=== PATIENT | male | born 1950 | race Caucasian/White ===

== ENCOUNTER → 2018-03-23 10:58 | Outpatient (CLI) | payer MEDICARE, OTHER, SELFPAY ==
[2018-03-23 11:21] LABS: Add Manual Diff / Slide Review NO; Basophils Percent Auto 0.9 % (0-2); Hematocrit 54.2 % (41-53); Hemoglobin 17.9 g/dL (13.5-17.5); Lymphocytes Percent Auto 19.5 % (25-40); Mean Corpuscular HGB Conc 32.9 % (30-36); Mean Corpuscular Hemoglobin 28.4 PG (26-34); Mean Corpuscular Volume 86.2 fL (80-100); Monocytes Percent Auto 8.7 % (3-14); Neutrophils Absolute Auto 4300 /uL (3000-5900); Neutrophils Percent Auto 67.9 % (50-75); Platelet Count 323 X10^3/uL (150-400); Red Blood Cell Count 6.29 X10^6/uL (4.5-5.9); Red Cell Distribution Width 17.4 % (11.6-14.8); White Blood Cell Count 6.3 X10^3/uL (4.5-11.0)
[2018-03-23 11:36] LABS: Alanine Aminotransferase 30 IU/L (21-72); Albumin 4.2 g/dL (3.5-5.0); Albumin Globulin Ratio 1.6 (1.0-2.8); Alkaline Phosphatase 67 U/L (38-126); Aspartate Aminotransferase 31 IU/L (17-59); BUN Creatinine Ratio 17.7 (6-22); Blood Urea Nitrogen 23 mg/dL (9-20); Calcium 9.3 mg/dL (8.4-10.2); Carbon Dioxide 33 mmol/L (22-32); Chloride 104 mmol/L (98-107); Estimated Glomerular Filt Rate 55.2 mL/min (>60); Globulin 2.7 g/dL (1.7-4.1); Glucose 85 mg/dL (80-110); HEMOLYSIS < 15 (0-50); Lactate Dehydrogenase 426 U/L (313-618); Potassium 4.4 mmol/L (3.4-5.1); Sodium 143 mmol/L (137-145); Total Protein 6.9 g/dL (6.3-8.2)
== END ==
PROVIDERS: Family Provider Family Medicine; PCP Family Medicine; Visit Provider Nurse Practitioner Gerontology
DX: C67.9 Malignant neoplasm of bladder, unspecified (principal)
CPT/HCPCS: 36415; 80053; 83615; 85025

== ENCOUNTER → 2018-03-30 07:56 | Outpatient (CLI) | payer MEDICARE, OTHER, SELFPAY ==
--- NOTE | 2018-03-30 07:59 | DI.US.S_ITS ---
PROCEDURE: US ABDOMEN COMPLETE INDICATIONS: HIGH BILIRUBIN TECHNIQUE: Real-time scanning was performed of the abdominal and retroperitoneal organs, with image documentation. COMPARISON: Outside Facility, RG, CT CHEST/ABD/PEL W/CONTRAST, 12/26/2015, 13:05. FINDINGS: Liver: Liver is normal in size and homogeneous in echotexture. Gallbladder: Multiple gallstones present. No gallbladder wall thickening or pericholecystic fluid. Negative sonographic Holder sign. Biliary ducts: Intrahepatic bile ducts are non-dilated. Extrahepatic bile duct caliber measures 5.0 mm. Normal is 6-7 mm or less in diameter, or 10 mm or less post-cholecystectomy. Pancreas: Visualized portions of the pancreas are sonographically normal. Spleen: Spleen is normal in size and homogeneous in echotexture. Kidneys: Kidneys are normal in size and echotexture. Right kidney measures 9.8 cm long; left kidney measures 9.1 cm long. No hydronephrosis or nephrolithiasis. No solid masses. Aorta: Visualized aorta is normal in caliber at less than 3 cm. Iliacs: Not well-seen. IVC: Intrahepatic inferior vena cava is patent. Miscellaneous: No free abdominal fluid. . IMPRESSION: Cholelithiasis without acute cholecystitis. Dictated by: Addy HAJI Interpreted: Annita Ron MD on 03/30/2018 at 9:13 Approved by: Annita Ron MD, PhD on 03/30/2018 at 9:52
== END ==
PROVIDERS: Family Provider Family Medicine; PCP Family Medicine; Visit Provider Internal Medicine Hematology & Oncology
DX: K80.20 Calculus of gallbladder without cholecystitis without obstruction (principal); R17 Unspecified jaundice; D75.1 Secondary polycythemia
CPT/HCPCS: 76700

== ENCOUNTER → 2018-06-03 11:29 | Outpatient (CLI) | payer MEDICARE, OTHER, SELFPAY ==
[2018-06-03 12:18] LABS: Add Manual Diff / Slide Review NO; Basophils Percent Auto 0.8 % (0-2); Eosinophils Percent Auto 1.3 % (2-4); Hematocrit 42.1 % (41-53); Hemoglobin 13.8 g/dL (13.5-17.5); Lymphocytes Percent Auto 26.8 % (25-40); Mean Corpuscular HGB Conc 32.8 % (30-36); Mean Corpuscular Hemoglobin 28.9 PG (26-34); Neutrophils Absolute Auto 2400 /uL (3000-5900); Neutrophils Percent Auto 60.1 % (50-75); Platelet Count 299 X10^3/uL (150-400); Red Blood Cell Count 4.78 X10^6/uL (4.5-5.9); Red Cell Distribution Width 18.6 % (11.6-14.8); White Blood Cell Count 3.9 X10^3/uL (4.5-11.0)
[2018-06-03 12:32] LABS: Alanine Aminotransferase 42 IU/L (21-72); Albumin 4.2 g/dL (3.5-5.0); Albumin Globulin Ratio 1.6 (1.0-2.8); Alkaline Phosphatase 69 U/L (38-126); Aspartate Aminotransferase 40 IU/L (17-59); BUN Creatinine Ratio 15.8 (6-22); Bilirubin Total 0.9 mg/dL (0.2-1.3); Blood Urea Nitrogen 19 mg/dL (9-20); Calcium 9.2 mg/dL (8.4-10.2); Carbon Dioxide 31 mmol/L (22-32); Chloride 104 mmol/L (98-107); Estimated Glomerular Filt Rate > 60.0 mL/min (>60); Globulin 2.7 g/dL (1.7-4.1); Glucose 92 mg/dL (80-110); HEMOLYSIS < 15 (0-50); Potassium 4.5 mmol/L (3.4-5.1); Sodium 145 mmol/L (137-145); Total Protein 6.9 g/dL (6.3-8.2)
== END ==
PROVIDERS: PCP Family Medicine; Visit Provider Internal Medicine
DX: D45 Polycythemia vera (principal)
CPT/HCPCS: 36415; 80053; 85025

== ENCOUNTER → 2018-06-17 12:20 | Outpatient (CLI) | payer MEDICARE, OTHER, SELFPAY ==
[2018-06-17 12:42] LABS: Add Manual Diff / Slide Review NO; Basophils Percent Auto 1.6 % (0-2); Eosinophils Percent Auto 2.4 % (2-4); Hematocrit 43.5 % (41-53); Hemoglobin 14.3 g/dL (13.5-17.5); Lymphocytes Percent Auto 30.5 % (25-40); Mean Corpuscular HGB Conc 32.9 % (30-36); Mean Corpuscular Hemoglobin 29.9 PG (26-34); Mean Corpuscular Volume 90.8 fL (80-100); Monocytes Percent Auto 9.4 % (3-14); Neutrophils Absolute Auto 2100 /uL (3000-5900); Neutrophils Percent Auto 56.1 % (50-75); Platelet Count 175 X10^3/uL (150-400); Red Blood Cell Count 4.79 X10^6/uL (4.5-5.9); Red Cell Distribution Width 27.4 % (11.6-14.8); White Blood Cell Count 3.8 X10^3/uL (4.5-11.0)
[2018-06-17 12:52] LABS: Alanine Aminotransferase 37 IU/L (21-72); Albumin 4.4 g/dL (3.5-5.0); Albumin Globulin Ratio 1.6 (1.0-2.8); Alkaline Phosphatase 68 U/L (38-126); Aspartate Aminotransferase 34 IU/L (17-59); BUN Creatinine Ratio 17.7 (6-22); Bilirubin Total 1.7 mg/dL (0.2-1.3); Blood Urea Nitrogen 23 mg/dL (9-20); Calcium 9.3 mg/dL (8.4-10.2); Carbon Dioxide 30 mmol/L (22-32); Chloride 102 mmol/L (98-107); Estimated Glomerular Filt Rate 55.2 mL/min (>60); Globulin 2.7 g/dL (1.7-4.1); Glucose 75 mg/dL (80-110); HEMOLYSIS < 15 (0-50); Potassium 4.5 mmol/L (3.4-5.1); Sodium 143 mmol/L (137-145); Total Protein 7.1 g/dL (6.3-8.2)
[2018-06-17 13:05] LABS: Macrocytosis 2+
== END ==
PROVIDERS: Family Provider Family Medicine; PCP Family Medicine; Visit Provider Internal Medicine
DX: D45 Polycythemia vera (principal)
CPT/HCPCS: 36415; 80053; 85025

== ENCOUNTER → 2018-08-03 12:02 | Outpatient (CLI) | payer MEDICARE, OTHER, SELFPAY ==
[2018-08-03 12:33] LABS: Add Manual Diff / Slide Review NO; Basophils Percent Auto 1.4 % (0-2); Eosinophils Percent Auto 1.3 % (2-4); Hemoglobin 14.5 g/dL (13.5-17.5); Lymphocytes Percent Auto 25.7 % (25-40); Mean Corpuscular HGB Conc 33.6 % (30-36); Mean Corpuscular Hemoglobin 34.5 PG (26-34); Mean Corpuscular Volume 102.7 fL (80-100); Monocytes Percent Auto 10.7 % (3-14); Neutrophils Absolute Auto 2600 /uL (3000-5900); Neutrophils Percent Auto 60.9 % (50-75); Platelet Count 309 X10^3/uL (150-400); Red Blood Cell Count 4.19 X10^6/uL (4.5-5.9); Red Cell Distribution Width 31.3 % (11.6-14.8); White Blood Cell Count 4.3 X10^3/uL (4.5-11.0)
[2018-08-03 13:01] LABS: Anisocytosis 2+; Macrocytosis 2+; RBC Morphology S
[2018-08-03 13:28] LABS: Alanine Aminotransferase 37 IU/L (21-72); Albumin 4.5 g/dL (3.5-5.0); Albumin Globulin Ratio 1.8 (1.0-2.8); Alkaline Phosphatase 66 U/L (38-126); Aspartate Aminotransferase 35 IU/L (17-59); BUN Creatinine Ratio 19.2 (6-22); Bilirubin Total 1.2 mg/dL (0.2-1.3); Blood Urea Nitrogen 25 mg/dL (9-20); Calcium 9.3 mg/dL (8.4-10.2); Carbon Dioxide 28 mmol/L (22-32); Chloride 103 mmol/L (98-107); Estimated Glomerular Filt Rate 55.2 mL/min (>60); Globulin 2.5 g/dL (1.7-4.1); Glucose 90 mg/dL (80-110); HEMOLYSIS < 15 (0-50); Potassium 4.6 mmol/L (3.4-5.1); Sodium 144 mmol/L (137-145)
== END ==
PROVIDERS: Family Provider Family Medicine; PCP Family Medicine; Visit Provider Internal Medicine
DX: D45 Polycythemia vera (principal)
CPT/HCPCS: 36415; 80053; 85025

== ENCOUNTER → 2018-09-02 10:10 | Outpatient (CLI) | payer MEDICARE, OTHER, SELFPAY ==
[2018-09-02 11:30] LABS: Add Manual Diff / Slide Review NO; Basophils Percent Auto 1.9 % (0-2); Eosinophils Percent Auto 1.4 % (2-4); Hematocrit 43.3 % (41-53); Hemoglobin 14.5 g/dL (13.5-17.5); Lymphocytes Percent Auto 28.2 % (25-40); Mean Corpuscular HGB Conc 33.5 % (30-36); Mean Corpuscular Hemoglobin 37.7 PG (26-34); Mean Corpuscular Volume 112.6 fL (80-100); Neutrophils Absolute Auto 2300 /uL (1500-7000); Neutrophils Percent Auto 57.5 % (50-75); Platelet Count 234 X10^3/uL (150-400); Red Blood Cell Count 3.85 X10^6/uL (4.5-5.9); Red Cell Distribution Width 23.7 % (11.6-14.8)
[2018-09-02 11:40] LABS: Anisocytosis 2+; Macrocytosis 2+
[2018-09-02 12:14] LABS: Alanine Aminotransferase 46 IU/L (21-72); Albumin 4.2 g/dL (3.5-5.0); Albumin Globulin Ratio 1.6 (1.0-2.8); Alkaline Phosphatase 61 U/L (38-126); Aspartate Aminotransferase 42 IU/L (17-59); BUN Creatinine Ratio 13.1 (6-22); Bilirubin Total 2.7 mg/dL (0.2-1.3); Blood Urea Nitrogen 17 mg/dL (9-20); Calcium 9.3 mg/dL (8.4-10.2); Carbon Dioxide 28 mmol/L (22-32); Chloride 100 mmol/L (98-107); Estimated Glomerular Filt Rate 55.1 mL/min (>60); Globulin 2.6 g/dL (1.7-4.1); Glucose 112 mg/dL (80-110); HEMOLYSIS < 15 (0-50); Potassium 4.4 mmol/L (3.4-5.1); Sodium 138 mmol/L (137-145); Total Protein 6.8 g/dL (6.3-8.2)
== END ==
PROVIDERS: Family Provider Family Medicine; PCP Family Medicine; Visit Provider Internal Medicine
DX: D45 Polycythemia vera (principal)
CPT/HCPCS: 36415; 80053; 85025

== ENCOUNTER → 2018-09-09 11:30 | Oncology outpatient (ONC) | payer MEDICARE, OTHER, SELFPAY ==
[2018-03-25 09:58] VITALS: BP 135/81; PULSE 65; RESP 18; TEMP 36.7; O2SAT 99
--- NOTE | 2018-03-25 10:18 | ONC.PN ---
Assessment and Plan (1) History of malignant neoplasm of bladder Onset Date: 08/06/17 Current visit: No Status: None History of T2 N0 muscle invasive bladder cancer, status post neoadjuvant chemotherapy followed by radical cystectomy, remains recurrence free. He has a follow-up yearly appointment with his urologist, Dr. Srinivas Barros in July, and will have a CT IVP then. (2) Malignant melanoma of left ear Onset Date: 08/06/17 Current visit: No Status: None History of multiple early stage melanomas, including melanoma in right ear lisset. No evidence of recurrence on clinical exam and no palpable lymphadenopathy. He sees his training engineer every 6-12 months. 03/25/18 10:34 03/25/18 10:38 (3) Acquired polycythemia Current visit: Yes Status: Acute Polycythemia appears to be a new problem. This is nonsmoker individual. No related symptoms. Spleen is not palpable by clinical exam. We will repeat CBC today and obtain laboratory workup including serum erythropoietin, LDH, and JAK2 mutation analysis. Abdominal ultrasound for assessment of spleen size. Follow-up in 2 weeks. 03/25/18 10:34 03/25/18 10:38 (4) Hyperbilirubinemia Current visit: Yes Status: Acute Serum bilirubin was previously normal in 2015. Since then it has increased to 2.0. No palpable hepatomegaly. Bilirubin panel is obtained today. Abdominal ultrasound for assessment of gallstones, liver size, lesions and echogenicity. Follow-up in 2 weeks. 03/25/18 10:36 PN -Subjective Interval history: Demetrio Donovan is a 67-year-old gentleman, presenting today for oncology follow-up of resected stage II bladder cancer and history of early stage melanoma. In 2014, he was diagnosed with muscle invasive, T2 N0 bladder cancer. He was treated with neoadjuvant GC chemotherapy x4 cycles, to which he had a complete pathological response. He underwent radical cystoprostatectomy with pelvic lymphadenectomy and ileal loop diversion, on 09/13/2015 at [facility] by Dr. Srinivas Barros. As mentioned, he had a complete pathological response, and remains recurrence free. Last surveillance CT scan was reportedly in 07/2017 at [facility], and that was negative. I will request and reviewe that. Of note, staging bone scan in 03/2015 had showed abnormal uptake in left 9th rib and left iliac crest, but these were present on a previous CT scan in 07/2009, therefore benign. The patient has no neurological complaints. He operates his urostomy well and has no issues with it. Daphnie sim also has history of multiple basal cell carcinomas of the skin. He has had 3 melanomas as well. Two melanoma were detected in 2015, 1 in left upper back and the other inside right ear lisset. He underwent wide local excision of left back melanoma, resection of right conchal scar, and right level 2 sentinel lymph node dissection in 01/2016 at [facility] by Dr Munir Andersen, but there was no residual melanoma, and 2 sentinel lymph nodes were negative. He did not require any further therapy. He sees his training engineer a never it every 6-12 months for complete skin survey. He comes today for a routine follow-up. He feels very well and has no complaints. CBC and CMP were done today. He has some polycythemia with hemoglobin 17.9 and hematocrit 54.2%. The rest of CBC is normal. Bilirubin is 2.0, with otherwise normal CMP. Bilirubin was 1.7 in 12/2016. Results - Imaging Additional studies: Procedures Injection or infusion of cancer chemotherapeutic substance (03/16/15) Insertion of totally implantable vascular access device [VAD] (05/02/15) Other cystoscopy (03/16/15) Other genitourinary instillation (03/16/15) Other soft tissue x-ray of chest wall (05/02/15) Other transurethral excision or destruction of lesion or tissue of bladder (03/16/15) Home Medications and Allergies Home Medications Medication Instructions Recorded Confirmed Type duloxetine [Cymbalta] 30 mg PO QDAY #90 cap 08/06/17 Rx omeprazole magnesium [Prilosec OTC] 20 mg PO PRN #0 08/06/17 History [D-MANNOSE] 500 mg PO Q DAY #30 mg 09/02/17 History multivitamin [Multiple Vitamins] 1 tab PO QDAY #0 09/02/17 History Allergies Allergy/AdvReac Type Severity Reaction Status Date / Time Sulfa (Sulfonamide Allergy Intermediate RASH Unverified 12/09/17 12:26 Antibiotics) (DON'T [SULFA (SULFONAMIDE KNOW IF IT ANTIBIOTICS)] WAS THIS OR THE PYRIDIUM) phenazopyridine AdvReac Intermediate RASH Unverified 04/11/18 12:26 [From PYRIDIUM] (UNSURE IF IT WAS THIS OR THE SULFA) Exam Vital signs: Last Vital Signs Temp 98.1 F 03/25/18 09:58 Pulse 65 03/25/18 09:58 Resp 18 03/25/18 09:58 BP 135/81 H 03/25/18 09:58 Pulse Ox 99 03/25/18 09:58 - Constitutional positive no acute distress - Routine HEENT Exam Head: Present: normocephalic, atraumatic ENT: Present: mucous membranes moist, external ear normal - Routine Neck Exam Present: supple. Absent: lymphadenopathy - Routine Respiratory Exam Present: Clear to auscultation bilaterally - Routine Cardiovascular Exam Present: RRR - Routine Abdominal Exam Present: soft. Absent: organomegaly, mass - Routine Extremities Exam Absent: edema
--- NOTE | 2018-03-25 10:30 | P.PNONC_ITS ---
Assessment and Plan (1) History of malignant neoplasm of bladder Onset Date: 08/06/17 Current visit: No Status: None History of T2 N0 muscle invasive bladder cancer, status post neoadjuvant chemotherapy followed by radical cystectomy, remains recurrence free. He has a follow-up yearly appointment with his urologist, Dr. Srinivas Barros in July , and will have a CT IVP then. (2) Malignant melanoma of left ear Onset Date: 08/06/17 Current visit: No Status: None History of multiple early stage melanomas, including melanoma in right ear lisset. No evidence of recurrence on clinical exam and no palpable lymphadenopathy. He sees his clean up worker every 6-12 months. 03/25/18 10:34 03/25/18 10:38 (3) Acquired polycythemia Current visit: Yes Status: Acute Polycythemia appears to be a new problem. This is nonsmoker individual. No related symptoms. Spleen is not palpable by clinical exam. We will repeat CBC today and obtain laboratory workup including serum erythropoietin, LDH, and JAK2 mutation analysis. Abdominal ultrasound for assessment of spleen size. Follow-up in 2 weeks. 03/25/18 10:34 03/25/18 10:38 (4) Hyperbilirubinemia Current visit: Yes Status: Acute Serum bilirubin was previously normal in 2015. Since then it has increased to 2.0. No palpable hepatomegaly. Bilirubin panel is obtained today. Abdominal ultrasound for assessment of gallstones, liver size, lesions and echogenicity. Follow-up in 2 weeks. 03/25/18 10:36 PN -Subjective Interval history: Demetrio Donovan is a 67-year-old gentleman, presenting today for oncology follow- up of resected stage II bladder cancer and history of early stage melanoma. In 2014, he was diagnosed with muscle invasive, T2 N0 bladder cancer. He was treated with neoadjuvant GC chemotherapy x4 cycles, to which he had a complete pathological response. He underwent radical cystoprostatectomy with pelvic lymphadenectomy and ileal loop diversion, on 09/13/2015 at [facility] by Dr. Srinivas Barros. As mentioned, he had a complete pathological response, and remains recurrence free. Last surveillance CT scan was reportedly in 07/2017 at [facility], and that was negative. I will request and reviewe that. Of note, staging bone scan in 03/2015 had showed abnormal uptake in left 9th rib and left iliac crest , but these were present on a previous CT scan in 07/2009, therefore benign. The patient has no neurological complaints. He operates his urostomy well and has no issues with it. Daphnie sim also has history of multiple basal cell carcinomas of the skin. He has had 3 melanomas as well. Two melanoma were detected in 2015, 1 in left upper back and the other inside right ear lisset. He underwent wide local excision of left back melanoma, resection of right conchal scar, and right level 2 sentinel lymph node dissection in 01/2016 at [facility] by Dr Munir Andersen, but there was no residual melanoma, and 2 sentinel lymph nodes were negative. He did not require any further therapy. He sees his clean up worker a never it every 6-12 months for complete skin survey. He comes today for a routine follow-up. He feels very well and has no complaints. CBC and CMP were done today. He has some polycythemia with hemoglobin 17.9 and hematocrit 54.2%. The rest of CBC is normal. Bilirubin is 2.0, with otherwise normal CMP. Bilirubin was 1.7 in 12/2016. Results - Imaging Additional studies: Procedures Injection or infusion of cancer chemotherapeutic substance (03/16/15) Insertion of totally implantable vascular access device [VAD] (05/02/15) Other cystoscopy (03/16/15) Other genitourinary instillation (03/16/15) Other soft tissue x-ray of chest wall (05/02/15) Other transurethral excision or destruction of lesion or tissue of bladder () Home Medications and Allergies Home Medications Medication Instructions Recorded Confirmed Type duloxetine [Cymbalta] 30 mg PO QDAY #90 cap 08/06/17 Rx omeprazole magnesium [Prilosec OTC] 20 mg PO PRN #0 08/06/17 History [D-MANNOSE] 500 mg PO Q DAY #30 mg 09/02/17 History multivitamin [Multiple Vitamins] 1 tab PO QDAY #0 09/02/17 History Allergies Allergy/AdvReac Type Severity Reaction Status Date / Time Sulfa (Sulfonamide Allergy Intermediate RASH Unverified 12/09/17 12:26 Antibiotics) (DON'T [SULFA (SULFONAMIDE KNOW IF IT ANTIBIOTICS)] WAS THIS OR THE PYRIDIUM) phenazopyridine AdvReac Intermediate RASH Unverified 04/11/18 12:26 [From PYRIDIUM] (UNSURE IF IT WAS THIS OR THE SULFA) Exam Vital signs: Last Vital Signs Temp 98.1 F 03/25/18 09:58 Pulse 65 03/25/18 09:58 Resp 18 03/25/18 09:58 BP 135/81 H 03/25/18 09:58 Pulse Ox 99 03/25/18 09:58 - Constitutional positive no acute distress - Routine HEENT Exam Head: Present: normocephalic, atraumatic ENT: Present: mucous membranes moist, external ear normal - Routine Neck Exam Present: supple. Absent: lymphadenopathy - Routine Respiratory Exam Present: Clear to auscultation bilaterally - Routine Cardiovascular Exam Present: RRR - Routine Abdominal Exam Present: soft. Absent: organomegaly, mass - Routine Extremities Exam Absent: edema
[2018-03-25 12:18] LABS: Add Manual Diff / Slide Review NO; Basophils Percent Auto 1.2 % (0-2); Eosinophils Percent Auto 3.3 % (2-4); Hematocrit 54.6 % (41-53); Hemoglobin 18.1 g/dL (13.5-17.5); Lymphocytes Percent Auto 21.3 % (25-40); Mean Corpuscular HGB Conc 33.1 % (30-36); Mean Corpuscular Hemoglobin 28.4 PG (26-34); Mean Corpuscular Volume 85.9 fL (80-100); Monocytes Percent Auto 9.7 % (3-14); Neutrophils Absolute Auto 3600 /uL (3000-5900); Neutrophils Percent Auto 64.5 % (50-75); Platelet Count 317 X10^3/uL (150-400); Red Blood Cell Count 6.35 X10^6/uL (4.5-5.9); Red Cell Distribution Width 16.8 % (11.6-14.8); White Blood Cell Count 5.6 X10^3/uL (4.5-11.0)
[2018-03-25 12:35] LABS: Bilirubin Direct 0.3 mg/dL (0.0-0.4); Bilirubin Total 1.7 mg/dL (0.2-1.3)
[2018-03-25 12:37] LABS: Alanine Aminotransferase 34 IU/L (21-72); Albumin 4.3 g/dL (3.5-5.0); Albumin Globulin Ratio 1.4 (1.0-2.8); Alkaline Phosphatase 75 U/L (38-126); Aspartate Aminotransferase 40 IU/L (17-59); BUN Creatinine Ratio 18.5 (6-22); Bilirubin Total 1.6 mg/dL (0.2-1.3); Blood Urea Nitrogen 24 mg/dL (9-20); Calcium 9.3 mg/dL (8.4-10.2); Carbon Dioxide 32 mmol/L (22-32); Chloride 100 mmol/L (98-107); Estimated Glomerular Filt Rate 55.2 mL/min (>60); Glucose 79 mg/dL (80-110); HEMOLYSIS < 15 (0-50); Lactate Dehydrogenase 452 U/L (313-618); Sodium 140 mmol/L (137-145); Total Protein 7.3 g/dL (6.3-8.2)
[2018-03-26 13:40] LABS: Erythropoietin < 1.0 mIU/mL (2.6-18.5)
[2018-04-15 14:42] VITALS: BP 137/89; PULSE 65; RESP 16; TEMP 36.7; O2SAT 98
--- NOTE | 2018-04-15 15:09 | ONC.PN ---
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 Patient is now recurrence free. [facility] by Dr. Srinivas martinez. Current visit: No Status: None (2) Malignant melanoma of left ear Onset Date: 08/06/17 Problem details: No evidence of recurrence on [place] examination and no palpable lymphadenopathy. Patient is being followed at [facility] business solution analyst every 6-12 months. 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 He is not being followed at [facility]. Phlebotomy has been initiated since March at [facility] The next phlebotomy has been scheduled for April 22 at [facility]. Patient and patient's before continue follow-up at [facility] for multiple medical problems including polycythemia vera, urothelial carcinoma of the bladder and melanoma of the skin. Current visit: Yes Status: Acute (4) Hyperbilirubinemia Current visit: Yes Status: Acute - Time Spent with Patient I talked with the patient and patient's that I would tentatively scheduled the patient to come back to see us in about 2-3 months. Meanwhile if there is any new events or if the patient wishes to come to locally to continue phlebotomy, I encouraged the patient to call us. PN -Subjective Interval history: Demetrio Donovan is a 67-year-old gentleman with history of bladder cancer and early stage melanoma. In 2014, he was diagnosed with muscle invasive, T2 N0 bladder cancer. He was treated with neoadjuvant GC chemotherapy x4 cycles, to which he had a complete pathological response. He underwent radical cystoprostatectomy with pelvic lymphadenectomy and ileal loop diversion, on 09/13/2015 at [facility] by Dr. Srinivas Barros. As mentioned, he had a complete pathological response, and remains recurrence free. 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 He has had 3 melanomas as well. Two melanoma were detected in 2015, 1 in left upper back and the other inside right ear lisset. He underwent wide local excision of left back melanoma, resection of right conchal scar, and right level 2 sentinel lymph node dissection in 01/2016 at [facility] by Dr Munir Anderesn, but there was no residual melanoma, and 2 sentinel lymph nodes were negative. He did not require any further therapy. He sees his business solution analyst every 6-12 months for complete skin survey. The patient presents here today for scheduled follow-up visit. The test for AYAH 2 mutation showed that patient actually is JAK2 Exon 12 mutation positive. Patient over the weekend was evaluated at the [facility] and underwent a phlebotomy. The next phlebotomy has already been scheduled for next . Clinically patient has been doing well. Patient said that the headache seems to be getting better. No aqua sensitivity. No shortness of breath, no chest pain. Patient is also taking aspirin after he receives the diagnosis of the polycythemia vera. Patient currently is being followed at [facility] by Dr. Asha Reed. No bone marrow aspiration biopsy was recommended at this moment. Results - Labs Laboratory Last Values WBC 5.6 X10^3/uL (4.5-11.0) 03/25/18 11:38 RBC 6.35 X10^6/uL (4.5-5.9) H 03/25/18 11:38 Hgb 18.1 g/dL (13.5-17.5) H 03/25/18 11:38 Hct 54.6 % (41-53) H 03/25/18 11:38 MCV 85.9 fL (80-100) 03/25/18 11:38 MCH 28.4 PG (26-34) 03/25/18 11:38 MCHC 33.1 % (30-36) 03/25/18 11:38 RDW 16.8 % (11.6-14.8) H 03/25/18 11:38 Plt Count 317 X10^3/uL (150-400) 03/25/18 11:38 Neut % (Auto) 64.5 % (50-75) 03/25/18 11:38 Lymph % (Auto) 21.3 % (25-40) L 03/25/18 11:38 [place] % (Auto) 9.7 % (3-14) 03/25/18 11:38 Eos % (Auto) 3.3 % (2-4) 03/25/18 11:38 Baso % (Auto) 1.2 % (0-2) 03/25/18 11:38 Neut # (Auto) 3600 /uL (4791-2893) 03/25/18 11:38 Sodium 140 mmol/L (137-145) 03/25/18 11:38 Potassium 4.0 mmol/L (3.4-5.1) 03/25/18 11:38 Chloride 100 mmol/L (98-107) 03/25/18 11:38 Carbon Dioxide 32 mmol/L (22-32) 03/25/18 11:38 BUN 24 mg/dL (9-20) H 03/25/18 11:38 Creatinine 1.30 mg/dL (0.66-1.25) H 03/25/18 11:38 Estimated GFR 55.2 mL/min (>60) L 03/25/18 11:38 BUN/Creatinine Ratio 18.5 (6-22) 03/25/18 11:38 Glucose 79 mg/dL (80-110) L 03/25/18 11:38 Calcium 9.3 mg/dL (8.4-10.2) 03/25/18 11:38 Erythropoietin < 1.0 mIU/mL (2.6-18.5) L 03/25/18 11:38 Total Bilirubin 1.6 mg/dL (0.2-1.3) H 03/25/18 11:38 Direct Bilirubin 0.3 mg/dL (0.0-0.4) 03/25/18 11:38 AST 40 IU/L (17-59) 03/25/18 11:38 ALT 34 IU/L (21-72) 03/25/18 11:38 Alkaline Phosphatase 75 U/L (38-126) 03/25/18 11:38 Lactate Dehydrogenase 452 U/L (313-618) 03/25/18 11:38 Total Protein 7.3 g/dL (6.3-8.2) 03/25/18 11:38 Albumin 4.3 g/dL (3.5-5.0) 03/25/18 11:38 Globulin 3.0 g/dL (1.7-4.1) 03/25/18 11:38 Albumin/Globulin Ratio 1.4 (1.0-2.8) 03/25/18 11:38 Ref Test (Refrig) 03/25/18 11:38 - Imaging Additional studies: Procedures Injection or infusion of cancer chemotherapeutic substance (03/16/15) Insertion of totally implantable vascular access device [VAD] (05/02/15) Other cystoscopy (03/16/15) Other genitourinary instillation (03/16/15) Other soft tissue x-ray of chest wall (05/02/15) Other transurethral excision or destruction of lesion or tissue of bladder (03/16/15) Home Medications and Allergies Home Medications Medication Instructions Recorded Confirmed Type [D-MANNOSE] 500 mg PO Q DAY #30 mg 09/02/17 04/15/18 History aspirin 81 mg PO DAILY 04/15/18 04/15/18 History duloxetine [Cymbalta] 300 mg PO QDAY 04/15/18 History hydroxyurea 500 mg PO DAILY 04/15/18 04/15/18 History Allergies Allergy/AdvReac Type Severity Reaction Status Date / Time Sulfa (Sulfonamide Allergy Intermediate RASH Verified 04/15/18 14:45 Antibiotics) (DON'T [SULFA (SULFONAMIDE KNOW IF IT ANTIBIOTICS)] WAS THIS OR THE PYRIDIUM) phenazopyridine AdvReac Intermediate RASH Verified 04/15/18 14:45 [From PYRIDIUM] (UNSURE IF IT WAS THIS OR THE SULFA) Exam Vital signs: Last Vital Signs Temp 98.1 F 04/15/18 14:42 Pulse 65 04/15/18 14:42 Resp 16 04/15/18 14:42 BP 137/89 H 04/15/18 14:42 Pulse Ox 98 04/15/18 14:42 - Constitutional positive no acute distress Comments: He is a very well developed and nourished. - Routine HEENT Exam Head: Present: normocephalic, atraumatic Eye: Present: EOMI, PERRL, normal accommodation. Absent: conjunctival icterus ENT: Present: mucous membranes moist - Routine Neck Exam Present: supple, full ROM, JVD. Absent: carotid bruit - Routine Respiratory Exam Present: Clear to auscultation bilaterally. Absent: wheezes - Routine Cardiovascular Exam Present: RRR, S1, S2. Absent: murmur, gallop, rubs - Routine Abdominal Exam Present: soft, normoactive bowel sounds. Absent: tenderness Palpation/Percussion: Absent: hepatomegaly, splenomegaly - Routine Extremities Exam Present: full ROM. Absent: cyanosis, clubbing, edema - Routine Back/Spine Exam Back/Spine: Present: full ROM. Absent: vertebral tenderness - Routine Neurological Exam Present: alert, oriented X3, CN II-XII intact. Absent: sensory deficit, motor deficit - Routine Psychiatric Exam Present: normal affect, normal thought process, cooperative (Your is), good insight, good judgment. Absent: depressed (It)
--- NOTE | 2018-04-15 15:14 | P.PNONC_ITS ---
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 Patient is now recurrence free. Patient is being followed at [facility] by Dr. Srinivas martinez. Current visit: No Status: None (2) Malignant melanoma of left ear Onset Date: 08/06/17 Problem details: No evidence of recurrence on [place] examination and no palpable lymphadenopathy. Patient is being followed at [facility] lithographic photographer apprentice every 6-12 months. 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 He is not being followed at [facility]. Phlebotomy has been initiated since March at [facility]. The next phlebotomy has been scheduled for April 22 at [facility]. Patient and patient's before continue follow-up at [facility] for multiple medical problems including polycythemia vera, urothelial carcinoma of the bladder and melanoma of the skin. Current visit: Yes Status : Acute (4) Hyperbilirubinemia Current visit: Yes Status: Acute - Time Spent with Patient I talked with the patient and patient's that I would tentatively scheduled the patient to come back to see us in about 2-3 months. Meanwhile if there is any new events or if the patient wishes to come to locally to continue phlebotomy, I encouraged the patient to call us. PN -Subjective Interval history: Demetrio Donovan is a 67-year-old gentleman with history of bladder cancer and early stage melanoma. In 2014, he was diagnosed with muscle invasive, T2 N0 bladder cancer. He was treated with neoadjuvant GC chemotherapy x4 cycles, to which he had a complete pathological response. He underwent radical cystoprostatectomy with pelvic lymphadenectomy and ileal loop diversion, on at [facility] by Dr. Srinivas Barros. As mentioned, he had a complete pathological response, and remains recurrence free. 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 He has had 3 melanomas as well. Two melanoma were detected in 2015, 1 in left upper back and the other inside right ear lisset. He underwent wide local excision of left back melanoma, resection of right conchal scar, and right level 2 sentinel lymph node dissection in 2015 at [facility] by Dr Munir Andersen, but there was no residual melanoma, and 2 sentinel lymph nodes were negative. He did not require any further therapy. He sees his lithographic photographer apprentice every 6-12 months for complete skin survey. The patient presents here today for scheduled follow-up visit. The test for AYAH 2 mutation showed that patient actually is JAK2 Exon 12 mutation positive. Patient over the weekend was evaluated at the [facility] and underwent a phlebotomy. The next phlebotomy has already been scheduled for next . Clinically patient has been doing well. Patient said that the headache seems to be getting better. No aqua sensitivity. No shortness of breath, no chest pain. Patient is also taking aspirin after he receives the diagnosis of the polycythemia vera. Patient currently is being followed at [facility] by Dr. Asha Reed. No bone marrow aspiration biopsy was recommended at this moment. Results - Labs Laboratory Last Values WBC 5.6 X10^3/uL (4.5-11.0) 03/25/18 11:38 RBC 6.35 X10^6/uL (4.5-5.9) H 03/25/18 11:38 Hgb 18.1 g/dL (13.5-17.5) H 03/25/18 11:38 Hct 54.6 % (41-53) H 03/25/18 11:38 MCV 85.9 fL (80-100) 03/25/18 11:38 MCH 28.4 PG (26-34) 03/25/18 11:38 MCHC 33.1 % (30-36) 03/25/18 11:38 RDW 16.8 % (11.6-14.8) H 03/25/18 11:38 Plt Count 317 X10^3/uL (150-400) 03/25/18 11:38 Neut % (Auto) 64.5 % (50-75) 03/25/18 11:38 Lymph % (Auto) 21.3 % (25-40) L 03/25/18 11:38 Ceiba % (Auto) 9.7 % (3-14) 03/25/18 11:38 Eos % (Auto) 3.3 % (2-4) 03/25/18 11:38 Baso % (Auto) 1.2 % (0-2) 03/25/18 11:38 Neut # (Auto) 3600 /uL (6731-3678) 03/25/18 11:38 Sodium 140 mmol/L (137-145) 03/25/18 11:38 Potassium 4.0 mmol/L (3.4-5.1) 03/25/18 11:38 Chloride 100 mmol/L (98-107) 03/25/18 11:38 Carbon Dioxide 32 mmol/L (22-32) 03/25/18 11:38 BUN 24 mg/dL (9-20) H 03/25/18 11:38 Creatinine 1.30 mg/dL (0.66-1.25) H 03/25/18 11:38 Estimated GFR 55.2 mL/min (>60) L 03/25/18 11:38 BUN/Creatinine Ratio 18.5 (6-22) 03/25/18 11:38 Glucose 79 mg/dL (80-110) L 03/25/18 11:38 Calcium 9.3 mg/dL (8.4-10.2) 03/25/18 11:38 Erythropoietin < 1.0 mIU/mL (2.6-18.5) L 03/25/18 11:38 Total Bilirubin 1.6 mg/dL (0.2-1.3) H 03/25/18 11:38 Direct Bilirubin 0.3 mg/dL (0.0-0.4) 03/25/18 11:38 AST 40 IU/L (17-59) 03/25/18 11:38 ALT 34 IU/L (21-72) 03/25/18 11:38 Alkaline Phosphatase 75 U/L (38-126) 03/25/18 11:38 Lactate Dehydrogenase 452 U/L (313-618) 03/25/18 11:38 Total Protein 7.3 g/dL (6.3-8.2) 03/25/18 11:38 Albumin 4.3 g/dL (3.5-5.0) 03/25/18 11:38 Globulin 3.0 g/dL (1.7-4.1) 03/25/18 11:38 Albumin/Globulin Ratio 1.4 (1.0-2.8) 03/25/18 11:38 Ref Test (Refrig) 03/25/18 11:38 - Imaging Additional studies: Procedures Injection or infusion of cancer chemotherapeutic substance (03/16/15) Insertion of totally implantable vascular access device [VAD] (05/02/15) Other cystoscopy (03/16/15) Other genitourinary instillation (03/16/15) Other soft tissue x-ray of chest wall (05/02/15) Other transurethral excision or destruction of lesion or tissue of bladder () Home Medications and Allergies Home Medications Medication Instructions Recorded Confirmed Type [D-MANNOSE] 500 mg PO Q DAY #30 mg 09/02/17 04/15/18 History aspirin 81 mg PO DAILY 04/15/18 04/15/18 History duloxetine [Cymbalta] 300 mg PO QDAY 04/15/18 History hydroxyurea 500 mg PO DAILY 04/15/18 04/15/18 History Allergies Allergy/AdvReac Type Severity Reaction Status Date / Time Sulfa (Sulfonamide Allergy Intermediate RASH Verified 04/15/18 14:45 Antibiotics) (DON'T [SULFA (SULFONAMIDE KNOW IF IT ANTIBIOTICS)] WAS THIS OR THE PYRIDIUM) phenazopyridine AdvReac Intermediate RASH Verified 04/15/18 14:45 [From PYRIDIUM] (UNSURE IF IT WAS THIS OR THE SULFA) Exam Vital signs: Last Vital Signs Temp 98.1 F 04/15/18 14:42 Pulse 65 04/15/18 14:42 Resp 16 04/15/18 14:42 BP 137/89 H 04/15/18 14:42 Pulse Ox 98 04/15/18 14:42 - Constitutional positive no acute distress Comments: He is a very well developed and nourished. - Routine HEENT Exam Head: Present: normocephalic, atraumatic Eye: Present: EOMI, PERRL, normal accommodation. Absent: conjunctival icterus ENT: Present: mucous membranes moist - Routine Neck Exam Present: supple, full ROM, JVD. Absent: carotid bruit - Routine Respiratory Exam Present: Clear to auscultation bilaterally. Absent: wheezes - Routine Cardiovascular Exam Present: RRR, S1, S2. Absent: murmur, gallop, rubs - Routine Abdominal Exam Present: soft, normoactive bowel sounds. Absent: tenderness Palpation/Percussion: Absent: hepatomegaly, splenomegaly - Routine Extremities Exam Present: full ROM. Absent: cyanosis, clubbing, edema - Routine Back/Spine Exam Back/Spine: Present: full ROM. Absent: vertebral tenderness - Routine Neurological Exam Present: alert, oriented X3, CN II-XII intact. Absent: sensory deficit, motor deficit - Routine Psychiatric Exam Present: normal affect, normal thought process, cooperative (Your is), good insight, good judgment. Absent: depressed (It)
[2018-06-17 13:35] VITALS: BP 130/78; PULSE 60; RESP 18; TEMP 37; O2SAT 98
--- NOTE | 2018-06-17 14:38 | ONC.APRN.PN ---
PN -Subjective Interval history: Demetrio Donovan is a 67-year-old gentleman with history of bladder cancer and early stage melanoma. In 2014, he was diagnosed with muscle invasive, T2 N0 bladder cancer. He was treated with neoadjuvant GC chemotherapy x4 cycles, to which he had a complete pathological response. He underwent radical cystoprostatectomy with pelvic lymphadenectomy and ileal loop diversion, on 09/13/2015 at [facility] by Dr. Srinivas Barros. As mentioned, he had a complete pathological response, and remains recurrence free. 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 He has had 3 melanomas as well. Two melanoma were detected in 2016, 1 in left upper back and the other inside right ear lisset. He underwent wide local excision of left back melanoma, resection of right conchal scar, and right level 2 sentinel lymph node dissection in 01/2016 at [facility] by Dr Munir Andersen, but there was no residual melanoma, and 2 sentinel lymph nodes were negative. He did not require any further therapy. 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 The patient presents here today for scheduled follow-up visit. The test for AYAH 2 mutation showed that patient actually is JAK2 mutation positive. Patient is also followed at [facility] . He underwent phlebotomy approx 3 months ago. Clinically patient has been doing well. Patient said that the headache seems to be getting better. No shortness of breath, no chest pain. Patient is also taking aspirin since receiving the diagnosis of the polycythemia vera. Patient currently is being followed at [facility] by Dr. Asha Reed. No bone marrow aspiration biopsy indicated per [facility]. Current dose of hydroxy urea is 500 mg once daily. Pt is alaso under the care of dermatology Dr Tracy in [place] and Dr Barros urology who manages his bladder ca with imaging, cystoscopys. Home Medications and Allergies Home Medications Medication Instructions Recorded Confirmed Type [D-MANNOSE] 500 mg PO Q DAY #30 mg 09/02/17 04/15/18 History aspirin 81 mg PO DAILY 04/15/18 04/15/18 History duloxetine [Cymbalta] 300 mg PO QDAY 04/15/18 History hydroxyurea 500 mg PO BID 04/15/18 06/17/18 History Allergies Allergy/AdvReac Type Severity Reaction Status Date / Time Sulfa (Sulfonamide Allergy Intermediate RASH Verified 04/15/18 14:45 Antibiotics) (DON'T [SULFA (SULFONAMIDE KNOW IF IT ANTIBIOTICS)] WAS THIS OR THE PYRIDIUM) phenazopyridine AdvReac Intermediate RASH Verified 04/15/18 14:45 [From PYRIDIUM] (UNSURE IF IT WAS THIS OR THE SULFA) Exam - Constitutional positive no acute distress, positive average body habitus - Routine HEENT Exam ENT: Present: mucous membranes moist, oropharynx clear - Routine Neck Exam Absent: supple, lymphadenopathy - Routine Chest/Breast/Axilla Exam Axillae: Absent: lymphadenopathy, mass, tenderness - Routine Respiratory Exam Present: Clear to auscultation bilaterally. Absent: rales, rhonchi, wheezes - Routine Cardiovascular Exam Present: RRR, S1, S2. Absent: murmur, gallop, rubs, JVD - Routine Abdominal Exam Present: soft, normoactive bowel sounds, ostomy. Absent: tenderness, distended, organomegaly, mass - Routine Extremities Exam Absent: edema, calf tenderness - Routine Skin Exam Present: intact, normal turgor. Absent: petechiae, rash - Routine Neurological Exam Present: alert, oriented X3 - Routine Psychiatric Exam Present: normal affect Results - Labs Laboratory Last Values WBC 5.6 X10^3/uL (4.5-11.0) 03/25/18 11:38 RBC 6.35 X10^6/uL (4.5-5.9) H 03/25/18 11:38 Hgb 18.1 g/dL (13.5-17.5) H 03/25/18 11:38 Hct 54.6 % (41-53) H 03/25/18 11:38 MCV 85.9 fL (80-100) 03/25/18 11:38 MCH 28.4 PG (26-34) 03/25/18 11:38 MCHC 33.1 % (30-36) 03/25/18 11:38 RDW 16.8 % (11.6-14.8) H 03/25/18 11:38 Plt Count 317 X10^3/uL (150-400) 03/25/18 11:38 Neut % (Auto) 64.5 % (50-75) 03/25/18 11:38 Lymph % (Auto) 21.3 % (25-40) L 03/25/18 11:38 Gilmer % (Auto) 9.7 % (3-14) 03/25/18 11:38 Eos % (Auto) 3.3 % (2-4) 03/25/18 11:38 Baso % (Auto) 1.2 % (0-2) 03/25/18 11:38 Neut # (Auto) 3600 /uL (2755-8261) 03/25/18 11:38 Sodium 140 mmol/L (137-145) 03/25/18 11:38 Potassium 4.0 mmol/L (3.4-5.1) 03/25/18 11:38 Chloride 100 mmol/L (98-107) 03/25/18 11:38 Carbon Dioxide 32 mmol/L (22-32) 03/25/18 11:38 BUN 24 mg/dL (9-20) H 03/25/18 11:38 Creatinine 1.30 mg/dL (0.66-1.25) H 03/25/18 11:38 Estimated GFR 55.2 mL/min (>60) L 03/25/18 11:38 BUN/Creatinine Ratio 18.5 (6-22) 03/25/18 11:38 Glucose 79 mg/dL (80-110) L 03/25/18 11:38 Calcium 9.3 mg/dL (8.4-10.2) 03/25/18 11:38 Erythropoietin < 1.0 mIU/mL (2.6-18.5) L 03/25/18 11:38 Total Bilirubin 1.6 mg/dL (0.2-1.3) H 03/25/18 11:38 Direct Bilirubin 0.3 mg/dL (0.0-0.4) 03/25/18 11:38 AST 40 IU/L (17-59) 03/25/18 11:38 ALT 34 IU/L (21-72) 03/25/18 11:38 Alkaline Phosphatase 75 U/L (38-126) 03/25/18 11:38 Lactate Dehydrogenase 452 U/L (313-618) 03/25/18 11:38 Total Protein 7.3 g/dL (6.3-8.2) 03/25/18 11:38 Albumin 4.3 g/dL (3.5-5.0) 03/25/18 11:38 Globulin 3.0 g/dL (1.7-4.1) 03/25/18 11:38 Albumin/Globulin Ratio 1.4 (1.0-2.8) 03/25/18 11:38 Ref Test (Refrig) 03/25/18 11:38 - Imaging Additional studies: Procedures Injection or infusion of cancer chemotherapeutic substance (03/16/15) Insertion of totally implantable vascular access device [VAD] (05/02/15) Other cystoscopy (03/16/15) Other genitourinary instillation (03/16/15) Other soft tissue x-ray of chest wall (05/02/15) Other transurethral excision or destruction of lesion or tissue of bladder (03/16/15) Assessment and Plan (1) History of malignant neoplasm of bladder Onset Date: 08/06/17 Problem details: 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 Patient is now recurrence free. Patient is being followed at [facility] by Dr. Srinivas martinez. Current visit: No Status: None No new complaints today. No dysuria, hematuria. No flank pain. He is followed by urology Dr. Barros who manages with imaging, cystoscopys. Pt has an appoint in 2-3 weeks. (2) Malignant melanoma of left ear Onset Date: 08/06/17 Problem details: No evidence of recurrence on [place] examination and no palpable lymphadenopathy. Patient is being followed at [facility] professor of business every 6-12 months. Current visit: No Status: None Patient reports no skin changes today. No red flags on exam. Patient is followed by Dermatology Dr. Tracy whom he sees every 3 months. 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 He is not being followed at [facility]. Phlebotomy has been initiated since March at [facility]. The next phlebotomy has been scheduled for April 22 at [facility]. Patient and patient's before continue follow-up at [facility] for multiple medical problems including polycythemia vera, urothelial carcinoma of the bladder and melanoma of the skin. Current visit: Yes Status: Acute Managed primarily at [facility] with therapeutic phlebotomy. Blood work today is quite stable with a CBC demonstrating hemoglobin of 14.0 hematocrit 45.0. Platelets 993030. White count 3.2. Patient overall reports he is feeling quite well. No change in appetite. No early satiety. He has an appointment July 01 at [facility]. (4) Hyperbilirubinemia Current visit: Yes Status: Acute Bili Trejo total 1.1 today. Direct bilirubin 0.2. CMP unremarkable. - Time Spent with Patient 30 mins face to face 5 mins records review from [facility], Dr Burns 10 mins dictation
--- NOTE | 2018-09-09 11:46 | ONC.PN ---
PN -Subjective Interval history: Demetrio Donovan is a 68-year-old gentleman with history of bladder cancer and early stage melanoma. In 2014, he was diagnosed with muscle invasive, T2 N0 bladder cancer. He was treated with neoadjuvant GC x4 cycles, to which he had a complete pathological response. He underwent radical cystoprostatectomy with pelvic lymphadenectomy and ileal loop diversion on 09/13/2015 at [facility] by Dr. Srinivas Barros. Path showed complete pathological response. 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 He has had 3 melanomas as well. Two melanoma were detected in 2016, 1 in left upper back and the other inside right ear lisset. He underwent wide local excision of left back melanoma, resection of right conchal scar, and right level 2 sentinel lymph node dissection in 01/2016 at [facility] by Dr Munir Andersen, but there was no residual melanoma, and 2 sentinel lymph nodes were negative. He did not require any further therapy. He sees his analytic programmer every 6-12 months for complete skin survey. The patient presents here today for scheduled follow-up visit. The test for AYAH 2 mutation showed that patient actually is JAK2 mutation positive. Patient is also followed at [facility] . He underwent phlebotomy approx 3 months ago. Clinically patient has been doing well. Patient said that the headache seems to be getting better. No shortness of breath, no chest pain. Patient is also taking aspirin since receiving the diagnosis of the polycythemia vera. Patient currently is being followed at [facility] by Dr. Asha Reed. No bone marrow aspiration biopsy indicated per [facility]. Current dose of hydroxy urea is 500 mg once daily. Pt is also under the care of dermatology Dr Tracy in [place] and Dr Barros urology who manages his bladder ca with imaging, cystoscopys. Today: Now hydrea 500 mg bid. at least 2 months most recent phlebotomy 05/20/2018 once a year follow ujp with Dr. Barros now. derm every 6 months. ear surgeion 05/17/2018. cut him loose. as long as being followed by analytic programmer. Home Medications and Allergies Home Medications Medication Instructions Recorded Confirmed Type [D-MANNOSE] 500 mg PO Q DAY #30 mg 09/02/17 04/15/18 History aspirin 81 mg PO DAILY 04/15/18 04/15/18 History duloxetine [Cymbalta] 300 mg PO QDAY 04/15/18 History hydroxyurea 500 mg PO BID 04/15/18 06/17/18 History Allergies Allergy/AdvReac Type Severity Reaction Status Date / Time Sulfa (Sulfonamide Allergy Intermediate RASH Verified 04/15/18 14:45 Antibiotics) (DON'T [SULFA (SULFONAMIDE KNOW IF IT ANTIBIOTICS)] WAS THIS OR THE PYRIDIUM) phenazopyridine AdvReac Intermediate RASH Verified 04/15/18 14:45 [From PYRIDIUM] (UNSURE IF IT WAS THIS OR THE SULFA) Results - Labs Laboratory Last Values WBC 5.6 X10^3/uL (4.5-11.0) 03/25/18 11:38 RBC 6.35 X10^6/uL (4.5-5.9) H 03/25/18 11:38 Hgb 18.1 g/dL (13.5-17.5) H 03/25/18 11:38 Hct 54.6 % (41-53) H 03/25/18 11:38 MCV 85.9 fL (80-100) 03/25/18 11:38 MCH 28.4 PG (26-34) 03/25/18 11:38 MCHC 33.1 % (30-36) 03/25/18 11:38 RDW 16.8 % (11.6-14.8) H 03/25/18 11:38 Plt Count 317 X10^3/uL (150-400) 03/25/18 11:38 Neut % (Auto) 64.5 % (50-75) 03/25/18 11:38 Lymph % (Auto) 21.3 % (25-40) L 03/25/18 11:38 [place] % (Auto) 9.7 % (3-14) 03/25/18 11:38 Eos % (Auto) 3.3 % (2-4) 03/25/18 11:38 Baso % (Auto) 1.2 % (0-2) 03/25/18 11:38 Neut # (Auto) 3600 /uL (3618-7499) 03/25/18 11:38 Sodium 140 mmol/L (137-145) 03/25/18 11:38 Potassium 4.0 mmol/L (3.4-5.1) 03/25/18 11:38 Chloride 100 mmol/L (98-107) 03/25/18 11:38 Carbon Dioxide 32 mmol/L (22-32) 03/25/18 11:38 BUN 24 mg/dL (9-20) H 03/25/18 11:38 Creatinine 1.30 mg/dL (0.66-1.25) H 03/25/18 11:38 Estimated GFR 55.2 mL/min (>60) L 03/25/18 11:38 BUN/Creatinine Ratio 18.5 (6-22) 03/25/18 11:38 Glucose 79 mg/dL (80-110) L 03/25/18 11:38 Calcium 9.3 mg/dL (8.4-10.2) 03/25/18 11:38 Erythropoietin < 1.0 mIU/mL (2.6-18.5) L 03/25/18 11:38 Total Bilirubin 1.6 mg/dL (0.2-1.3) H 03/25/18 11:38 Direct Bilirubin 0.3 mg/dL (0.0-0.4) 03/25/18 11:38 AST 40 IU/L (17-59) 03/25/18 11:38 ALT 34 IU/L (21-72) 03/25/18 11:38 Alkaline Phosphatase 75 U/L (38-126) 03/25/18 11:38 Lactate Dehydrogenase 452 U/L (313-618) 03/25/18 11:38 Total Protein 7.3 g/dL (6.3-8.2) 03/25/18 11:38 Albumin 4.3 g/dL (3.5-5.0) 03/25/18 11:38 Globulin 3.0 g/dL (1.7-4.1) 03/25/18 11:38 Albumin/Globulin Ratio 1.4 (1.0-2.8) 03/25/18 11:38 Ref Test (Refrig) 03/25/18 11:38 - Imaging Additional studies: Procedures Injection or infusion of cancer chemotherapeutic substance (03/16/15) Insertion of totally implantable vascular access device [VAD] (05/02/15) Other cystoscopy (03/16/15) Other genitourinary instillation (03/16/15) Other soft tissue x-ray of chest wall (05/02/15) Other transurethral excision or destruction of lesion or tissue of bladder (03/16/15) Assessment and Plan (1) History of malignant neoplasm of bladder Onset Date: 08/06/17 Problem details: 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 Patient is now recurrence free. Patient is being followed at [facility] by Dr. Srinivas martinez. Current visit: No Status: None No new complaints today. No dysuria, hematuria. No flank pain. He is followed by urology Dr. Barros who manages with imaging, cystoscopys. Pt has an appoint in 2-3 weeks. (2) Malignant melanoma of left ear Onset Date: 08/06/17 Problem details: No evidence of recurrence on [place] examination and no palpable lymphadenopathy. Patient is being followed at [facility] analytic programmer every 6-12 months. Current visit: No Status: None Patient reports no skin changes today. No red flags on exam. Patient is followed by Dermatology Dr. Tracy whom he sees every 3 months. 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 He is not being followed at [facility]. Phlebotomy has been initiated since March at [facility]. The next phlebotomy has been scheduled for April 22 at [facility]. Patient and patient's before continue follow-up at [facility] for multiple medical problems including polycythemia vera, urothelial carcinoma of the bladder and melanoma of the skin. Managed primarily at [facility] with therapeutic phlebotomy. Blood work today is quite stable with a CBC demonstrating hemoglobin of 14.0 hematocrit 45.0. Platelets [id number]. White count 3.2. Patient overall reports he is feeling quite well. No change in appetite. No early satiety. He has an appointment July 01 at [facility]. RTC in 6 months. (4) Hyperbilirubinemia Current visit: Yes Status: Acute Bili Trejo total 1.1 today. Direct bilirubin 0.2. CMP unremarkable.
[2018-09-09 11:50] VITALS: BP 130/88; PULSE 66; RESP 18; TEMP 36.8; O2SAT 99
--- NOTE | 2018-09-09 11:53 | P.PNONC_ITS ---
PN -Subjective Interval history: Demetrio Donovan is a 68-year-old gentleman with history of bladder cancer and early stage melanoma. In 2014, he was diagnosed with muscle invasive, T2 N0 bladder cancer. He was treated with neoadjuvant GC x4 cycles, to which he had a complete pathological response. He underwent radical cystoprostatectomy with pelvic lymphadenectomy and ileal loop diversion on 09/13/2015 at [facility] by Dr. Srinivas Barros. Path showed complete pathological response. 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 He has had 3 melanomas as well. Two melanoma were detected in 2016, 1 in left upper back and the other inside right ear lisset. He underwent wide local excision of left back melanoma, resection of right conchal scar, and right level 2 sentinel lymph node dissection in 01/2016 at [facility] by Dr Munir Andersen, but there was no residual melanoma, and 2 sentinel lymph nodes were negative. He did not require any further therapy. He sees his frame bander every 6-12 months for complete skin survey. The patient presents here today for scheduled follow-up visit. The test for AYAH 2 mutation showed that patient actually is JAK2 mutation positive. Patient is also followed at [facility] . He underwent phlebotomy approx 3 months ago. Clinically patient has been doing well. Patient said that the headache seems to be getting better. No shortness of breath, no chest pain. Patient is also taking aspirin since receiving the diagnosis of the polycythemia vera. Patient currently is being followed at [facility] by Dr. Asha Reed. No bone marrow aspiration biopsy indicated per [facility]. Current dose of hydroxy urea is 500 mg once daily. Pt is also under the care of dermatology Dr Tracy in [place] and Dr Barros urology who manages his bladder ca with imaging, cystoscopys. Today: Now hydrea 500 mg bid. at least 2 months most recent phlebotomy 05/20/2018 once a year follow ujp with Dr. Barros now. derm every 6 months. ear surgeion 05/17/2018. cut him loose. as long as being followed by frame bander. Home Medications and Allergies Home Medications Medication Instructions Recorded Confirmed Type [D-MANNOSE] 500 mg PO Q DAY #30 mg 09/02/17 04/15/18 History aspirin 81 mg PO DAILY 04/15/18 04/15/18 History duloxetine [Cymbalta] 300 mg PO QDAY 04/15/18 History hydroxyurea 500 mg PO BID 04/15/18 06/17/18 History Allergies Allergy/AdvReac Type Severity Reaction Status Date / Time Sulfa (Sulfonamide Allergy Intermediate RASH Verified 04/15/18 14:45 Antibiotics) (DON'T [SULFA (SULFONAMIDE KNOW IF IT ANTIBIOTICS)] WAS THIS OR THE PYRIDIUM) phenazopyridine AdvReac Intermediate RASH Verified 04/15/18 14:45 [From PYRIDIUM] (UNSURE IF IT WAS THIS OR THE SULFA) Results - Labs Laboratory Last Values WBC 5.6 X10^3/uL (4.5-11.0) 03/25/18 11:38 RBC 6.35 X10^6/uL (4.5-5.9) H 03/25/18 11:38 Hgb 18.1 g/dL (13.5-17.5) H 03/25/18 11:38 Hct 54.6 % (41-53) H 03/25/18 11:38 MCV 85.9 fL (80-100) 03/25/18 11:38 MCH 28.4 PG (26-34) 03/25/18 11:38 MCHC 33.1 % (30-36) 03/25/18 11:38 RDW 16.8 % (11.6-14.8) H 03/25/18 11:38 Plt Count 317 X10^3/uL (150-400) 03/25/18 11:38 Neut % (Auto) 64.5 % (50-75) 03/25/18 11:38 Lymph % (Auto) 21.3 % (25-40) L 03/25/18 11:38 [place] % (Auto) 9.7 % (3-14) 03/25/18 11:38 Eos % (Auto) 3.3 % (2-4) 03/25/18 11:38 Baso % (Auto) 1.2 % (0-2) 03/25/18 11:38 Neut # (Auto) 3600 /uL (7465-1686) 03/25/18 11:38 Sodium 140 mmol/L (137-145) 03/25/18 11:38 Potassium 4.0 mmol/L (3.4-5.1) 03/25/18 11:38 Chloride 100 mmol/L (98-107) 03/25/18 11:38 Carbon Dioxide 32 mmol/L (22-32) 03/25/18 11:38 BUN 24 mg/dL (9-20) H 03/25/18 11:38 Creatinine 1.30 mg/dL (0.66-1.25) H 03/25/18 11:38 Estimated GFR 55.2 mL/min (>60) L 03/25/18 11:38 BUN/Creatinine Ratio 18.5 (6-22) 03/25/18 11:38 Glucose 79 mg/dL (80-110) L 03/25/18 11:38 Calcium 9.3 mg/dL (8.4-10.2) 03/25/18 11:38 Erythropoietin < 1.0 mIU/mL (2.6-18.5) L 03/25/18 11:38 Total Bilirubin 1.6 mg/dL (0.2-1.3) H 03/25/18 11:38 Direct Bilirubin 0.3 mg/dL (0.0-0.4) 03/25/18 11:38 AST 40 IU/L (17-59) 03/25/18 11:38 ALT 34 IU/L (21-72) 03/25/18 11:38 Alkaline Phosphatase 75 U/L (38-126) 03/25/18 11:38 Lactate Dehydrogenase 452 U/L (313-618) 03/25/18 11:38 Total Protein 7.3 g/dL (6.3-8.2) 03/25/18 11:38 Albumin 4.3 g/dL (3.5-5.0) 03/25/18 11:38 Globulin 3.0 g/dL (1.7-4.1) 03/25/18 11:38 Albumin/Globulin Ratio 1.4 (1.0-2.8) 03/25/18 11:38 Ref Test (Refrig) 03/25/18 11:38 - Imaging Additional studies: Procedures Injection or infusion of cancer chemotherapeutic substance (03/16/15) Insertion of totally implantable vascular access device [VAD] (05/02/15) Other cystoscopy (03/16/15) Other genitourinary instillation (03/16/15) Other soft tissue x-ray of chest wall (05/02/15) Other transurethral excision or destruction of lesion or tissue of bladder () Assessment and Plan (1) History of malignant neoplasm of bladder Onset Date: 08/06/17 Problem details: 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 Patient is now recurrence free. Patient is being followed at [facility] by Dr. Srinivas martinez. Current visit: No Status: None No new complaints today. No dysuria, hematuria. No flank pain. He is followed by urology Dr. Barros who manages with imaging, cystoscopys. Pt has an appoint in 2-3 weeks. (2) Malignant melanoma of left ear Onset Date: 08/06/17 Problem details: No evidence of recurrence on [place] examination and no palpable lymphadenopathy. Patient is being followed at [facility] frame bander every 6-12 months. Current visit: No Status: None Patient reports no skin changes today. No red flags on exam. Patient is followed by Dermatology Dr. Tracy whom he sees every 3 months. 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 He is not being followed at [facility]. Phlebotomy has been initiated since March at [facility]. The next phlebotomy has been scheduled for April 22 at [facility]. Patient and patient's before continue follow-up at [facility] for multiple medical problems including polycythemia vera, urothelial carcinoma of the bladder and melanoma of the skin. Managed primarily at [facility] with therapeutic phlebotomy. Blood work today is quite stable with a CBC demonstrating hemoglobin of 14.0 hematocrit 45.0. Platelets [id number]. White count 3.2. Patient overall reports he is feeling quite well. No change in appetite. No early satiety. He has an appointment July 01 at [facility]. RTC in 6 months. (4) Hyperbilirubinemia Current visit: Yes Status: Acute Bili Trejo total 1.1 today. Direct bilirubin 0.2. CMP unremarkable.
== END ==
PROVIDERS: Internal Medicine Hematology & Oncology; Family Provider Family Medicine; PCP Family Medicine; Visit Provider Internal Medicine Hematology & Oncology
DX: Z08 Encounter for follow-up examination after completed treatment for malignant neoplasm (principal); D45 Polycythemia vera; E80.6 Other disorders of bilirubin metabolism; Z85.51 Personal history of malignant neoplasm of bladder; Z85.820 Personal history of malignant melanoma of skin
CPT/HCPCS: 36415; 80053; 81270; 82247; 82248; 82668; 83615; 85025; 99215

== ENCOUNTER → 2018-09-13 14:36 | Outpatient (CLI) | payer MEDICARE, OTHER, SELFPAY ==
[2018-09-13 15:04] LABS: Add Manual Diff / Slide Review NO; Basophils Absolute Auto 100 /uL (0-100); Basophils Percent Auto 1.3 % (0-2); Eosinophils Absolute Auto 0 /uL (0-450); Eosinophils Percent Auto 0.7 % (2-4); Hematocrit 40.6 % (41-53); Hemoglobin 13.7 g/dL (13.5-17.5); Lymphocytes Absolute Auto 1500 /uL (1100-4500); Lymphocytes Percent Auto 32.1 % (25-40); Mean Corpuscular HGB Conc 33.9 % (30-36); Mean Corpuscular Hemoglobin 39.4 PG (26-34); Mean Corpuscular Volume 116.3 fL (80-100); Monocytes Absolute Auto 400 /uL (0-900); Monocytes Percent Auto 8.6 % (3-14); Neutrophils Absolute Auto 2700 /uL (1500-7000); Neutrophils Percent Auto 57.3 % (50-75); Platelet Count 132 X10^3/uL (150-400); Red Blood Cell Count 3.49 X10^6/uL (4.5-5.9); Red Cell Distribution Width 17.7 % (11.6-14.8); White Blood Cell Count 4.7 X10^3/uL (4.5-11.0)
[2018-09-13 15:50] LABS: Alanine Aminotransferase 31 IU/L (21-72); Albumin 4.2 g/dL (3.5-5.0); Albumin Globulin Ratio 1.7 (1.0-2.8); Alkaline Phosphatase 54 U/L (38-126); Amylase 72 U/L (30-110); Aspartate Aminotransferase 27 IU/L (17-59); Bilirubin Total 1.6 mg/dL (0.2-1.3); Blood Urea Nitrogen 21 mg/dL (9-20); Calcium 9.2 mg/dL (8.4-10.2); Carbon Dioxide 29 mmol/L (22-32); Chloride 103 mmol/L (98-107); Estimated Glomerular Filt Rate 50.5 mL/min (>60); Globulin 2.5 g/dL (1.7-4.1); Glucose 87 mg/dL (80-110); HEMOLYSIS < 15 (0-50); Lipase 104 U/L (23-300); Potassium 4.2 mmol/L (3.4-5.1); Sodium 141 mmol/L (137-145); Total Protein 6.7 g/dL (6.3-8.2)
[2018-09-13 16:37] LABS: Anisocytosis 1+; Macrocytosis 3+
== END ==
PROVIDERS: PCP Family Medicine; Visit Provider Family Medicine
DX: R10.32 Left lower quadrant pain (principal)
CPT/HCPCS: 36415; 80053; 82150; 83690; 85025

== ENCOUNTER → 2018-10-06 10:49 | Outpatient (CLI) | payer MEDICARE, OTHER, SELFPAY ==
[2018-10-06 11:26] LABS: Add Manual Diff / Slide Review NO; Basophils Absolute Auto 100 /uL (0-100); Basophils Percent Auto 1.8 % (0-2); Eosinophils Absolute Auto 0 /uL (0-450); Hematocrit 43.1 % (41-53); Hemoglobin 14.6 g/dL (13.5-17.5); Lymphocytes Absolute Auto 1000 /uL (1100-4500); Lymphocytes Percent Auto 28.4 % (25-40); Mean Corpuscular HGB Conc 33.9 % (30-36); Mean Corpuscular Hemoglobin 40.2 PG (26-34); Mean Corpuscular Volume 118.7 fL (80-100); Monocytes Absolute Auto 400 /uL (0-900); Monocytes Percent Auto 9.8 % (3-14); Neutrophils Absolute Auto 2200 /uL (1500-7000); Platelet Count 148 X10^3/uL (150-400); Red Blood Cell Count 3.63 X10^6/uL (4.5-5.9); Red Cell Distribution Width 15.5 % (11.6-14.8); White Blood Cell Count 3.7 X10^3/uL (4.5-11.0)
[2018-10-06 11:58] LABS: Microcytosis 2+
[2018-10-06 11:59] LABS: Alanine Aminotransferase 32 IU/L (21-72); Albumin 4.4 g/dL (3.5-5.0); Albumin Globulin Ratio 1.7 (1.0-2.8); Alkaline Phosphatase 59 U/L (38-126); Aspartate Aminotransferase 32 IU/L (17-59); BUN Creatinine Ratio 15.4 (6-22); Bilirubin Total 1.8 mg/dL (0.2-1.3); Blood Urea Nitrogen 20 mg/dL (9-20); Calcium 9.3 mg/dL (8.4-10.2); Carbon Dioxide 30 mmol/L (22-32); Chloride 101 mmol/L (98-107); Estimated Glomerular Filt Rate 55.1 mL/min (>60); Globulin 2.6 g/dL (1.7-4.1); Glucose 76 mg/dL (80-110); HEMOLYSIS < 15 (0-50); Platelet Estimate Decreased on smear; Poikilocytosis 1+; Potassium 4.5 mmol/L (3.4-5.1); Sodium 139 mmol/L (137-145)
== END ==
PROVIDERS: Family Provider Family Medicine; PCP Family Medicine; Visit Provider Internal Medicine
DX: D45 Polycythemia vera (principal)
CPT/HCPCS: 36415; 80053; 85025

== ENCOUNTER → 2019-05-31 14:48 | Outpatient (CLI) | payer MEDICARE, OTHER, SELFPAY ==
[2019-05-31 15:04] LABS: Add Manual Diff / Slide Review NO; Basophils Absolute Auto 100 /uL (0-100); Basophils Percent Auto 1.3 % (0-2); Eosinophils Absolute Auto 100 /uL (0-450); Eosinophils Percent Auto 1.1 % (2-4); Hematocrit 43.5 % (41-53); Hemoglobin 15.1 g/dL (13.5-17.5); Lymphocytes Absolute Auto 1400 /uL (1100-4500); Lymphocytes Percent Auto 26.4 % (25-40); Mean Corpuscular HGB Conc 34.7 % (30-36); Mean Corpuscular Hemoglobin 41.9 PG (26-34); Mean Corpuscular Volume 120.5 fL (80-100); Monocytes Absolute Auto 400 /uL (0-900); Monocytes Percent Auto 7.1 % (3-14); Neutrophils Absolute Auto 3300 /uL (1500-7000); Neutrophils Percent Auto 64.1 % (50-75); Platelet Count 239 X10^3/uL (150-400); Red Blood Cell Count 3.61 X10^6/uL (4.5-5.9); Red Cell Distribution Width 13.6 % (11.6-14.8); White Blood Cell Count 5.1 X10^3/uL (4.5-11.0)
[2019-05-31 15:24] LABS: Erythrocyte Sedimentation Rate 4 MM/HR (0-15)
[2019-05-31 15:26] LABS: Alanine Aminotransferase 30 IU/L (21-72); Albumin 4.2 g/dL (3.5-5.0); Albumin Globulin Ratio 1.6 (1.0-2.8); Alkaline Phosphatase 71 U/L (38-126); Aspartate Aminotransferase 34 IU/L (17-59); BUN Creatinine Ratio 16.9 (6-22); Bilirubin Total 1.3 mg/dL (0.2-1.3); Blood Urea Nitrogen 22 mg/dL (9-20); Calcium 9.3 mg/dL (8.4-10.2); Carbon Dioxide 30 mmol/L (22-32); Chloride 103 mmol/L (98-107); Estimated Glomerular Filt Rate 55.1 mL/min (>60); Globulin 2.6 g/dL (1.7-4.1); Glucose 111 mg/dL (80-110); HEMOLYSIS 20 (0-50); Potassium 4.6 mmol/L (3.4-5.1); Sodium 139 mmol/L (137-145); Total Protein 6.8 g/dL (6.3-8.2)
[2019-05-31 15:27] LABS: C-Reactive Protein Quant < 0.5 mg/dL (<1.0); Macrocytosis 3+
== END ==
PROVIDERS: PCP Family Medicine; Visit Provider Family Medicine
DX: D45 Polycythemia vera (principal); E80.6 Other disorders of bilirubin metabolism; R51 Headache; Z86.718 Personal history of other venous thrombosis and embolism
CPT/HCPCS: 36415; 80053; 85025; 85651; 86140

== ENCOUNTER → 2019-09-30 11:40 | Outpatient (CLI) | payer MEDICARE, OTHER, SELFPAY ==
[2019-09-30 13:38] LABS: Cholesterol 157 mg/dL (140-199); HDL Cholesterol 50 mg/dL (40-60); LDL Cholesterol Calculated 94 mg/dL (<100); Triglycerides 65 mg/dL (35-150)
== END ==
PROVIDERS: PCP Family Medicine; Visit Provider Family Medicine
DX: F32.9 Major depressive disorder, single episode, unspecified (principal)
CPT/HCPCS: 36415; 80061

== ENCOUNTER → 2020-02-11 11:36 | Outpatient (CLI) | payer MEDICARE, OTHER, SELFPAY ==
[2020-02-11 13:07] LABS: Add Manual Diff / Slide Review NO; Basophils Absolute Auto 100 /uL (0-100); Basophils Percent Auto 1.5 % (0-2); Eosinophils Absolute Auto 0 /uL (0-450); Eosinophils Percent Auto 1.1 % (2-4); Hematocrit 42.9 % (41-53); Lymphocytes Absolute Auto 1000 /uL (1100-4500); Mean Corpuscular Hemoglobin 43.4 PG (26-34); Monocytes Absolute Auto 500 /uL (0-900); Monocytes Percent Auto 11.3 % (3-14); Neutrophils Absolute Auto 2500 /uL (1500-7000); Neutrophils Percent Auto 62.1 % (50-75); Platelet Count 240 X10^3/uL (150-400); Red Blood Cell Count 3.45 X10^6/uL (4.5-5.9); Red Cell Distribution Width 13.4 % (11.6-14.8)
[2020-02-11 13:09] LABS: Mean Corpuscular Volume 124.3 fL (80-100)
[2020-02-11 13:32] LABS: Alanine Aminotransferase 31 IU/L (<50); Albumin 4.4 g/dL (3.5-5.0); Albumin Globulin Ratio 1.5 (1.0-2.8); Alkaline Phosphatase 63 U/L (38-126); Aspartate Aminotransferase 42 IU/L (17-59); BUN Creatinine Ratio 15.6 (6-22); Bilirubin Total 1.5 mg/dL (0.2-1.3); Blood Urea Nitrogen 20 mg/dL (9-20); Calcium 9.4 mg/dL (8.4-10.2); Carbon Dioxide 30 mmol/L (22-32); Chloride 104 mmol/L (98-107); Estimated Glomerular Filt Rate 55.9 mL/min (>60); Glucose 83 mg/dL (80-110); HEMOLYSIS < 15 (0-50); Lactate Dehydrogenase 461 U/L (313-618); Magnesium 2.3 mg/dL (1.6-2.3); Potassium 4.3 mmol/L (3.4-5.1); Sodium 139 mmol/L (137-145); Total Protein 7.4 g/dL (6.3-8.2)
[2020-02-11 13:33] LABS: Anisocytosis 1+; Macrocytosis 3+; Poikilocytosis 1+
== END ==
PROVIDERS: PCP Family Medicine; Referring Provider Internal Medicine Hematology & Oncology; Visit Provider Internal Medicine Hematology & Oncology
DX: D45 Polycythemia vera (principal); Z92.21 Personal history of antineoplastic chemotherapy; Z95.3 Presence of xenogenic heart valve; Z90.6 Acquired absence of other parts of urinary tract; Z85.51 Personal history of malignant neoplasm of bladder
CPT/HCPCS: 36415; 80053; 82248; 83615; 83735; 85025

== ENCOUNTER 2020-07-27 15:39 | Inpatient (IN) | payer MEDICARE, OTHER, SELFPAY ==
[2020-07-27] VITALS (17 sets, daily range): BP systolic 151–216; BP diastolic 84–120; PULSE 65–110; RESP 18–50; TEMP 36.1–38.4; O2SAT 88–100; BMI 25.1; BMI 25.3
--- NOTE | 2020-07-27 | DI.RAD.S_ITS ---
PROCEDURE: XR CHEST 1V INDICATIONS: NG TUBE PLACEMENT TECHNIQUE: One view of the chest was acquired. COMPARISON: [facility], CHEST 1 VIEW, 05/02/2015, 6:23. [facility], CHEST 2 VIEW, 03/15/2015, 10:44. FINDINGS: Surgical changes and devices: Enteric tube coursing into the stomach. Tip terminates in the proximal stomach. Lungs and pleura: Lungs appear clear. Left costophrenic angle is not included in the field of view. No pleural effusions or pneumothorax. Mediastinum: Mediastinal contours appear normal. Heart size is normal. Bones and chest wall: No suspicious bony lesions. Overlying soft tissues appear unremarkable. IMPRESSION: Enteric tube tip terminates in the proximal stomach. Dictated by: Rush Talamantes M.D. on 07/27/2020 at 21:32 Approved by: Rush Talamantes M.D. on 07/27/2020 at 21:34
[2020-07-27 16:21] LABS: Add Manual Diff / Slide Review NO; Basophils Absolute Auto 0 /uL (0-100); Basophils Percent Auto 0.1 % (0-2); Eosinophils Absolute Auto 0 /uL (0-450); Hematocrit 48.3 % (41-53); Hemoglobin 16.7 g/dL (13.5-17.5); Lymphocytes Absolute Auto 600 /uL (1100-4500); Lymphocytes Percent Auto 6.3 % (25-40); Mean Corpuscular HGB Conc 34.7 % (30-36); Mean Corpuscular Hemoglobin 42.5 PG (26-34); Mean Corpuscular Volume 122.5 fL (80-100); Monocytes Absolute Auto 400 /uL (0-900); Monocytes Percent Auto 4.7 % (3-14); Neutrophils Absolute Auto 8400 /uL (1500-7000); Neutrophils Percent Auto 88.9 % (50-75); Platelet Count 250 X10^3/uL (150-400); Red Blood Cell Count 3.94 X10^6/uL (4.5-5.9); Red Cell Distribution Width 14.4 % (11.6-14.8); White Blood Cell Count 9.4 X10^3/uL (4.5-11.0)
[2020-07-27 16:30] LABS: Prothrombin Time 11.9 SECONDS (10.1-12.7)
[2020-07-27 16:33] LABS: PTT Partial Thromboplastin Tim 31 SECONDS (26.4-36.2)
[2020-07-27 16:35] LABS: Alanine Aminotransferase 25 IU/L (<50); Albumin 4.8 g/dL (3.5-5.0); Albumin Globulin Ratio 1.3 (1.0-2.8); Alkaline Phosphatase 76 U/L (38-126); Aspartate Aminotransferase 40 IU/L (17-59); BUN Creatinine Ratio 16.1 (6-22); Bilirubin Total 2.6 mg/dL (0.2-1.3); Blood Urea Nitrogen 23 mg/dL (9-20); Calcium 9.8 mg/dL (8.4-10.2); Carbon Dioxide 33 mmol/L (22-32); Chloride 101 mmol/L (98-107); Estimated Glomerular Filt Rate 49.2 mL/min (>60); Globulin 3.7 g/dL (1.7-4.1); Glucose 166 mg/dL (80-110); HEMOLYSIS < 15 (0-50); Lipase 48 U/L (23-300); Potassium 3.9 mmol/L (3.4-5.1); Sodium 139 mmol/L (137-145); Total Protein 8.5 g/dL (6.3-8.2)
[2020-07-27 16:36] LABS: Macrocytosis 3+
--- NOTE | 2020-07-27 17:52 | DI.CT.S_ITS ---
PROCEDURE: CT ABDOMEN PELVIS W CON INDICATIONS: vomiting, no BM x 2 days, no flatus, hx urostomy TECHNIQUE: After the administration of intravenous contrast, 5 mm thick sections acquired from the diaphragm to the symphysis. 5 mm coronal and sagittal reformats were acquired. For radiation dose reduction, the following was used: automated exposure control, adjustment of mA and/or kV according to patient size. COMPARISON: CT abdomen pelvis 07/08/2017. FINDINGS: Image quality: Excellent. ABDOMEN: Lung bases: Mild patchy opacity in the right middle lobe. No pleural effusion. Heart size is normal. Solid organs: Liver is normal in size and enhancement. Gallbladder is not distended. Small gallstone. Biliary system is non dilated. Pancreas enhances normally. Spleen is normal in size and enhancement. No adrenal nodules. Kidneys demonstrate normal size and enhancement, without hydronephrosis. A few small cortical hypodensities which are too small to further characterize. Peritoneum and bowel: Stomach is mildly distended. Small bowel obstruction. Concern for closed loop obstruction in the midline pelvis, (2/58). The mesentery is swirled at this site which is new compared to 2017. Suture material at the terminal ileum. Mild stool in the right colon. Right ureterostomy. Nodes and vessels: No retroperitoneal or mesenteric adenopathy by size criteria. Aorta and inferior vena cava are normal in size. Miscellaneous: No ventral hernias. PELVIS: Genitourinary: Bladder is absent. Hydrocele partially visualized. Miscellaneous: Question of fat containing right inguinal hernia. No adenopathy. Bones: No suspicious bony lesions. No vertebral body compression fractures. IMPRESSION: 1. High-grade small bowel obstruction. New swirling in the mesentery in the pelvis suspicious for closed loop obstruction. 2. Right lower quadrant ureterostomy. No hydronephrosis. 3. Mild patchy ground-glass opacity in the right middle lobe. This could be due to early pneumonia or aspiration. No effusion. Additional findings: Gallstone Hydrocele Dictated by: Rush Talamantes M.D. on 07/27/2020 at 19:13 Approved by: Rush Talamantes M.D. on 07/27/2020 at 19:29
[2020-07-27 17:55] LABS: Amorphous Sediment Urine 1+; RBC Urine 5-10/HPF (0-5/HPF); Squamous Epithelial Cell Urine 1-5 /HPF (0-5/HPF); Triple Phosphate Crystal Urine Moderate; WBC Urine 5-10/HPF (0-5/HPF)
[2020-07-27 17:56] LABS: Bacteria Urine Moderate (10-30); Culture Indicated Urine Specimen Cultured; Mucus Urine 1+ (Negative)
--- NOTE | 2020-07-27 18:09 | ED.ABDPAIN ---
HPI - Abdominal Pain General Chief Complaint: Abdominal Pain Stated Complaint: NON STOP VOMITING ABD PAIN SWEATING Time Seen by Provider: 07/27/20 17:03 Source: patient Mode of arrival: Family Vehicle Limitations: no limitations History of Present Illness HPI narrative: 69-year-old male comes to the emergency department with complaint of abdominal pain left lower quadrant. Patient states had intermittently over the last couple weeks to months but starting yesterday started having vomiting and has not been able to keep down any fluids. He has not had fevers that he is aware of but has felt chilled and has had sweating intermittently. He has not had a bowel movement at least 24-48 and has not been cathing gas or flatus regularly. He does get chills and sweats when he vomits. He denies any chest, no shortness of breath no cough cold or congestion. He does have a urostomy he has had urine output but in decreased recently. his urostomy is on the right side. Patient takes duloxetine for mood and hydroxyurea for polycythemia vera. He denies any prior surgeries besides bladder surgery and urostomy for bladder cancer. Related Data Home Medications Medication Instructions Recorded Confirmed [D-MANNOSE] 500 mg PO Q DAY #30 mg 09/02/17 07/27/20 hydroxyurea 500 mg PO BID 04/15/18 07/27/20 duloxetine 30 mg PO DAILY 07/27/20 07/27/20 Allergies Allergy/AdvReac Type Severity Reaction Status Date / Time Sulfa (Sulfonamide Allergy Intermediate RASH Verified 07/27/20 15:58 Antibiotics) (DON'T [SULFA (SULFONAMIDE KNOW IF IT ANTIBIOTICS)] WAS THIS OR THE PYRIDIUM) phenazopyridine AdvReac Intermediate RASH Verified 07/27/20 15:58 [From PYRIDIUM] (UNSURE IF IT WAS THIS OR THE SULFA) Review of Systems Review of Systems ROS Unobtainable: All systems reviewed & are unremarkable except as noted in HPI and below Patient History Medical History (Updated 07/29/20 @ 09:54 by Juan Silva MD) Chronic renal failure, stage 2 (mild) Depression (09/02/17) Erectile dysfunction after radical cystectomy (08/06/17) H/O prostate cancer History of malignant neoplasm of bladder (08/06/17) 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 Polycythemia vera Surgical History (Updated 07/29/20 @ 09:54 by Juan Silva MD) History of urostomy History of vasectomy S/P ileal conduit (~08/2015) Family History Brother Age: 71 Diabetes mellitus Hypertension PTSD (post-traumatic stress disorder) Father Age: 89 Obese Vertigo Prostate cancer Hypertension History of radical prostatectomy Mother Age: 88 Breast cancer Hypertension Mental health problem S/P breast lumpectomy Grandmother Heart disease Hypertension Sister Age: 65 Pulmonary hypertension Social History household members: spouse Smoking Status: Never smoker Smoking Status: Never smoker alcohol intake frequency: holidays/special occasions only Alcohol type: beer Substance Use Type: does not use Exam Narrative Exam Narrative: GENERAL: Alert and oriented x three, well-nourished, well-appearing male in mild distress. HEENT: Head normocephalic, atraumatic, EOMI, pupils reactive, face symmetric, moist mucous membranes NECK: Supple, full range of motion CARDIOVASCULAR: Regular rate and rhythm without murmurs, rubs or gallops. RESPIRATORY: Breath sounds equal bilaterally, no wheezes rales or rhonchi. ABDOMEN: Soft, nontender to palpation. Normoactive bowel sounds all 4 quadrants. No guarding or rebound, rigidity, no mass. Urostomy is present on the right. : No CVA tenderness EXTREMITIES: Normal range of motion, no clubbing or edema. Neurovascularly intact NEUROLOGICAL: Cranial nerves II through XII grossly intact. Moving all extremities SKIN: Warm, dry, no petechiae, no rashes or lesions. Initial Vital Signs Initial Vital Signs: Vital Signs Temperature 96.9 F L 07/27/20 15:48 Pulse Rate 94 H 07/27/20 15:48 Respiratory Rate 18 07/27/20 15:48 Blood Pressure 151/87 H 07/27/20 15:48 Pulse Oximetry 99 07/27/20 15:48 Course Orders Ordered: Discontinued Medications Acetaminophen (Acetaminophen 325 Mg Tablet) 650 mg PO Q6HR PRN PRN Reason: Fever/Mild Pain (1-3) Last Admin: 07/28/20 00:42 Dose: 650 mg Documented by: JENNYFER Acetaminophen (Acetaminophen Susp 650 Mg/20.3 Ml Udc) 650 mg PO Q6HR PRN PRN Reason: Fever/Mild Pain (1-3) Last Admin: 07/29/20 07:26 Dose: 650 mg Documented by: Admin: 07/28/20 17:43 Dose: 650 mg Documented by: JUDI Benzocaine (Dermoplast [place] 20% 60 Ml) 1 spray TOP Q1HR PRN PRN Reason: Pain, Moderate (4-6) Benzocaine/Butamben/Tetracaine HCl (Tetracaine/Benzocaine/Butamben (Cetacaine) Bottle) 1 spray TOP PRN PRN PRN Reason: Sore Throat Last Admin: 07/28/20 09:29 Dose: 1 spray Documented by: JAMARI Enoxaparin Sodium (Enoxaparin 40 Mg/0.4 Ml Syringe) 40 mg SUBCUT DAILY [facility] Last Admin: 07/29/20 09:14 Dose: 40 mg Documented by: Admin: 07/28/20 10:21 Dose: 40 mg Documented by: JAMARI Sodium Chloride (Normal Saline 0.9%) 1,000 mls @ 1,000 mls/hr IV BOLUS ONE Stop: 07/27/20 18:51 Last Infusion: 07/27/20 19:57 Dose: 0 mls/hr Documented by: Admin: 07/27/20 18:31 Dose: 1,000 mls/hr Documented by: WAGNER Ceftriaxone Sodium/Dextrose (Rocephin) 1 gm in 50 mls @ 100 mls/hr IV NOW ONE Stop: 07/27/20 18:45 Last Infusion: 07/27/20 19:39 Dose: 0 mls/hr Documented by: Admin: 07/27/20 18:45 Dose: 100 mls/hr Documented by: WAGNER Sodium Chloride (Normal Saline 0.9%) 1,000 mls @ 125 mls/hr IV CONT SAMMY Last Admin: 07/29/20 11:10 Dose: 125 mls/hr Documented by: Infusion: 07/29/20 10:24 Dose: 125 mls/hr Documented by: Admin: 07/29/20 02:24 Dose: 125 mls/hr Documented by: Infusion: 07/29/20 01:43 Dose: 125 mls/hr Documented by: Admin: 07/28/20 17:43 Dose: 125 mls/hr Documented by: Infusion: 07/28/20 17:34 Dose: 125 mls/hr Documented by: Admin: 07/28/20 09:34 Dose: 125 mls/hr Documented by: Infusion: 07/28/20 08:06 Dose: 125 mls/hr Documented by: Admin: 07/28/20 00:06 Dose: 125 mls/hr Documented by: JENNYFER Ceftriaxone Sodium/Dextrose (Rocephin) 2 gm in 50 mls @ 100 mls/hr IV Q12H [facility] Stop: 08/04/20 05:00 Last Infusion: 07/29/20 13:54 Dose: 0 mls/hr Documented by: Admin: 07/29/20 09:14 Dose: 100 mls/hr Documented by: Infusion: 07/28/20 21:57 Dose: 100 mls/hr Documented by: Admin: 07/28/20 20:48 Dose: 100 mls/hr Documented by: Infusion: 07/28/20 11:55 Dose: 0 mls/hr Documented by: Admin: 07/28/20 10:21 Dose: 100 mls/hr Documented by: JAMARI Levofloxacin (Levaquin) 500 mg in 100 mls @ 100 mls/hr IV Q24H [facility] Last Infusion: 07/29/20 13:54 Dose: 0 mls/hr Documented by: Admin: 07/29/20 11:10 Dose: 100 mls/hr Documented by: IRENE Morphine Sulfate (Morphine 2 Mg/Ml Inj) 2 mg IV Q4HR PRN PRN Reason: Pain, Moderate (4-6) Last Admin: 07/28/20 09:30 Dose: 2 mg Documented by: Admin: 07/28/20 05:44 Dose: 2 mg Documented by: JENNYFER Morphine Sulfate (Morphine 2 Mg/Ml Inj) 2 mg IV Q4HR PRN PRN Reason: Pain, Moderate (4-6) Naloxone HCl (Naloxone 0.4 Mg/Ml Vial) 0.2 mg IV Q2MIN PRN PRN Reason: Opiate Reversal Naloxone HCl (Naloxone 0.4 Mg/Ml Vial) 0.2 mg IV Q2MIN PRN PRN Reason: Opiate Reversal Stored In Pharmacy 1 each PO PRN PRN PRN Reason: PER PROTOCOL Ondansetron HCl (Ondansetron 4 Mg/2 Ml Inj) 4 mg IV NOW ONE Stop: 07/27/20 17:53 Last Admin: 07/27/20 18:33 Dose: 4 mg Documented by: WAGNER Ondansetron HCl (Ondansetron 4 Mg/2 Ml Inj) 4 mg IV Q8HR PRN PRN Reason: Nausea And Vomiting Last Admin: 07/28/20 09:12 Dose: 4 mg Documented by: JAMARI Ondansetron HCl (Ondansetron 4 Mg/2 Ml Inj) 4 mg IV Q4HR PRN PRN Reason: Nausea And Vomiting Last Admin: 07/29/20 07:36 Dose: 4 mg Documented by: Admin: 07/28/20 21:57 Dose: 4 mg Documented by: Admin: 07/28/20 14:24 Dose: 4 mg Documented by: JAMARI Sodium Chloride (Sodium Chloride 0.9% Flush) 10 ml IV PRN PRN PRN Reason: Flush Consultations Consultation #1: Dr. Faulkner, evaluated patient in department and feels appropriate to keep for SBO with bowel rest, NGT, fluids and pain control. Asks that we admit to hospital team and monitor mag, phos and k. Time: 19:31 Consultation #2: John Paul accepts Time: 20:20 Vital Signs Vital signs: Vital Signs - 8 hr 07/27/20 15:48 07/27/20 16:35 07/27/20 16:36 Temperature 96.9 F L Pulse Rate 94 H 79 78 Respiratory Rate 18 Blood Pressure 151/87 H 158/84 H Pulse Oximetry 99 93 98 07/27/20 17:00 07/27/20 17:30 07/27/20 18:13 Temperature Pulse Rate 65 81 75 Respiratory Rate 46 H 50 H Blood Pressure 174/94 H 164/97 H Pulse Oximetry 98 98 88 L 07/27/20 18:14 07/27/20 18:30 07/27/20 18:36 Temperature Pulse Rate 77 77 75 Respiratory Rate Blood Pressure 160/86 H 162/89 H Pulse Oximetry 96 96 98 07/27/20 19:00 Temperature Pulse Rate 73 Respiratory Rate Blood Pressure 163/87 H Pulse Oximetry 99 MDM - Abdominal Pain Lab Data Attestation: I reviewed the patient's lab results. Lab results narrative: CBC is normal, the BMP shows elevation of creatinine from the normal baseline. Total bilirubin is elevated at 2.6, with otherwise normal LFTs. Urine shows nitrates and leukocyte esterase. Result diagrams: 07/29/20 04:59 07/29/20 04:59 Labs: Lab Results 07/27/20 07/27/20 07/27/20 Range/Units 16:10 16:10 16:10 WBC 9.4 (4.5-11.0) X10^3/uL RBC 3.94 L (4.5-5.9) X10^6/uL Hgb 16.7 (13.5-17.5) g/dL Hct 48.3 (41-53) % MCV 122.5 H (80-100) fL MCH 42.5 H (26-34) PG MCHC 34.7 (30-36) % RDW 14.4 (11.6-14.8) % Plt Count 250 (150-400) X10^3/uL Neut % (Auto) 88.9 H (50-75) % Lymph % (Auto) 6.3 L (25-40) % [place] % (Auto) 4.7 (3-14) % Eos % (Auto) 0.0 L (2-4) % Baso % (Auto) 0.1 (0-2) % Neut # (Auto) 8400 H (0621-4096) /uL Lymph # (Auto) 600 L (6131-0382) /uL [place] # (Auto) 400 (0-900) /uL Eos # (Auto) 0 (0-450) /uL Baso # (Auto) 0 (0-100) /uL RBC Morphology Not Reportable Macrocytosis 3+ H PT 11.9 (10.1-12.7) SECONDS INR 1.0 (0.9-1.3) APTT 31 (26.4-36.2) SECONDS Sodium 139 (137-145) mmol/L Potassium 3.9 (3.4-5.1) mmol/L Chloride 101 (98-107) mmol/L Carbon Dioxide 33 H (22-32) mmol/L BUN 23 H (9-20) mg/dL Creatinine 1.43 H (0.66-1.25) mg/dL Estimated GFR 49.2 L (>60) mL/min BUN/Creatinine Ratio 16.1 (6-22) Glucose 166 H (80-110) mg/dL Calcium 9.8 (8.4-10.2) mg/dL Phosphorus (2.3-3.7) mg/dL Magnesium (1.6-2.3) mg/dL Total Bilirubin 2.6 H (0.2-1.3) mg/dL AST 40 (17-59) IU/L ALT 25 (<50) IU/L Alkaline Phosphatase 76 (38-126) U/L Total Protein 8.5 H (6.3-8.2) g/dL Albumin 4.8 (3.5-5.0) g/dL Globulin 3.7 (1.7-4.1) g/dL Albumin/Globulin Ratio 1.3 (1.0-2.8) Lipase 48 (23-300) U/L Urine RBC (0-5/HPF) Urine WBC (0-5/HPF) Ur Squamous Epith Cells (0-5/HPF) Triple Phos Crystals Amorphous Sediment Urine Bacteria (None) Urine Mucus (Negative) Ur Culture Indicated? COVID-19 PCR (Negative) 07/27/20 07/27/20 07/27/20 Range/Units 16:10 17:41 20:24 WBC (4.5-11.0) X10^3/uL RBC (4.5-5.9) X10^6/uL Hgb (13.5-17.5) g/dL Hct (41-53) % MCV (80-100) fL MCH (26-34) PG MCHC (30-36) % RDW (11.6-14.8) % Plt Count (150-400) X10^3/uL Neut % (Auto) (50-75) % Lymph % (Auto) (25-40) % [place] % (Auto) (3-14) % Eos % (Auto) (2-4) % Baso % (Auto) (0-2) % Neut # (Auto) (1792-6475) /uL Lymph # (Auto) (3315-8155) /uL [place] # (Auto) (0-900) /uL Eos # (Auto) (0-450) /uL Baso # (Auto) (0-100) /uL RBC Morphology Macrocytosis PT (10.1-12.7) SECONDS INR (0.9-1.3) APTT (26.4-36.2) SECONDS Sodium (137-145) mmol/L Potassium (3.4-5.1) mmol/L Chloride (98-107) mmol/L Carbon Dioxide (22-32) mmol/L BUN (9-20) mg/dL Creatinine (0.66-1.25) mg/dL Estimated GFR (>60) mL/min BUN/Creatinine Ratio (6-22) Glucose (80-110) mg/dL Calcium (8.4-10.2) mg/dL Phosphorus 4.3 H (2.3-3.7) mg/dL Magnesium 2.2 (1.6-2.3) mg/dL Total Bilirubin (0.2-1.3) mg/dL AST (17-59) IU/L ALT (<50) IU/L Alkaline Phosphatase (38-126) U/L Total Protein (6.3-8.2) g/dL Albumin (3.5-5.0) g/dL Globulin (1.7-4.1) g/dL Albumin/Globulin Ratio (1.0-2.8) Lipase (23-300) U/L Urine RBC 5-10/hpf H (0-5/HPF) Urine WBC 5-10/hpf H (0-5/HPF) Ur Squamous Epith Cells 1-5 /hpf (0-5/HPF) Triple Phos Crystals Moderate Amorphous Sediment 1+ Urine Bacteria Moderate (10-30) H (None) Urine Mucus 1+ H (Negative) Ur Culture Indicated? Specimen cultured COVID-19 PCR Negative (Negative) Point of care testing: Urine Dip Bedside Urine Glucose Negative Bedside Urine Bilirubin - Negative Bedside Urine Ketone + 15 Urine Specific [place] 1.005 Bedside Urine Occult Blood +++ Bedside Urine pH 8.5 Bedside Urine Protein +++ 300 Bedside Urine Urobilinogen - Negative Bedside Urine Nitrite + Positive Bedside Urine Leukocytes + [address] scan - abdomen/pelvis: Radiologist's Impression: Demetrio Donovan 69 M [address] [id number] Scan ReportSigned Patient: Demetrio Donovan LMR#: [id number]: 1950cct:[id number]/Sex: 69 / MDate of Service: 07/27/20Loc: EDAccession Number: [id number] Procedure: CT abdomen pelvis w con Ordering Provider: Anna El D.O. PROCEDURE: CT ABDOMEN PELVIS W CON INDICATIONS: vomiting, no BM x 2 days, no flatus, hx urostomy TECHNIQUE: After the administration of intravenous contrast, 5 mm thick sections acquired from the diaphragm to the symphysis. 5 mm coronal and sagittal reformats were acquired. For radiation dose reduction, the following was used: automated exposure control, adjustment of mA and/or kV according to patient size. COMPARISON: CT abdomen pelvis 07/08/2017. FINDINGS: Image quality: Excellent. ABDOMEN: Lung bases: Mild patchy opacity in the right middle lobe. No pleural effusion. Heart size is normal. Solid organs: Liver is normal in size and enhancement. Gallbladder is not distended. Small gallstone. Biliary system is non dilated. Pancreas enhances normally. Spleen is normal in size and enhancement. No adrenal nodules. Kidneys demonstrate normal size and enhancement, without hydronephrosis. A few small cortical hypodensities which are too small to further characterize. Peritoneum and bowel: Stomach is mildly distended. Small bowel obstruction. Concern for closed loop obstruction in the midline pelvis, (2). The mesentery is swirled at this site which is new compared to 2017. Suture material at the terminal ileum. Mild stool in the right colon. Right ureterostomy. Nodes and vessels: No retroperitoneal or mesenteric adenopathy by size criteria. Aorta and inferior vena cava are normal in size. Miscellaneous: No ventral hernias. PELVIS: Genitourinary: Bladder is absent. Hydrocele partially visualized. Miscellaneous: Question of fat containing right inguinal hernia. No adenopathy. Bones: No suspicious bony lesions. No vertebral body compression fractures. IMPRESSION: 1. High-grade small bowel obstruction. New swirling in the mesentery in the pelvis suspicious for closed loop obstruction. 2. Right lower quadrant ureterostomy. No hydronephrosis. 3. Mild patchy ground-glass opacity in the right middle lobe. This could be due to early pneumonia or aspiration. No effusion. Additional findings: Gallstone Hydrocele Dictated by: Rush Talamantes M.D. on 07/27/2020 at 19:13 Approved by: Rush Talamantes M.D. on 07/27/2020 at 19:29 ECG Data Attestation: I personally reviewed and interpreted this ECG as follows: Interpretation: NSR, rate 85, pr 152, qrs 96, qtc 419. No ST changes appreciated. MDM Narrative Medical decision making narrative: 69 year old male with signs and symptoms of small-bowel obstruction. Patient has a prior urostomy secondary to bladder cancer. Patient's urinalysis does show nitrates, with his urostomy this may be colonization but will start initial treatment at this time Patient's imaging does show small bowel obstruction. This was discussed with General surgery as patient does have a urostomy and if required surgery might need transfer. Dr. Faulkner evaluated patient and feels comfortable having the patient admitted here at this time to the medicine service for conservative management, NG tube, fluids and pain control and will continue to follow the patient. Spoke with who accepts for admission. Discharge Plan Departure Patient Disposition: Admitted As Inpatient Clinical Impression: UTI (urinary tract infection), Small bowel obstruction, History of urostomy Admit Date/Time: 07/27/20 20:26 Admit Provider: Aura Coker
[2020-07-27] MEDS: SODIUM CHLORIDE 0.9% 1,000 ML 1000 ML IV (18:31)
[2020-07-27] MEDS: ONDANSETRON 4 MG/2 ML INJ IV (18:33)
[2020-07-27] MEDS: CEFTRIAXONE 1 GM/50 ML FROZ.PIGGY IV (18:45)
[2020-07-27 20:26] LABS: Magnesium 2.2 mg/dL (1.6-2.3); Phosphorous 4.3 mg/dL (2.3-3.7)
--- NOTE | 2020-07-27 20:46 | PM.CN ---
History of Present Illness Consult details Date Patient Seen: 07/27/20 Chief complaint: NON STOP VOMITING ABD PAIN SWEATING LT KENNEDY Burgess Reason for consult: Small-bowel obstruction Narrative: Patient is a 69 year old male with history of bladder cancer status post cystectomy, with urostomy, with history of chemotherapy. He presented with 24 hours history of left lower quadrant and lower abdominal pain followed by multiple vomiting and not being able to keep liquids down. This never happened before. No previous history of recurring partial small bowel obstruction, even though he has been having intermittent left lower quadrant abdominal pain for the past several months, which he addressed with his surgeon on his follow-up visit 2 weeks ago. He was just seen by his primary surgeon [address] weeks [address] with surveillance CT of the abdomen and pelvis which was normal, with no sign of tumor recurrence. He thought that he was probably eating too much food during gi. Currently his lower abdominal pain has improved some compared to yesterday because he had vomited since. No sign of metabolic acidosis. No leukocytosis. Not toxic in appearance. Not tachycardic. CT of the abdomen and pelvis only with IV contrast showed a dilated stomach with a very dilated small bowel proximally with normal caliber or collapsed distal small bowel. No wall thickening of the bowel. No free fluid. No free air. No pneumatosis. Imaging appears to be small-bowel obstruction. Meds Home Medications and Allergies Home Medications Medication Instructions Recorded Confirmed Type [D-MANNOSE] 500 mg PO Q DAY #30 mg 09/02/17 07/27/20 History hydroxyurea 500 mg PO BID 04/15/18 07/27/20 History duloxetine 30 mg PO DAILY 07/27/20 07/27/20 History Allergies Allergy/AdvReac Type Severity Reaction Status Date / Time Sulfa (Sulfonamide Allergy Intermediate RASH Verified 07/27/20 15:58 Antibiotics) (DON'T [SULFA (SULFONAMIDE KNOW IF IT ANTIBIOTICS)] WAS THIS OR THE PYRIDIUM) phenazopyridine AdvReac Intermediate RASH Verified 07/27/20 15:58 [From PYRIDIUM] (UNSURE IF IT WAS THIS OR THE SULFA) Review of Systems Review of Systems Narrative: Patient was having multiple vomiting started approximately 24 hours ago last evening, no bowel movement for past 2-3 days, but denies baseline history of constipation, no diarrhea, no blood per rectum, he was also having lower abdominal pain, reported having slight decrease in urine output per urostomy, but denies back pain, fever, chills, chest pain, shortness of breath. ROS: Yes All systems reviewed with the patient and are negative except as otherwise documented Exam Vital Signs (past 8 hours): - 07/27/20 15:48 07/27/20 16:35 07/27/20 16:36 Temperature 96.9 F L Pulse Rate 94 H 79 78 Respiratory Rate 18 Blood Pressure 151/87 H 158/84 H Pulse Oximetry 99 93 98 07/27/20 17:00 07/27/20 17:30 07/27/20 18:13 Temperature Pulse Rate 65 81 75 Respiratory Rate 46 H 50 H Blood Pressure 174/94 H 164/97 H Pulse Oximetry 98 98 88 L 07/27/20 18:14 07/27/20 18:30 07/27/20 18:36 Temperature Pulse Rate 77 77 75 Respiratory Rate Blood Pressure 160/86 H 162/89 H Pulse Oximetry 96 96 98 07/27/20 19:00 Temperature Pulse Rate 73 Respiratory Rate Blood Pressure 163/87 H Pulse Oximetry 99 Oxygen Delivery Method Room Air Narrative Exam Narrative: Not in ditress, comfortable appearing, his at bedside, not toxic appearing Abdomen without guarding, not distended, soft, mildly tender in LLQ abd, nontender overall, no rebound tenderness, no appreciable masses or hernia, RLQ urostomy stoma noted, soft CTAB no increased work of breathing, not tachypneic, no wheezing RRR no murmur Intact motor and sensory strength, range of motion, no focal neurological deficit No jaundice, erythema, purpura, no rash No lower extremity edema Palpable peripheral pulses Objective Labs Result Diagrams: 07/28/20 05:25 07/28/20 05:25 Labs: Laboratory Results - last 24 hr 07/27/20 07/27/20 07/27/20 16:10 16:10 16:10 WBC 9.4 RBC 3.94 L Hgb 16.7 Hct 48.3 MCV 122.5 H MCH 42.5 H MCHC 34.7 RDW 14.4 Plt Count 250 Neut % (Auto) 88.9 H Lymph % (Auto) 6.3 L [place] % (Auto) 4.7 Eos % (Auto) 0.0 L Baso % (Auto) 0.1 Neut # (Auto) 8400 H Lymph # (Auto) 600 L [place] # (Auto) 400 Eos # (Auto) 0 Baso # (Auto) 0 RBC Morphology Not Reportable Macrocytosis 3+ H PT 11.9 INR 1.0 APTT 31 Sodium 139 Potassium 3.9 Chloride 101 Carbon Dioxide 33 H BUN 23 H Creatinine 1.43 H Estimated GFR 49.2 L BUN/Creatinine Ratio 16.1 Glucose 166 H Calcium 9.8 Phosphorus Magnesium Total Bilirubin 2.6 H AST 40 ALT 25 Alkaline Phosphatase 76 Total Protein 8.5 H Albumin 4.8 Globulin 3.7 Albumin/Globulin Ratio 1.3 Lipase 48 Urine RBC Urine WBC Ur Squamous Epith Cells Triple Phos Crystals Amorphous Sediment Urine Bacteria Urine Mucus Ur Culture Indicated? 07/27/20 07/27/20 16:10 17:41 WBC RBC Hgb Hct MCV MCH MCHC RDW Plt Count Neut % (Auto) Lymph % (Auto) [place] % (Auto) Eos % (Auto) Baso % (Auto) Neut # (Auto) Lymph # (Auto) [place] # (Auto) Eos # (Auto) Baso # (Auto) RBC Morphology Macrocytosis PT INR APTT Sodium Potassium Chloride Carbon Dioxide BUN Creatinine Estimated GFR BUN/Creatinine Ratio Glucose Calcium Phosphorus 4.3 H Magnesium 2.2 Total Bilirubin AST ALT Alkaline Phosphatase Total Protein Albumin Globulin Albumin/Globulin Ratio Lipase Urine RBC 5-10/hpf H Urine WBC 5-10/hpf H Ur Squamous Epith Cells 1-5 /hpf Triple Phos Crystals Moderate Amorphous Sediment 1+ Urine Bacteria Moderate (10-30) H Urine Mucus 1+ H Ur Culture Indicated? Specimen cultured Assessment & Plan Assessment & Plan narrative: Adhesive small bowel obstruction, no sign of strangulation or ischemia or intra abdominal sepsis clinically Conservative tx of NGT decompression, NPO, IVF, replete K, Mg, Pi Certainly if refractory, he may need surgical intervention, at which point they communicated with me that they would like to be taken care of by his primary surgeon
[2020-07-27 20:59] LABS: COVID19 -Nasal RAPID Negative (Negative)
--- NOTE | 2020-07-27 22:03 | PC.NURSE ---
Pt to room 224 from E.R. awake, alert, minimally conversant d/t stated discomfort in left nare r/t NG tube. NG tube to low intermittent suction with return of steady flow jaimes colored liquid. Pt states desires big drainage bag for urostomy overnight and this was accomplished using extension tubing from leg bag to connect to castañeda bag. Spouse present, attentive, and involved in pt's care. Awaiting orders from admitting MD.
[2020-07-28] VITALS (10 sets, daily range): BP systolic 157–167; BP diastolic 92–106; PULSE 74–78; RESP 16–18; TEMP 37.2–37.7; O2SAT 96–98
[2020-07-28] MEDS: SODIUM CHLORIDE 0.9% 1,000 ML 125 ML IV ×3 (00:06→17:43)
[2020-07-28] MEDS: ACETAMINOPHEN 325 MG TABLET 650 MG PO (00:42)
--- NOTE | 2020-07-28 03:02 | DI.RAD.S_ITS ---
PROCEDURE: XR CHEST 1V INDICATIONS: NG placement TECHNIQUE: One view of the chest was acquired. Additional view of the lower chest/upper abdomen was performed COMPARISON: Outside Facility, RG, CT ABDOMEN/PELVIS WITH CONTRAST, 07/08/2017, 13:28. [facility], CT, CT ABDOMEN PELVIS W CON, 07/27/2020, 17:56. [facility], CR, XR CHEST 1V, 07/27/2020, 20:45. FINDINGS: Surgical changes and devices: Enteric tube. Is noted with the tip overlying the left upper quadrant over the expected location of the stomach. The side port is just distal to the expected location of the gastroesophageal junction. Lungs and pleura: Lungs are clear. No pleural effusions or pneumothorax. Mediastinum: Mediastinal contours appear normal. Heart size is normal. Bones and chest wall: No suspicious bony lesions or acute osseous abnormality. Overlying soft tissues appear unremarkable. IMPRESSION: Enteric tube with the side port just distal to the expected location of the gastroesophageal junction. Consider advancement. Agree with preliminary report. Dictated by: Carlos Campbell D.O. on 07/28/2020 at 7:29 Approved by: Carlos Campbell D.O. on 07/28/2020 at 7:35
--- NOTE | 2020-07-28 03:28 | PC.NURSE ---
Addendum entered by Reese Sigala R.N. 07/28/20 04:34: Per radiology report, NG needed to be advanced 8cm. NG advanced, stomach contents began to flow through tube immediately after advancement. Consulted didi/Mateo (automation control technician) who noted that LIS could be restarted at this time and a repeat xray was unnecessary. LIS restarted at 0430. Original Note: Pt woke from sleep and pulled his NG out approximately 3 inches. NG was advanced and a CXR showed the tube to be barely in the stomach (per automation control technician). Tube was advanced further, another Xray was taken. LIS is turned off while awaiting confirmation of placement. Pt experienced a great amount of pain while advancing the NG. He stated that initial placement was also very difficult for him. Pt cannot tolerate much movement of his head due to shifting of the NG and the pain it causes.
[2020-07-28] MEDS: MORPHINE 2 MG/ML INJ IV ×2 (05:44→09:30)
[2020-07-28 05:55] LABS: Add Manual Diff / Slide Review NO; Basophils Absolute Auto 0 /uL (0-100); Basophils Percent Auto 0.1 % (0-2); Eosinophils Absolute Auto 0 /uL (0-450); Hematocrit 45.9 % (41-53); Hemoglobin 15.8 g/dL (13.5-17.5); Lymphocytes Absolute Auto 700 /uL (1100-4500); Lymphocytes Percent Auto 6.3 % (25-40); Mean Corpuscular HGB Conc 34.4 % (30-36); Mean Corpuscular Hemoglobin 42.3 PG (26-34); Mean Corpuscular Volume 122.9 fL (80-100); Monocytes Absolute Auto 1000 /uL (0-900); Monocytes Percent Auto 8.9 % (3-14); Neutrophils Absolute Auto 9300 /uL (1500-7000); Neutrophils Percent Auto 84.7 % (50-75); Platelet Count 240 X10^3/uL (150-400); Red Blood Cell Count 3.74 X10^6/uL (4.5-5.9); Red Cell Distribution Width 14.3 % (11.6-14.8)
[2020-07-28 05:57] LABS: Alanine Aminotransferase 21 IU/L (<50); Albumin 4.4 g/dL (3.5-5.0); Albumin Globulin Ratio 1.5 (1.0-2.8); Alkaline Phosphatase 65 U/L (38-126); Aspartate Aminotransferase 32 IU/L (17-59); Bilirubin Total 2.3 mg/dL (0.2-1.3); Blood Urea Nitrogen 21 mg/dL (9-20); Calcium 9.4 mg/dL (8.4-10.2); Carbon Dioxide 32 mmol/L (22-32); Chloride 104 mmol/L (98-107); Estimated Glomerular Filt Rate 54.4 mL/min (>60); Glucose 137 mg/dL (80-110); HEMOLYSIS < 15 (0-50); Sodium 141 mmol/L (137-145); Total Protein 7.4 g/dL (6.3-8.2)
[2020-07-28 06:09] LABS: Macrocytosis 3+
--- NOTE | 2020-07-28 09:08 | PM.PN.1 ---
Subjective Subjective Date Patient Seen: 07/28/20 Time Patient Seen: 08:30 Interval history: After NGT more than 500 ml drained, then 150 ml since, feeling better after NGT decompression, no flatus yet Not tachycardic Exam Vital Signs (past 8 hours): - 07/28/20 01:48 07/28/20 03:58 07/28/20 07:38 Temperature 99.8 F H 99.5 F 98.9 F Pulse Rate 74 Respiratory Rate 16 Blood Pressure 167/101 H Pulse Oximetry 98 Oxygen Delivery Method Room Air Oxygen Flow Rate 0 Narrative Exam Narrative: NAD, very comfortable appearing, ambulating in hallway already CTAB RRR Abd Nondistended soft Nontender Objective Labs Result Diagrams: 07/28/20 05:25 07/28/20 05:25 Labs: Laboratory Results - last 24 hr 07/27/20 07/27/20 07/27/20 16:10 16:10 16:10 WBC 9.4 RBC 3.94 L Hgb 16.7 Hct 48.3 MCV 122.5 H MCH 42.5 H MCHC 34.7 RDW 14.4 Plt Count 250 Neut % (Auto) 88.9 H Lymph % (Auto) 6.3 L [place] % (Auto) 4.7 Eos % (Auto) 0.0 L Baso % (Auto) 0.1 Neut # (Auto) 8400 H Lymph # (Auto) 600 L [place] # (Auto) 400 Eos # (Auto) 0 Baso # (Auto) 0 RBC Morphology Not Reportable Macrocytosis 3+ H PT 11.9 INR 1.0 APTT 31 Sodium 139 Potassium 3.9 Chloride 101 Carbon Dioxide 33 H BUN 23 H Creatinine 1.43 H Estimated GFR 49.2 L BUN/Creatinine Ratio 16.1 Glucose 166 H Calcium 9.8 Phosphorus Magnesium Total Bilirubin 2.6 H AST 40 ALT 25 Alkaline Phosphatase 76 Total Protein 8.5 H Albumin 4.8 Globulin 3.7 Albumin/Globulin Ratio 1.3 Lipase 48 Urine RBC Urine WBC Ur Squamous Epith Cells Triple Phos Crystals Amorphous Sediment Urine Bacteria Urine Mucus Ur Culture Indicated? COVID-19 PCR 07/27/20 07/27/20 07/27/20 16:10 17:41 20:24 WBC RBC Hgb Hct MCV MCH MCHC RDW Plt Count Neut % (Auto) Lymph % (Auto) [place] % (Auto) Eos % (Auto) Baso % (Auto) Neut # (Auto) Lymph # (Auto) [place] # (Auto) Eos # (Auto) Baso # (Auto) RBC Morphology Macrocytosis PT INR APTT Sodium Potassium Chloride Carbon Dioxide BUN Creatinine Estimated GFR BUN/Creatinine Ratio Glucose Calcium Phosphorus 4.3 H Magnesium 2.2 Total Bilirubin AST ALT Alkaline Phosphatase Total Protein Albumin Globulin Albumin/Globulin Ratio Lipase Urine RBC 5-10/hpf H Urine WBC 5-10/hpf H Ur Squamous Epith Cells 1-5 /hpf Triple Phos Crystals Moderate Amorphous Sediment 1+ Urine Bacteria Moderate (10-30) H Urine Mucus 1+ H Ur Culture Indicated? Specimen cultured COVID-19 PCR Negative 07/28/20 07/28/20 05:25 05:25 WBC 11.0 RBC 3.74 L Hgb 15.8 Hct 45.9 MCV 122.9 H MCH 42.3 H MCHC 34.4 RDW 14.3 Plt Count 240 Neut % (Auto) 84.7 H Lymph % (Auto) 6.3 L [place] % (Auto) 8.9 Eos % (Auto) 0.0 L Baso % (Auto) 0.1 Neut # (Auto) 9300 H Lymph # (Auto) 700 L [place] # (Auto) 1000 H Eos # (Auto) 0 Baso # (Auto) 0 RBC Morphology See below Macrocytosis 3+ H PT INR APTT Sodium 141 Potassium 4.0 Chloride 104 Carbon Dioxide 32 BUN 21 H Creatinine 1.31 H Estimated GFR 54.4 L BUN/Creatinine Ratio 16.0 Glucose 137 H Calcium 9.4 Phosphorus Magnesium Total Bilirubin 2.3 H AST 32 ALT 21 Alkaline Phosphatase 65 Total Protein 7.4 Albumin 4.4 Globulin 3.0 Albumin/Globulin Ratio 1.5 Lipase Urine RBC Urine WBC Ur Squamous Epith Cells Triple Phos Crystals Amorphous Sediment Urine Bacteria Urine Mucus Ur Culture Indicated? COVID-19 PCR PFSH Medical History Polycythemia vera Surgical History History of urostomy History of vasectomy Family History Brother Age: 71 Diabetes mellitus Hypertension PTSD (post-traumatic stress disorder) Father Age: 89 Obese Vertigo Prostate cancer Hypertension History of radical prostatectomy Mother Age: 88 Breast cancer Hypertension Mental health problem S/P breast lumpectomy Grandmother Heart disease Hypertension Sister Age: 65 Pulmonary hypertension Social History household members: spouse Smoking Status: Never smoker Assessment & Plan Assessment & Plan narrative: Adhesive small bowel obstruction, clinically does not appear to have high grade SBO, no sign of strangulation or ischemia or intra abdominal sepsis, not worsening, slight improving after NGT Continue conservative tx of NGT decompression, NPO, IVF, replete K, Mg, Pi Certainly if refractory, he may need surgical intervention, at which point they communicated with me that they would like to be taken care of by his primary surgeon
[2020-07-28] MEDS: ONDANSETRON 4 MG/2 ML INJ IV ×3 (09:12→21:57)
--- NOTE | 2020-07-28 09:27 | P.HP_ITS ---
History of Present Illness History of Present Illness Date Patient Seen: 07/28/20 Time Patient Seen: 09:27 Chief complaint: NON STOP VOMITING ABD PAIN SWEATING LT HANF BLUE F Narrative: 69-year-old male normally sees Dr. Hilario Ordonez at [facility] for primary care who presented to the [facility] Emergency Department on 07/27/2020 with nonstop vomiting and abdominal pain. Patient was evaluated found to have a small-bowel obstruction based on imaging and clinical picture. He was evaluated by General surgery and felt like admission to the medicine team with conservative measures including being kept NPO with NG suction etcetera would be most appropriate initially Patient has had multiple abdominal surgeries was never had an issue with bowel obstructions prior to this it appears. Most of his care has occurred in [place] for his various cancers including bladder cancer, status post cystectomy, polycythemia vera, and malignant melanoma. 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 Surgical History History of urostomy History of vasectomy Family & Social History Family History Brother Age: 71 Diabetes mellitus Hypertension PTSD (post-traumatic stress disorder) Father Age: 89 Obese Vertigo Prostate cancer Hypertension History of radical prostatectomy Mother Age: 88 Breast cancer Hypertension Mental health problem S/P breast lumpectomy Grandmother Heart disease Hypertension Sister Age: 65 Pulmonary hypertension Social History: household members spouse Prior Living Arrangements House Safety & Behavioral: Feels Safe in Current Yes Environment Been Physically Hurt or No Threatened By a Person Suicidal Ideation Description None Suicide Plan Description No Plan Tobacco & Substance use: Smoking Status Never smoker alcohol intake frequency holiday/special occasion Substance Use Type does not use Meds Home Medications and Allergies Home Medications Medication Instructions Recorded Confirmed Type [D-MANNOSE] 500 mg PO Q DAY #30 mg 09/02/17 07/27/20 History hydroxyurea 500 mg PO BID 04/15/18 07/27/20 History duloxetine 30 mg PO DAILY 07/27/20 07/27/20 History Allergies Allergy/AdvReac Type Severity Reaction Status Date / Time Sulfa (Sulfonamide Allergy Intermediate RASH Verified 07/27/20 15:58 Antibiotics) (DON'T [SULFA (SULFONAMIDE KNOW IF IT ANTIBIOTICS)] WAS THIS OR THE PYRIDIUM) phenazopyridine AdvReac Intermediate RASH Verified 07/27/20 15:58 [From PYRIDIUM] (UNSURE IF IT WAS THIS OR THE SULFA) Review of Systems Constitutional Constitutional: Denies headache(s), Denies weakness, Denies weight gain and Denies weight loss Eyes Eyes: Denies change in vision, Denies itchy eyes, Denies loss of vision and Denies other visual disturbances ENT Ears, Nose, Mouth, and Throat: No change in voice, No dysphagia, No dizziness, No otalgia, No headache(s), No hoarseness, No lip swelling, No neck pain, No sore throat, No throat swelling and No tongue swelling Cardiovascular Cardiovascular: Denies chest pain, Denies syncope, Denies rapid heart rate, Denies irregular heart rhythm, Denies palpitations, Denies dyspnea, Denies dyspnea on exertion and Denies slow heart rate Respiratory Respiratory: Denies chest congestion, Denies cough, Denies hemoptysis, Denies dyspnea, Denies dyspnea on exertion, Denies stridor and Denies wheezing Gastrointestinal Gastrointestinal: Reports abdominal pain, Reports bloating, Reports change in bowel habits, Reports change in stool character, Denies dysphagia, Reports nausea, Reports vomiting and Denies hematemesis Genitourinary Genitourinary: Denies hematuria Comments: Darkness of urine and odor to urine Musculoskeletal Musculoskeletal: Denies abnormal gait, Denies myalgias, Denies arthralgias, Denies limited range of motion and Denies neck pain Integumentary/Breasts Skin/Breast: Denies bleeding lesions, Denies change in pigmentation, Denies changing lesions, Denies new lesions, Denies rash, Denies skin swelling, Denies sores and Denies jaundice Neurologic Neurologic: Denies abnormal speech, Denies abnormal gait, Denies behavioral changes, Denies confusion, Denies dizziness, Denies syncope, Denies headache(s), Denies loss of vision, Denies memory loss, Denies seizure-like activity, Denies paresthesias and Denies weakness Psychiatric Psychiatric: Denies behavioral changes, Denies change in appetite, Denies confusion, Denies difficulty concentrating, Denies auditory hallucinations, Denies memory loss, Denies mood swings and Denies suicidal ideation Endocrine Endocrine: Denies flushing, Denies polyuria and Denies palpitations Hematologic/Lymphatic Hematologic/Lymphatic: Denies easy bleeding, Denies easy bruising and Denies lymphadenopathy Allergic/Immunologic Allergic/Immunologic: Denies urticaria, Denies itchy eyes, Denies lip swelling, Denies throat swelling, Denies tongue swelling and Denies wheezing Exam Vital Signs (past 8 hours): - 07/28/20 01:48 07/28/20 03:58 07/28/20 07:38 Temperature 99.8 F H 99.5 F 98.9 F Pulse Rate 74 Respiratory Rate 16 Blood Pressure 167/101 H Pulse Oximetry 98 Oxygen Delivery Method Room Air Oxygen Flow Rate 0 Narrative Exam Narrative: Elderly male who looks younger than stated age in no obvious distress lying in hospital bed with an NG tube in place HEENT-unremarkable Neck-no bruits Lungs-good breath sounds clear Heart-regular rate and rhythm no murmur Abdomen-no bowel tones, not distended, no rebound or guarding present Extremities-no cyanosis clubbing or edema Objective Labs Result Diagrams: 07/28/20 05:25 07/28/20 05:25 Labs: Laboratory Results - last 24 hr 07/27/20 07/27/20 07/27/20 16:10 16:10 16:10 WBC 9.4 RBC 3.94 L Hgb 16.7 Hct 48.3 MCV 122.5 H MCH 42.5 H MCHC 34.7 RDW 14.4 Plt Count 250 Neut % (Auto) 88.9 H Lymph % (Auto) 6.3 L [place] % (Auto) 4.7 Eos % (Auto) 0.0 L Baso % (Auto) 0.1 Neut # (Auto) 8400 H Lymph # (Auto) 600 L [place] # (Auto) 400 Eos # (Auto) 0 Baso # (Auto) 0 RBC Morphology Not Reportable Macrocytosis 3+ H PT 11.9 INR 1.0 APTT 31 Sodium 139 Potassium 3.9 Chloride 101 Carbon Dioxide 33 H BUN 23 H Creatinine 1.43 H Estimated GFR 49.2 L BUN/Creatinine Ratio 16.1 Glucose 166 H Calcium 9.8 Phosphorus Magnesium Total Bilirubin 2.6 H AST 40 ALT 25 Alkaline Phosphatase 76 Total Protein 8.5 H Albumin 4.8 Globulin 3.7 Albumin/Globulin Ratio 1.3 Lipase 48 Urine RBC Urine WBC Ur Squamous Epith Cells Triple Phos Crystals Amorphous Sediment Urine Bacteria Urine Mucus Ur Culture Indicated? COVID-19 PCR 07/27/20 07/27/20 07/27/20 16:10 17:41 20:24 WBC RBC Hgb Hct MCV MCH MCHC RDW Plt Count Neut % (Auto) Lymph % (Auto) [place] % (Auto) Eos % (Auto) Baso % (Auto) Neut # (Auto) Lymph # (Auto) [place] # (Auto) Eos # (Auto) Baso # (Auto) RBC Morphology Macrocytosis PT INR APTT Sodium Potassium Chloride Carbon Dioxide BUN Creatinine Estimated GFR BUN/Creatinine Ratio Glucose Calcium Phosphorus 4.3 H Magnesium 2.2 Total Bilirubin AST ALT Alkaline Phosphatase Total Protein Albumin Globulin Albumin/Globulin Ratio Lipase Urine RBC 5-10/hpf H Urine WBC 5-10/hpf H Ur Squamous Epith Cells 1-5 /hpf Triple Phos Crystals Moderate Amorphous Sediment 1+ Urine Bacteria Moderate (10-30) H Urine Mucus 1+ H Ur Culture Indicated? Specimen cultured COVID-19 PCR Negative 07/28/20 07/28/20 05:25 05:25 WBC 11.0 RBC 3.74 L Hgb 15.8 Hct 45.9 MCV 122.9 H MCH 42.3 H MCHC 34.4 RDW 14.3 Plt Count 240 Neut % (Auto) 84.7 H Lymph % (Auto) 6.3 L [place] % (Auto) 8.9 Eos % (Auto) 0.0 L Baso % (Auto) 0.1 Neut # (Auto) 9300 H Lymph # (Auto) 700 L [place] # (Auto) 1000 H Eos # (Auto) 0 Baso # (Auto) 0 RBC Morphology See below Macrocytosis 3+ H PT INR APTT Sodium 141 Potassium 4.0 Chloride 104 Carbon Dioxide 32 BUN 21 H Creatinine 1.31 H Estimated GFR 54.4 L BUN/Creatinine Ratio 16.0 Glucose 137 H Calcium 9.4 Phosphorus Magnesium Total Bilirubin 2.3 H AST 32 ALT 21 Alkaline Phosphatase 65 Total Protein 7.4 Albumin 4.4 Globulin 3.0 Albumin/Globulin Ratio 1.5 Lipase Urine RBC Urine WBC Ur Squamous Epith Cells Triple Phos Crystals Amorphous Sediment Urine Bacteria Urine Mucus Ur Culture Indicated? COVID-19 PCR Assessment & Plan Assessment & Plan narrative: 1. Small-bowel obstruction-continue patient NPO with NG suction and IV fluids to support. Patient be followed by General surgery as well as medicine. Continue to monitor electrolytes etcetera. Patient does request that should surgery be come necessary he would prefer to have this performed at the [facility], where he has had all of his prior surgical interventions performed. (however, it is my understanding that they are limiting surgeries due to the current coronavirus pandemic may not be accepting new patients, discussed this briefly with patient) 2. Chronic renal failure stage 2-patient longstanding mild renal dysfunction likely related to his prior urological issues. Continue to monitor. Do not believe patient is overly volume depleted at this time. Continue with IV fluid while patient is NPO certainly. 3. UTI-patient with urostomy and probably has some level of chronic infection. Patient was given a dose of 3rd generation cephalosporin in the ER. He has been febrile here. Will go ahead and continue with IV antibiotics for now while awaiting culture results. 4. -patient normally on medium low-dose duloxetine. This will have to be held while he is NPO. Resume when able to resume oral feeding 5. Polycythemia-patient on hydroxyurea due to this condition. This will also need to be held while patient is NPO. His current CBC is fairly unremarkable for him. Marked macrocytosis persists but hemoglobin hematocrit acceptable. 6. Code status-patient has requested full code status t in the event of a sudden cardiac or respiratory arrest. Seems unlikely to happen but certainly appropriate 7. VTE prophylaxis-with low-dose low molecular weight heparin at this time. Patient clearly deserves inpatient hospitalization given his bowel obstruction etcetera. He will be in the hospital greater than 48 hours that includes 2 separate midnights.
[2020-07-28] MEDS: TETRACAINE/BENZOCAINE/BUTAMBEN (CETACAINE) BOTTLE 1 SPRAY TOP (09:29)
[2020-07-28] MEDS: ENOXAPARIN 40 MG/0.4 ML SYRINGE SUBCUT (10:21)
[2020-07-28] MEDS: CEFTRIAXONE 2 GM/50 ML FROZ.PIGGY IV ×2 (10:21→20:48)
--- NOTE | 2020-07-28 15:31 | CM.DANOTE ---
DCP Assessment: EMR reviewed: Patient is a 69 yr old male who was admitted for SBO- PCP is Dr Ordonez. Cm/RN met with patient at the bedside and explained role. Patient was alert and oriented x4 at time of visit. patients was at the bedside. Patient currently has an NG tube placed and states he is feeling a little better. Current treatment plan is to manage SBO with non-surgical treatment, while on ABX for UTI. patient states he is independent at baseline. Currently lives with his Lilly. I: Medicare and [facility] Plan: D/C home with when medically stable. During AM rounds was told that may be a few days. CM department will follow to assist with any new D/C planning needs that may arise. Discharge Planning/Care Management CM Discharge Assessment Start: 07/28/20 15:29 Freq: Status: Active Protocol: Document 07/28/20 15:29 HS (Rec: 07/28/20 15:30 HS [id number]) Discharge Planning Assessment Assigned Heading Repairer Leandra Campos Rn DPOA/Assigned Designee Name Lilly Donovan () Contact Information [phone] Advance Directives? Yes History Provided By Patient,Family Member Has Patient been admitted in last 30 No days? Prior Living Arrangements House Household Members spouse Type of transporation used prior to Drives own vehicle admit Independent with ADL's Yes Is patient alert and oriented? Yes Caregiver for Another No Discharge Plan Home Whiteboard Updated in Patient Room with Yes name and ext. # of Heading Repairer Review Status In Process Next Review Type Continued Stay Review Leandra Campos RN
[2020-07-28] MEDS: ACETAMINOPHEN SUSP 650 MG/20.3 ML UDC PO (17:43)
--- NOTE | 2020-07-28 17:57 | PC.NURSE ---
Addendum entered by Sandy Aguilar R.N. 07/28/20 22:37: Relatively uneventful evening Med w/ tylenol x 1 for H/A w/good relief. Urostomy w/ clear yellow urine. Med w/ zofran for nausea, NG patent. Call light w/in reach, Pt calls appropriately for need Continue w/plan of care, Original Note: Pt watching TV,. Denies discomfort aside from NG irritation. IVF NS @ 125cc/hr via pump infusing into LAC w/o incidence, NG LIS. Temp 99.1, pt requesting tylenol, Urostomy patent clear yellow urine. Call light w/in reach, pt calls appropriately for needs.
[2020-07-29 00:09] VITALS: O2SAT 96
[2020-07-29] MEDS: SODIUM CHLORIDE 0.9% 1,000 ML 125 ML IV ×2 (02:24→11:10)
[2020-07-29 03:00] VITALS: BP 163/92; PULSE 80; RESP 22; O2SAT 96
[2020-07-29 05:39] LABS: Add Manual Diff / Slide Review NO; Basophils Absolute Auto 0 /uL (0-100); Basophils Percent Auto 0.4 % (0-2); Eosinophils Absolute Auto 0 /uL (0-450); Hemoglobin 14.8 g/dL (13.5-17.5); Lymphocytes Absolute Auto 600 /uL (1100-4500); Lymphocytes Percent Auto 9.1 % (25-40); Mean Corpuscular HGB Conc 34.3 % (30-36); Mean Corpuscular Hemoglobin 42.4 PG (26-34); Mean Corpuscular Volume 123.5 fL (80-100); Monocytes Absolute Auto 900 /uL (0-900); Neutrophils Absolute Auto 5500 /uL (1500-7000); Neutrophils Percent Auto 77.5 % (50-75); Platelet Count 217 X10^3/uL (150-400); Red Blood Cell Count 3.48 X10^6/uL (4.5-5.9); Red Cell Distribution Width 14.3 % (11.6-14.8)
[2020-07-29 05:43] LABS: BUN Creatinine Ratio 15.1 (6-22); Blood Urea Nitrogen 18 mg/dL (9-20); Calcium 8.9 mg/dL (8.4-10.2); Carbon Dioxide 29 mmol/L (22-32); Chloride 108 mmol/L (98-107); Estimated Glomerular Filt Rate > 60.0 mL/min (>60); Glucose 120 mg/dL (80-110); HEMOLYSIS < 15 (0-50); Phosphorous 3.2 mg/dL (2.3-3.7); Potassium 3.8 mmol/L (3.4-5.1); Sodium 141 mmol/L (137-145)
[2020-07-29 05:56] LABS: Macrocytosis 3+
--- NOTE | 2020-07-29 07:00 | DI.RAD.S_ITS ---
PROCEDURE: XR ABDOMEN MIN 2V INDICATIONS: SBO TECHNIQUE: 2 views of the abdomen were acquired. COMPARISON: Outside Facility, RG, CT ABDOMEN/PELVIS WITH CONTRAST, 07/08/2017, 13:28. [facility], CR, XR CHEST 1V, 07/28/2020, 3:06. [facility], CT, CT ABDOMEN PELVIS W CON, 07/27/2020, 17:56. [facility], CR, XR CHEST 1V, 07/27/2020, 20:45. FINDINGS: Surgical changes and devices: Enteric tube is noted with the tip and side port overlying the expected location of the stomach. This has been advanced since prior chest radiographs. Postsurgical changes of the lower abdomen with ostomy bag. Bowel: Multiple dilated loops of small bowel are again noted measuring up to 4.1 centimeters in greatest diameter. There are a few air-fluid levels. Soft tissues: No masses; visualized solid organ contours appear normal in size. No suspicious abdominal calcifications. Bones: No suspicious bony abnormalities. IMPRESSION: Multiple dilated loops of small bowel are again visualize consistent with known small bowel obstruction. Enteric tube is noted with the tip and side port overlying the expected location of the stomach. Dictated by: Carlos Campbell D.O. on 07/29/2020 at 9:16 Approved by: Carlos Campbell D.O. on 07/29/2020 at 9:20
[2020-07-29] MEDS: ACETAMINOPHEN SUSP 650 MG/20.3 ML UDC PO (07:26)
[2020-07-29] MEDS: ONDANSETRON 4 MG/2 ML INJ IV (07:36)
--- NOTE | 2020-07-29 07:57 | PC.NURSE ---
Addendum entered by Gisele Michaud R.N. 07/29/20 13:17: Patient denies pain or nausea at this time, NG is putting out clear fluid in tube. Air flushed through pig tale of ng tube as it was leaking some. He is waiting patiently to go to of W. Spitting up a lot of phlegm, tolerating ice chips. Addendum entered by Gisele Michaud R.N. 07/29/20 12:48: Patient felt that his NG tube had stopped suctioning out contents into suction canister. Checked placement of tube and correctly placed. Flushed and flushing well. NG tubing changed out and there is now some bile in tubing. He is set at 100mm of lIS. Patient is going to be transferred to [facility] soon. Original Note: Assess- Patient nauseous and threw up about 50cc of green bile, given tylenol through tube and zofran. He is uncomfortable overall, if tylenol not effective within 30 minutes will plan on giving him iv morphine. Patient has an ng tube to LIS with green bile in canister. His bowel tones are hypoactive, abdomen slightly distened. He also has a urostomy placed to his r.mid side that is putting out yellow sediment in castañeda bag. Patient is on precautions as culture did grown out gram positive cocci and gram - bacilli. Awaiting sensitivies.
[2020-07-29 08:10] VITALS: BP 153/83; PULSE 66; RESP 15; TEMP 37.4; O2SAT 95
[2020-07-29] MEDS: CEFTRIAXONE 2 GM/50 ML FROZ.PIGGY IV (09:14)
[2020-07-29] MEDS: ENOXAPARIN 40 MG/0.4 ML SYRINGE SUBCUT (09:14)
--- NOTE | 2020-07-29 09:42 | PM.PN.1 ---
Subjective Subjective Date Patient Seen: 07/29/20 Time Patient Seen: 08:45 Interval history: Patient had high-volume NG tube output 600 cc from overnight shift, and another 1 L since, also this morning he had vomiting from around his NG tube, despite having the NG tube. He said that he is also having a new central abdomen pain, while his left lower quadrant lower abdomen pain improving. No fever, no tachycardia, stable hemodynamics, good urine output. No leukocytosis, no metabolic acidosis. Exam Vital Signs (past 8 hours): - 07/29/20 03:00 Pulse Rate 80 Respiratory Rate 22 Blood Pressure 163/92 H Pulse Oximetry 96 Oxygen Delivery Method Room Air Oxygen Flow Rate 0 Narrative Exam Narrative: He is not in distress, not toxic appearing, his at bedside His abdomen without guarding, nondistended, soft, nontender, no rebound tenderness, no appreciable masses or hernia, RLQ urostomy stoma noted CTAB no increased work of breathing, not tachypneic, no wheezing RRR no murmur Intact motor and sensory strength, range of motion, no focal neurological deficit No jaundice, erythema, purpura, no rash No lower extremity edema Objective Labs Result Diagrams: 07/29/20 04:59 07/29/20 04:59 Labs: Laboratory Results - last 24 hr 07/27/20 07/29/20 07/29/20 17:41 04:59 04:59 WBC 7.0 RBC 3.48 L Hgb 14.8 Hct 43.0 MCV 123.5 H MCH 42.4 H MCHC 34.3 RDW 14.3 Plt Count 217 Neut % (Auto) 77.5 H Lymph % (Auto) 9.1 L [place] % (Auto) 13.0 Eos % (Auto) 0.0 L Baso % (Auto) 0.4 Neut # (Auto) 5500 Lymph # (Auto) 600 L [place] # (Auto) 900 Eos # (Auto) 0 Baso # (Auto) 0 RBC Morphology See below Macrocytosis 3+ H Sodium 141 Potassium 3.8 Chloride 108 H Carbon Dioxide 29 BUN 18 Creatinine 1.19 Estimated GFR > 60.0 BUN/Creatinine Ratio 15.1 Glucose 120 H Calcium 8.9 Phosphorus 3.2 D Magnesium 2.0 Urine RBC 5-10/hpf H Urine WBC 5-10/hpf H Ur Squamous Epith Cells 1-5 /hpf Triple Phos Crystals Moderate Amorphous Sediment 1+ Urine Bacteria Moderate (10-30) H Urine Mucus 1+ H Ur Culture Indicated? 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 Surgical History History of urostomy History of vasectomy Family History Brother Age: 71 Diabetes mellitus Hypertension PTSD (post-traumatic stress disorder) Father Age: 89 Obese Vertigo Prostate cancer Hypertension History of radical prostatectomy Mother Age: 88 Breast cancer Hypertension Mental health problem S/P breast lumpectomy Grandmother Heart disease Hypertension Sister Age: 65 Pulmonary hypertension Social History household members: spouse Smoking Status: Never smoker Assessment & Plan Assessment & Plan narrative: The patient seems to have persistent non improving high-grade mechanical small bowel obstruction, no sign of strangulation or ischemia, but he is refractory, therefore highly likely will need surgical intervention. As mentioned, arrangement will be made for him to be transferred to his primary surgeon, urologic surgical oncologist Dr. Srinivas Barros at [facility]. This plan is communicated to Dr. Juan Silva. In the meantime continuing NG tube decompression. Will defer on further imaging as this might be performed at the [facility].
--- NOTE | 2020-07-29 09:45 | P.DS_ITS ---
History of Present Illness <Juan Silva MD - Last Filed: 07/29/20 11:58> History of Present Illness Chief complaint: NON STOP VOMITING ABD PAIN SWEATING LT KENNEDY Burgess Narrative: 69-year-old male normally sees Dr. Hilario Ordonez at [facility] for primary care who presented to the [facility] Emergency Department on 07/27/2020 with nonstop vomiting and abdominal pain. Patient was evaluated found to have a small-bowel obstruction based on imaging and clinical picture. He was evaluated by General surgery and felt like admission to the medicine team with conservative measures including being kept NPO with NG suction etcetera would be most appropriate initially Patient has had multiple abdominal surgeries was never had an issue with bowel obstructions prior to this it appears. Most of his care has occurred in [place] for his various cancers including bladder cancer, status post cystectomy, polycythemia vera, and malignant melanoma. Discharge Providers <Juan Silva MD - Last Filed: 07/29/20 11:58> Provider Date of admission: 07/27/20 20:26 Discharge Date: 07/29/20 Primary care physician: Hilario Ordonez MD Consults: General surgery Discharge provider: Juan Silva MD Summary <Juan Silva MD - Last Filed: 07/29/20 11:58> Hospital Course Discharge Diagnosis: 1. Small-bowel obstruction, not resolved with conservative measures 2. UTI growing Klebsiella pneumonia and Enterococcus faecalis 3. Chronic renal failure stage 2 4. Polycythemia vera, stable on hydroxyurea at baseline 5. 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 Status post cystectomy with ileal conduit creation August 2015 for primary malignant neoplasm of the bladder 7. History of malignant melanoma left ear, stable followed by [facility] 8. History of prostate cancer with known CHEK2 mutation Hospital Course: Patient is admitted via the emergency department with symptoms of abdominal pain nausea and vomiting. Diagnosed with small-bowel obstruction based on clinical features and imaging including CT scan. General surgery was consulted who readily agreed with conservative measures including making patient NPO with NG tube and NG suction as well as IV fluids. Patient continued to have moderate to large volume output from his NG tube and showed no signs of improvement after the 1st 24+ hours. Patient actually had increased symptoms of abdominal pain nausea with some emesis even around the NG tube. Therefore general surgery felt as though he was not going to respond to conservative treatment and would require surgical intervention. Given his complex intra-abdominal anatomy status post his cystectomy with ileal conduit creation several years ago and based on patient's very strong preference, [facility], where his urological surgery was performed, was contacted and they agreed to accept patient in transfer for presumed surgical intervention for his bowel obstruction In addition patient had urine culture performed upon admission and subsequently it is growing Klebsiella and Enterococcus. Patient was initially started on 3rd generation cephalosporin these antibiotics were tailored to levofloxacin to which both organisms showed sensitivity on patient's culture results. Patient's white count was normal upon admission. He was febrile 1 time to 101.2? within the 1st several hours of admission. He was afebrile since that time. Patient also with known history of polycythemia vera usually maintained on hydroxyurea orally. This of course was held while patient is NPO. Patient CBC was essentially unremarkable for this patient and unchanged from baseline. He is followed at the [facility] for this malignancy. Status at Discharge Cognitive/behavioral status at discharge: at baseline, oriented Functional status at discharge: independent ambulation Time Spent with Patient Time spent: Greater than 30 minutes Exam <Juan Silva MD - Last Filed: 07/29/20 11:58> Vital Signs (past 8 hours): - 07/29/20 03:00 Pulse Rate 80 Respiratory Rate 22 Blood Pressure 163/92 H Pulse Oximetry 96 Oxygen Delivery Method Room Air Oxygen Flow Rate 0 Narrative Exam Narrative: HEENT-unremarkable, normocephalic atraumatic Neck-no lymphadenopathy no bruits Lungs-clear anteriorly and posteriorly no wheezes no crackles good breath sounds Heart-regular rate and rhythm, no murmur, rub, or gallop. normal S1-S2 Abdomen-no bowel tones, nontender nondistended no organomegaly detected Neuro-normal to screening exam, gait not tested Extremities-no cyanosis clubbing or edema Objective <Juan Silva MD - Last Filed: 07/29/20 11:58> Labs Result Diagrams: 07/29/20 04:59 07/29/20 04:59 Labs: Laboratory Results - last 24 hr 07/27/20 07/29/20 07/29/20 17:41 04:59 04:59 WBC 7.0 RBC 3.48 L Hgb 14.8 Hct 43.0 MCV 123.5 H MCH 42.4 H MCHC 34.3 RDW 14.3 Plt Count 217 Neut % (Auto) 77.5 H Lymph % (Auto) 9.1 L [place] % (Auto) 13.0 Eos % (Auto) 0.0 L Baso % (Auto) 0.4 Neut # (Auto) 5500 Lymph # (Auto) 600 L [place] # (Auto) 900 Eos # (Auto) 0 Baso # (Auto) 0 RBC Morphology See below Macrocytosis 3+ H Sodium 141 Potassium 3.8 Chloride 108 H Carbon Dioxide 29 BUN 18 Creatinine 1.19 Estimated GFR > 60.0 BUN/Creatinine Ratio 15.1 Glucose 120 H Calcium 8.9 Phosphorus 3.2 D Magnesium 2.0 Urine RBC 5-10/hpf H Urine WBC 5-10/hpf H Ur Squamous Epith Cells 1-5 /hpf Triple Phos Crystals Moderate Amorphous Sediment 1+ Urine Bacteria Moderate (10-30) H Urine Mucus 1+ H Ur Culture Indicated? 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 Polycythemia vera Surgical History (Updated 07/29/20 @ 09:54 by Juan Silva MD) History of urostomy History of vasectomy S/P ileal conduit (~08/2015) Family History Brother Age: 71 Diabetes mellitus Hypertension PTSD (post-traumatic stress disorder) Father Age: 89 Obese Vertigo Prostate cancer Hypertension History of radical prostatectomy Mother Age: 88 Breast cancer Hypertension Mental health problem S/P breast lumpectomy Grandmother Heart disease Hypertension Sister Age: 65 Pulmonary hypertension Social History household members: spouse Smoking Status: Never smoker Discharge Assessment & Plan <Juan Silva MD - Last Filed: 07/29/20 11:58> Assessment and Plan Plan of Treatment: Given complex nature of patient's prior intra-abdominal surgery in 2016 with the robotically assisted cystectomy and ileal conduit creation, and based on patient's strong preference for repeat surgery to be performed at the same institution is his initial urological surgery he was transferred to the [facility] for definitive treatment of his small-bowel obstruction with surgical intervention presumably lysis of adhesions etcetera. Discharge Plan Discharge Plan Patient Disposition: [facility] Provider Discharge Comment: History of cystectomy with ilieal conduit, Aug 2015, Dr. Srinivas Barros, Medicine Discharge Health Status Multidrug resistant organism: No MDRO Precautions: Shaniko Diet/Activity/Treatments Diet: Nothing by Mouth Discharge Data Primary Care Provider: Hilario Ordonez
--- NOTE | 2020-07-29 10:12 | P.PN_ITS ---
Subjective Subjective Date Patient Seen: 07/29/20 Time Patient Seen: 10:12 Interval history: Patient with a fairly uneventful day yesterday. Again have increased abdominal discomfort overnight had some increased nausea and even some emesis despite the NG tube. Has had about 1800 cc out since the NG tube was placed, and another 700 cc or so in the container in the room currently. Patient has remained afebrile. Exam Vital Signs (past 8 hours): - 07/29/20 03:00 07/29/20 08:10 Temperature 99.4 F Pulse Rate 80 66 Respiratory Rate 22 15 Blood Pressure 163/92 H 153/83 H Pulse Oximetry 96 95 Oxygen Delivery Method Room Air Oxygen Flow Rate 0 Objective Labs Result Diagrams: 07/29/20 04:59 07/29/20 04:59 Labs: Laboratory Results - last 24 hr 07/27/20 07/29/20 07/29/20 17:41 04:59 04:59 WBC 7.0 RBC 3.48 L Hgb 14.8 Hct 43.0 MCV 123.5 H MCH 42.4 H MCHC 34.3 RDW 14.3 Plt Count 217 Neut % (Auto) 77.5 H Lymph % (Auto) 9.1 L [place] % (Auto) 13.0 Eos % (Auto) 0.0 L Baso % (Auto) 0.4 Neut # (Auto) 5500 Lymph # (Auto) 600 L [place] # (Auto) 900 Eos # (Auto) 0 Baso # (Auto) 0 RBC Morphology See below Macrocytosis 3+ H Sodium 141 Potassium 3.8 Chloride 108 H Carbon Dioxide 29 BUN 18 Creatinine 1.19 Estimated GFR > 60.0 BUN/Creatinine Ratio 15.1 Glucose 120 H Calcium 8.9 Phosphorus 3.2 D Magnesium 2.0 Urine RBC 5-10/hpf H Urine WBC 5-10/hpf H Ur Squamous Epith Cells 1-5 /hpf Triple Phos Crystals Moderate Amorphous Sediment 1+ Urine Bacteria Moderate (10-30) H Urine Mucus 1+ H Ur Culture Indicated? 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 Polycythemia vera Surgical History (Updated 07/29/20 @ 09:54 by Juan Silva MD) History of urostomy History of vasectomy S/P ileal conduit (~08/2015) Family History Brother Age: 71 Diabetes mellitus Hypertension PTSD (post-traumatic stress disorder) Father Age: 89 Obese Vertigo Prostate cancer Hypertension History of radical prostatectomy Mother Age: 88 Breast cancer Hypertension Mental health problem S/P breast lumpectomy Grandmother Heart disease Hypertension Sister Age: 65 Pulmonary hypertension Social History household members: spouse Smoking Status: Never smoker Assessment & Plan Assessment & Plan narrative: 1. Small-bowel obstruction-patient is still showing evidence of significant high-grade bowel obstruction. Seen by General surgery this morning who concurs and feel strongly that he will likely require surgical intervention. Given that our general surgeon would prefer not to try and manage this institution. Patient is status post robotically assisted cystectomy with ileal conduit creation in 2016 as a complex intra-abdominal now to me therefore and both our general surgeon and patient strongly suggest transfer to [facility] for definitive surgical intervention. We will initiate that process. For now continue with NG suction, NPO, and IV fluids. Current electrolytes and renal function are stable 2. UTI-patient growing both Enterococcus and Klebsiella. Source of sample is unclear as to how sterile it really should be or would be but will go ahead and treat given his initial fever. Will switch to Levaquin which should cover both organisms. Given the uncertain nature of his sample source and the uncertain nature or as to whether not there is truly a pathologic urinary tract infection I am not overly worried about use of a fluoroquinolone in this setting and will trying keep things simple with a single antibiotic at this point 3. Polycythemia-continue patient off of his hydroxyurea of course given his need to be NPO. His numbers are stable and likely would be safe off of treatment for several weeks anyway, which is much longer than anticipate he will need to be off his meds at this point Note: Greater than 30 minutes was spent evaluating the patient on the floor, including examining the patient, discussing clinical course with clinical and nursing staff, reviewing clinical course in the computer, preparing documentation and writing orders for continued management of care, discussing status with family as appropriate, reviewing plans for the next 24 hours with both patient/family and nursing staff as appropriate.
--- NOTE | 2020-07-29 11:08 | CM.DPC ---
DCP/continued: Reviewed chart. Patient currently with SBO requiring surgical intervention. Per Dr. Silva notes from today, attempt will be made to transfer patient to [facility]. Patient currently with NG tube, NPO, on IV fluids. P: Pending transfer. DESI Ochoa
[2020-07-29] MEDS: levoFLOXacin 500 MG/100 ML PIGGYBACK 100 MG IV (11:10)
--- NOTE | 2020-07-29 14:24 | PC.NURSE ---
Patient discharged via ALS. NG clamped and IV HL. Per Rn, they have NG suction and ivf setup in Ambulance. Report will be called, RN at lunch at to call this RN back.
== END 2020-07-29 14:25 | disposition short-term general hospital (02) | DRG 389 ==
LOC: ED 20:04 → AC 20:27
PROVIDERS: Internal Medicine; Admitting Provider Family Medicine; Emergency Provider Emergency Medicine; PCP Family Medicine; Referring Provider Emergency Medicine; Visit Provider Family Medicine
DX: K56.50 Intestinal adhesions [bands], unspecified as to partial versus complete obstruction (principal); N39.0 Urinary tract infection, site not specified; Z16.11 Resistance to penicillins; Z16.29 Resistance to other single specified antibiotic; D45 Polycythemia vera; N18.2 Chronic kidney disease, stage 2 (mild); E80.4 Gilbert syndrome; B96.1 Klebsiella pneumoniae [K. pneumoniae] as the cause of diseases classified elsewhere; B95.2 Enterococcus as the cause of diseases classified elsewhere; Z93.6 Other artificial openings of urinary tract status; Z90.6 Acquired absence of other parts of urinary tract; Z85.46 Personal history of malignant neoplasm of prostate; Z85.820 Personal history of malignant melanoma of skin; Z11.59 Encounter for screening for other viral diseases
CPT/HCPCS: 36415; 71045; 74019; 74177; 80048; 80053; 81003; 81015; 82962; 83690; 83735; 84100; 85025; 85610; 85730; 87077; 87086; 87185; 87186; 87635; 93005; 93010; 96365; 96374; 99284; J0696; J1650; J1956; J2270; J2405; Q9967

== ENCOUNTER → 2020-10-08 10:38 | Outpatient (CLI) | payer MEDICARE, OTHER, SELFPAY ==
[2020-07-27 22:01] VITALS: BMI 25.3
[2020-10-08 11:47] LABS: Add Manual Diff / Slide Review NO; Basophils Absolute Auto 100 /uL (0-100); Basophils Percent Auto 1.8 % (0-2); Eosinophils Absolute Auto 100 /uL (0-450); Eosinophils Percent Auto 2.8 % (2-4); Hematocrit 44.6 % (41-53); Hemoglobin 15.3 g/dL (13.5-17.5); Lymphocytes Absolute Auto 1100 /uL (1100-4500); Lymphocytes Percent Auto 29.8 % (25-40); Mean Corpuscular HGB Conc 34.3 % (30-36); Mean Corpuscular Hemoglobin 41.4 PG (26-34); Mean Corpuscular Volume 120.9 fL (80-100); Monocytes Absolute Auto 400 /uL (0-900); Monocytes Percent Auto 10.8 % (3-14); Neutrophils Absolute Auto 2000 /uL (1500-7000); Neutrophils Percent Auto 54.8 % (50-75); Platelet Count 228 X10^3/uL (150-400); Red Blood Cell Count 3.69 X10^6/uL (4.5-5.9); Red Cell Distribution Width 14.6 % (11.6-14.8); White Blood Cell Count 3.7 X10^3/uL (4.5-11.0)
[2020-10-08 11:52] LABS: Alanine Aminotransferase 22 IU/L (<50); Albumin Globulin Ratio 1.5 (1.0-2.8); Alkaline Phosphatase 68 U/L (38-126); Aspartate Aminotransferase 34 IU/L (17-59); Bilirubin Total 1.1 mg/dL (0.2-1.3); Blood Urea Nitrogen 20 mg/dL (9-20); Calcium 9.6 mg/dL (8.4-10.2); Carbon Dioxide 33 mmol/L (22-32); Chloride 104 mmol/L (98-107); Estimated Glomerular Filt Rate 57.3 mL/min (>60); Globulin 2.7 g/dL (1.7-4.1); Glucose 82 mg/dL (80-110); HEMOLYSIS < 15 (0-50); Lactate Dehydrogenase 423 U/L (313-618); Potassium 4.9 mmol/L (3.4-5.1); Sodium 139 mmol/L (137-145); Total Protein 6.7 g/dL (6.3-8.2)
[2020-10-08 13:43] LABS: Anisocytosis 1+; Macrocytosis 2+; Poikilocytosis 1+
== END ==
PROVIDERS: PCP Internal Medicine; Referring Provider Internal Medicine Hematology & Oncology; Visit Provider Internal Medicine Hematology & Oncology
DX: D45 Polycythemia vera (principal)
CPT/HCPCS: 36415; 80053; 83615; 85025

== ENCOUNTER → 2021-03-14 18:04 | Outpatient (CLI) | payer MEDICARE, OTHER, SELFPAY ==
[2020-07-27 22:01] VITALS: BMI 25.3
--- NOTE | 2021-03-14 18:05 | DI.RAD.S_ITS ---
PROCEDURE: XR ELBOW LT MIN 3V INDICATIONS: Acute elbow pain TECHNIQUE: 3 views of the elbow were acquired. COMPARISON: None. FINDINGS: Bones: No fractures or dislocations. No suspicious bony lesions. There is a small linear hyperdensity adjacent to the coronoid process of ulna. Soft tissues: No elbow joint effusion. No suspicious soft tissue calcifications. IMPRESSION: 1. A small linear density adjacent to the coronoid process is noted. This could represent a small avulsion fracture or intra-articular body. Dictated by: Dionicio Hi M.D. on 03/14/2021 at 18:54 Approved by: Dionicio Hi M.D. on 03/14/2021 at 18:57
== END ==
PROVIDERS: PCP Internal Medicine; Referring Provider Physician Assistant; Visit Provider Physician Assistant
DX: M25.522 Pain in left elbow (principal)
CPT/HCPCS: 73080

== ENCOUNTER → 2021-06-12 08:44 | Outpatient (CLI) | payer MEDICARE, OTHER, SELFPAY ==
[2020-07-27 22:01] VITALS: BMI 25.3
[2021-06-12 10:41] LABS: COVID19 -Nasal RAPID Negative (Negative)
== END ==
PROVIDERS: PCP Internal Medicine; Visit Provider Surgery
DX: Z20.822 Contact with and (suspected) exposure to COVID-19 (principal); Z01.812 Encounter for preprocedural laboratory examination
CPT/HCPCS: 87635; C9803

== ENCOUNTER 2021-06-13 13:25 | Day surgery (SDC) | payer MEDICARE, OTHER, SELFPAY ==
[2020-07-27 22:01] VITALS: BMI 25.3
[2021-06-13 13:57] VITALS: BP 145/88; PULSE 78; RESP 15; TEMP 36.9; O2SAT 97; BMI 24.4
[2021-06-13] MEDS: LACTATED RINGERS 1,000 ML 200 ML IV (14:08)
--- NOTE | 2021-06-13 14:44 | P.HP_ITS ---
History of Present Illness History of Present Illness Date Patient Seen: 06/13/21 Time Patient Seen: 14:44 Chief complaint: SCREENING COLONOSCOPY Narrative: 70-year-old male here screening colonoscopy. Previous colonoscopy 5 years ago was normal. History bladder cancer, prostate cancer and polycythemia vera. He has an ileal conduit. No personal or family history of colon cancer. On further history denies any recent gastrointestinal symptoms. No nausea, vomi ting, abdominal pain, loss of appetite, unexplained weight loss, change in bowel habits, diarrhea, constipation, melena, hematochezia, or bright red blood per rectum. 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 Polycythemia vera Raynauds phenomenon Surgical History History of urostomy History of vasectomy S/P ileal conduit (~08/2015) Family & Social History Family History Brother Age: 72 Diabetes mellitus Hypertension PTSD (post-traumatic stress disorder) Father Age: 90 Obese Vertigo Prostate cancer Hypertension History of radical prostatectomy Mother Age: 89 Breast cancer Hypertension Mental health problem S/P breast lumpectomy Grandmother Heart disease Hypertension Sister Age: 66 Pulmonary hypertension Social History: household members spouse Tobacco & Substance use: Smoking Status Never smoker alcohol intake current alcohol intake frequency holiday/special occasion Substance Use Type does not use Meds Home Medications and Allergies Home Medications Medication Instructions Recorded Confirmed Type [D-MANNOSE] 500 mg PO Q DAY #30 mg 09/02/17 03/19/21 History hydroxyurea 500 mg capsule 500 mg PO BID 04/15/18 06/13/21 History amlodipine 5 mg tablet 5 mg PO DAILY #90 tab 11/05/20 06/13/21 Rx duloxetine 30 mg capsule,delayed 30 mg PO DAILY #90 cap 04/15/21 06/13/21 Rx release Allergies Allergy/AdvReac Type Severity Reaction Status Date / Time Sulfa (Sulfonamide Allergy Intermediate RASH Verified 03/19/21 10:02 Antibiotics) (DON'T [SULFA (SULFONAMIDE KNOW IF IT ANTIBIOTICS)] WAS THIS OR THE PYRIDIUM) phenazopyridine AdvReac Intermediate RASH Verified 03/19/21 10:02 [From PYRIDIUM] (UNSURE IF IT WAS THIS OR THE SULFA) Exam Vital Signs (past 8 hours): - 06/13/21 13:57 Temperature 98.5 F Pulse Rate 78 Respiratory Rate 15 Blood Pressure 145/88 H Pulse Oximetry 97 Oxygen Delivery Method Room Air Narrative Exam Narrative: Constitutional-he is oriented to person, place and time. No apparent distress Cardiovascular- regular rate, no peripheral edema Pulmonary-unlabored respiratory effort, no audible wheezing Abdominal-soft, non-tender, non-distended Musculoskeletal-no cyanosis or clubbing Neurological-nonfocal, normal strength throughout, Skin-warm and dry Assessment & Plan Assessment & Plan narrative: The patient requires colorectal screening and colonoscopy is recommended. Technical details were discussed. Risks, benefits, alternatives explained. Risks including but not limited to myocardial infarction, aspiration, bleeding, pain, missed lesion, incomplete examination, need for further radiographic studies, colonic perforation, and need for major abdominal surgery were discussed. All questions were answered to their satisfaction, and they are in agreement with this plan. Time Spent With Patient Critical Care time: I spent a total of [] minutes of critical care time on this patient's care today; this time is exclusive of procedural time.
[2021-06-13] MEDS: MIDAZOLAM 5 MG/5 ML VIAL IV (14:53)
[2021-06-13] MEDS: fentaNYL 250 MCG/5 ML INJ IV (14:54)
--- NOTE | 2021-06-13 15:22 | P.OP.COLON_ITS ---
Operative Date/Time/Diagnoses Date of procedure: 06/13/21 Time of procedure: 15:23 Pre-op diagnosis: Screening Post-op diagnosis: same Procedure & Clinicians Study performed: Colonoscopy Indications: Screening Surgeon: Suleiman Mathew Procedure Notes Procedure in detail: Medications: Conscious sedation using 4mg IV midazolam and 200mcg IV of fentanyl The history and physical was performed/updated and the patient is ASA class is 2. The procedure was discussed in detail with the patient. Potential risks complications including infection, bleeding, missed diagnosis, perforation, need for surgery, and were explained. Their questions were answered and inform ed consent was obtained. Patient was brought to the procedure room and placed standard monitoring equipment. The patient's vital signs were monitored continuously throughout the entire procedure. Prior to starting time-out was performed. The patient was placed in the left lateral recumbent position. Procedural sedation was administered. Examination began with a thorough inspection of the perianal area there was no evidence of fissures, fistulae, external hemorrhoids or cutaneous malignancy. The colonoscopy scope was then placed into the anal canal and was advanced to the cecum, which was identified by the ileocecal valve, the appendiceal orifice and the confluence of the taenia. The scope was then slowly withdrawn examining colon thoroughly in all directions, irrigating it of any residual stool. FINDINGS 1. No masses polyps or inflammation 2. Tortuous colon 3. Grade 2 internal hemorrhoids The patient tolerated the procedure well. They will be discharged once criteria are met. The prep was of good/excellent quality. The withdrawl time was 6 minutes. The sedation time was 23 minutes. Specimen(s): none sent Complications: none Impression: normal colonoscopy Post-procedure Recommendations: Colonoscopy in 5 years Disposition: same day surgery
[2021-06-13 15:27] VITALS: BP 131/84; PULSE 65; RESP 16; TEMP 36.9; O2SAT 99
[2021-06-13 15:32] VITALS: BP 135/83; PULSE 63; RESP 12; O2SAT 98
[2021-06-13 15:37] VITALS: BP 126/87; PULSE 77; RESP 16; O2SAT 98
[2021-06-13 15:42] VITALS: BP 141/86; PULSE 61; RESP 12; O2SAT 99
[2021-06-13 15:48] VITALS: BP 135/84; PULSE 65; RESP 12; O2SAT 96
== END 2021-06-13 16:00 | disposition home or self-care (01) ==
PROVIDERS: PCP Internal Medicine; Referring Provider Surgery; Visit Provider Surgery
PROC: 0DJD8ZZ Inspection of Lower Intestinal Tract, Via Natural or Artificial Opening Endoscopic (ICD-10-PCS; CPT 45378; principal; 2021-06-13 15:15)
DX: Z12.11 Encounter for screening for malignant neoplasm of colon (principal); N18.2 Chronic kidney disease, stage 2 (mild); I10 Essential (primary) hypertension; D45 Polycythemia vera; K64.1 Second degree hemorrhoids
CPT/HCPCS: G0121; 99152; J2250; J3010

== ENCOUNTER → 2021-10-03 12:57 | Outpatient (CLI) | payer MEDICARE, OTHER, SELFPAY ==
[2020-07-27 22:01] VITALS: BMI 25.3
[2021-10-03 14:04] LABS: Add Manual Diff / Slide Review NO; Basophils Absolute Auto 100 /uL (0-100); Basophils Percent Auto 1.3 % (0-2); Eosinophils Absolute Auto 100 /uL (0-450); Hematocrit 43.7 % (41-53); Hemoglobin 15.3 g/dL (13.5-17.5); Lymphocytes Absolute Auto 1100 /uL (1100-4500); Lymphocytes Percent Auto 21.7 % (25-40); Mean Corpuscular HGB Conc 34.9 % (30-36); Mean Corpuscular Hemoglobin 42.3 PG (26-34); Mean Corpuscular Volume 121.2 fL (80-100); Monocytes Absolute Auto 500 /uL (0-900); Monocytes Percent Auto 9.5 % (3-14); Neutrophils Absolute Auto 3400 /uL (1500-7000); Neutrophils Percent Auto 66.5 % (50-75); Platelet Count 295 X10^3/uL (150-400); Red Blood Cell Count 3.61 X10^6/uL (4.5-5.9); Red Cell Distribution Width 13.8 % (11.6-14.8); White Blood Cell Count 5.2 X10^3/uL (4.5-11.0)
[2021-10-03 14:22] LABS: Alanine Aminotransferase 23 IU/L (<50); Albumin 4.3 g/dL (3.5-5.0); Albumin Globulin Ratio 1.6 (1.0-2.8); Alkaline Phosphatase 57 U/L (38-126); Aspartate Aminotransferase 33 IU/L (17-59); BUN Creatinine Ratio 14.5 (6-22); Bilirubin Total 1.8 mg/dL (0.2-1.3); Blood Urea Nitrogen 18 mg/dL (9-20); Calcium 9.6 mg/dL (8.4-10.2); Carbon Dioxide 30 mmol/L (22-32); Chloride 103 mmol/L (98-107); Estimated Glomerular Filt Rate 57.6 mL/min (>60); Globulin 2.7 g/dL (1.7-4.1); Glucose 95 mg/dL (80-110); HEMOLYSIS < 15 (0-50); Lactate Dehydrogenase 474 U/L (313-618); Magnesium 2.1 mg/dL (1.6-2.3); Potassium 4.6 mmol/L (3.4-5.1); Sodium 140 mmol/L (137-145)
[2021-10-03 14:24] LABS: Macrocytosis 2+
== END ==
PROVIDERS: PCP Internal Medicine; Referring Provider Physician Assistant Medical; Visit Provider Physician Assistant Medical
DX: D45 Polycythemia vera (principal); I10 Essential (primary) hypertension
CPT/HCPCS: 36415; 80069; 80076; 83615; 83735; 85025

== ENCOUNTER → 2023-04-17 14:50 | Outpatient (CLI) | payer MEDICARE, OTHER, SELFPAY ==
[2020-07-27 22:01] VITALS: BMI 25.3
[2023-04-17 16:34] LABS: Add Manual Diff / Slide Review NO; Basophils Absolute Auto 0 /uL (0-100); Eosinophils Absolute Auto 100 /uL (0-450); Eosinophils Percent Auto 1.6 % (2-4); Hematocrit 43.2 % (41-53); Hemoglobin 14.6 g/dL (13.5-17.5); Lymphocytes Absolute Auto 1100 /uL (1100-4500); Lymphocytes Percent Auto 25.8 % (25-40); Mean Corpuscular HGB Conc 33.9 % (30-36); Mean Corpuscular Hemoglobin 38.1 PG (26-34); Mean Corpuscular Volume 112.5 fL (80-100); Monocytes Absolute Auto 400 /uL (0-900); Monocytes Percent Auto 8.3 % (3-14); Neutrophils Absolute Auto 2800 /uL (1500-7000); Neutrophils Percent Auto 63.3 % (50-75); Platelet Count 226 X10^3/uL (150-400); Red Blood Cell Count 3.84 X10^6/uL (4.5-5.9); Red Cell Distribution Width 17.1 % (11.6-14.8); White Blood Cell Count 4.3 X10^3/uL (4.5-11.0)
[2023-04-17 16:49] LABS: Alanine Aminotransferase 27 IU/L (<50); Albumin Globulin Ratio 1.5 (1.0-2.8); Alkaline Phosphatase 74 U/L (38-126); Aspartate Aminotransferase 37 IU/L (17-59); BUN Creatinine Ratio 16.9 (6-22); Bilirubin Total 1.1 mg/dL (0.2-1.3); Blood Urea Nitrogen 20 mg/dL (9-20); Calcium 8.8 mg/dL (8.4-10.2); Carbon Dioxide 26 mmol/L (22-32); Chloride 102 mmol/L (98-107); Estimated Glomerular Filt Rate > 60 mL/min (>60); Globulin 2.6 g/dL (1.7-4.1); Glucose 110 mg/dL (80-110); HEMOLYSIS < 15 (0-50); Lactate Dehydrogenase 252 U/L (120-246); Potassium 4.8 mmol/L (3.4-5.1); Sodium 137 mmol/L (137-145); Total Protein 6.6 g/dL (6.3-8.2)
[2023-04-17 17:06] LABS: Macrocytosis 2+
== END ==
PROVIDERS: Specialist; PCP Internal Medicine; Referring Provider Internal Medicine Hematology & Oncology; Visit Provider Internal Medicine Hematology & Oncology
DX: D45 Polycythemia vera (principal)
CPT/HCPCS: 36415; 80053; 83615; 85025

== ENCOUNTER 2023-11-27 06:55 | Inpatient (IN) | payer MEDICARE, OTHER, SELFPAY ==
[2020-07-27 22:01] VITALS: BMI 25.3
[2023-11-27] VITALS (13 sets, daily range): BP systolic 114–172; BP diastolic 62–89; PULSE 57–75; RESP 14–19; TEMP 36.4–37.2; O2SAT 95–100; BMI 25.7
--- NOTE | 2023-11-27 07:11 | DI.CT.S_ITS ---
PROCEDURE: CT ABDOMEN PELVIS W CON INDICATIONS: pain vomiting hx of obstruction TECHNIQUE: After the administration of intravenous contrast, axial sections acquired from the lung bases to the pubic symphysis. Coronal and sagittal reformats were performed. For radiation dose reduction, the following was used: automated exposure control, adjustment of mA and/or kV according to patient size. COMPARISON: [facility], CT, CT ABDOMEN PELVIS W CON, 07/27/2020, 17:56. FINDINGS: Image quality: Diagnostic. Lower Chest: Stable left lower lobe subpleural 3 millimeter (11/08). ABDOMEN: Liver: No solid mass. Gallbladder: No radiopaque gallstones or wall thickening. Biliary ducts: No biliary dilation. Pancreas: No ductal dilation. Spleen: Size is within normal limits. Adrenal Glands: No adrenal nodules. Kidneys and Ureters: No hydronephrosis. No solid mass. No complex renal cystic lesion which requires follow up. Stomach and Bowel: Small hiatal hernia. And dilated fluid-filled loops of small bowel consistent with obstruction. Dilated loops of small bowel extend to the anastomosis in the right lower quadrant which may represent a transition point. Peritoneum: No abnormal intraperitoneal fluid. No free air. Ventral Wall: No significant ventral hernia. Abdominal Nodes: No retroperitoneal or mesenteric adenopathy by size criteria. Vessels: Aorta and inferior vena cava are normal in size. Atherosclerotic vascular calcifications. PELVIS: Pelvic Organs: Unremarkable. Bladder: Bladder is absent. Right hydrocele is partially visualized. Pelvic Nodes: No enlarged lymph nodes. Miscellaneous: Small bilateral fat containing inguinal hernias are seen. Bones: No aggressive osseous abnormality. Mild degenerative changes. Bilateral L5 pars interarticularis defects. No significant spondylolisthesis. IMPRESSION: 1. Findings consistent with small-bowel obstruction with dilated loops of small bowel extending to the anastomosis in the right lower quadrant which may serve as the transition point. 2. Stable appearance of right lower quadrant ureterostomy. No hydronephrosis. Dictated by: Tino Stroud M.D. on 11/27/2023 at 8:28 Approved by: Tino Stroud M.D. on 11/27/2023 at 8:37
--- NOTE | 2023-11-27 07:18 | ED.ABDPAIN ---
HPI - Abdominal Pain General Chief Complaint: Abdominal Pain Stated Complaint: Bowel obstruction Time Seen by Provider: 11/27/23 07:11 History of Present Illness HPI narrative: Patient is a 73-year-old male history of hypertension early Alzheimer's, bladder cancer with urostomy, polycythemia vera presenting today with abdominal pain nausea and vomiting. He reports that he was in his normal state of health until last night when he started having lower abdominal pain. He is thrown up about 3-4 times. He feels nauseous. He denies any chest pain or shortness breath. He is unsure if he is passing gas and he thinks he had a bowel movement yesterday. Related Data Home Medications Medication Instructions Recorded Confirmed hydroxyurea 500 mg capsule 500 mg PO BID 04/15/18 11/27/23 donepezil 10 mg tablet 10 mg PO DAILY 04/16/23 11/27/23 escitalopram oxalate 10 mg tablet 10 mg PO DAILY Stabilize moods 10/15/23 11/27/23 Previous Rx's Medication Instructions Recorded lorazepam 1 mg tablet 1 mg PO TID PRN anxiety #20 tabs 07/16/23 amlodipine 5 mg tablet 5 mg PO DAILY #90 tabs 10/05/23 Allergies Allergy/AdvReac Type Severity Reaction Status Date / Time Sulfa (Sulfonamide Allergy Intermediate RASH Verified 11/27/23 07:24 Antibiotics) (DON'T [SULFA (SULFONAMIDE KNOW IF IT ANTIBIOTICS)] WAS THIS OR THE PYRIDIUM) phenazopyridine AdvReac Intermediate RASH Verified 11/27/23 07:24 [From PYRIDIUM] (UNSURE IF IT WAS THIS OR THE SULFA) Patient History Medical History Alzheimer disease Cerebral amyloid angiopathy Cognitive impairment Chronic renal failure, stage 3a Raynauds phenomenon Essential hypertension H/O prostate cancer 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 Polycythemia vera Hyperbilirubinemia Depression (09/02/17) 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) History of malignant neoplasm of bladder (08/06/17) Erectile dysfunction after radical cystectomy (08/06/17) Surgical History S/P ileal conduit (~08/2015) History of urostomy History of vasectomy Family History Brother Age: 74 Diabetes mellitus Hypertension PTSD (post-traumatic stress disorder) Father Age: 92 Obese Vertigo Prostate cancer Hypertension History of radical prostatectomy Mother Age: 91 Breast cancer Hypertension Mental health problem S/P breast lumpectomy Grandmother Heart disease Hypertension Sister Age: 68 Pulmonary hypertension Social History household members: spouse Smoking Status: Never smoker alcohol intake: current Smoking Status: Never smoker alcohol intake frequency: holidays/special occasions only Alcohol type: beer Substance Use Type: does not use Exam Initial Vital Signs Initial Vital Signs: Vital Signs Temperature 97.5 F L 11/27/23 07:11 Pulse Rate 65 11/27/23 07:11 Respiratory Rate 16 11/27/23 07:11 Blood Pressure 152/89 H 11/27/23 07:11 Pulse Oximetry 99 11/27/23 07:11 Oxygen Delivery Method Room Air 11/27/23 07:11 GENERAL: Alert 73-year-old male appears uncomfortable and in [no acute] distress. HEENT: Head atraumatic,EOMI, pupils reactive, face symmetric, [moist] mucous membranes CARDIOVASCULAR: Regular rate and rhythm without murmurs, rubs or gallops. RESPIRATORY: Breath sounds equal bilaterally, no wheezes rales or rhonchi. ABDOMEN: Soft tender nondistended increased bowel sounds no guarding no rebound EXTREMITIES: Normal range of motion, no clubbing or edema. Neurovascularly intact NEUROLOGICAL: Alert and oriented x4.Normal gait and speech SKIN: Warm, dry, no laceration, no petechiae, no rashes or lesions. Course Orders Ordered: ED Orders 11/27/23 11:10 Consult to Physician Routine 11/28/23 05:00 Basic Metabolic Panel Routine Complete Blood Count AUTO DIFF Routine Enoxaparin Sodium (Enoxaparin 40 Mg/0.4 Ml Syringe) 40 mg SUBCUT DAILY SAMMY Hydromorphone HCl (Hydromorphone 0.5 Mg Inj) 0.5 mg IV Q2H PRN PRN Reason: Pain, Severe (7-10) Dextrose/Sodium Chloride (Dextrose 5%-0.9% Ns) 1,000 mls @ 100 mls/hr IV CONT SAMMY Last Admin: 11/27/23 11:32 Dose: 100 mls/hr Documented By: RODOLFO Naloxone HCl (Naloxone 0.4 Mg/Ml Vial) 0.2 mg IV Q2MIN PRN PRN Reason: Opiate Reversal Ondansetron HCl (Ondansetron 4 Mg/2 Ml Inj) 4 mg IV Q8HR PRN PRN Reason: Nausea And Vomiting Discontinued Medications Sodium Chloride (Normal Saline 0.9%) 1,000 mls @ 1,000 mls/hr IV BOLUS ONE Stop: 11/27/23 08:10 Last Infusion: 11/27/23 08:48 Dose: Infused Documented By: Admin: 11/27/23 07:23 Dose: 1,000 mls/hr Documented By: JANEY Morphine Sulfate (Morphine 2 Mg/Ml Inj) 2 mg IV NOW ONE Stop: 11/27/23 07:12 Last Admin: 11/27/23 07:23 Dose: 2 mg Documented By: JANEY Ondansetron HCl (Ondansetron 4 Mg/2 Ml Inj) 4 mg IV NOW ONE Stop: 11/27/23 07:12 Last Admin: 11/27/23 07:23 Dose: 4 mg Documented By: JANEY Vital Signs Vital signs: Vital Signs - 8 hr 11/27/23 07:11 Temperature 97.5 F L Pulse Rate 65 Respiratory Rate 16 Blood Pressure 152/89 H Pulse Oximetry 99 Oxygen Delivery Method Room Air MDM - Abdominal Pain Lab Data 11/27/23 07:14 11/27/23 07:14 Labs: Lab Results 11/27/23 Range/Units 07:14 WBC 9.4 (4.5-11.0) X10^3/uL RBC 4.12 L (4.5-5.9) X10^6/uL Hgb 16.9 (13.5-17.5) g/dL Hct 48.7 (41-53) % MCV 118.1 H (80-100) fL MCH 40.9 H (26-34) PG MCHC 34.6 (30-36) % RDW 14.5 (11.6-14.8) % Plt Count 259 (150-400) X10^3/uL Neut % (Auto) 85.6 H (50-75) % Lymph % (Auto) 8.9 L (25-40) % [place] % (Auto) 4.6 (3-14) % Eos % (Auto) 0.2 L (2-4) % Baso % (Auto) 0.7 (0-2) % Neut # (Auto) 8100 H (3700-6609) /uL Lymph # (Auto) 800 L (7238-8258) /uL [place] # (Auto) 400 (0-900) /uL Eos # (Auto) 0 (0-450) /uL Baso # (Auto) 100 (0-100) /uL RBC Morphology See below Poikilocytosis 1+ H Microcytosis 2+ H Sodium 139 (137-145) mmol/L Potassium 4.6 (3.4-5.1) mmol/L Chloride 104 (98-107) mmol/L Carbon Dioxide 28 (22-32) mmol/L BUN 22 H (9-20) mg/dL Creatinine 1.35 H (0.66-1.25) mg/dL Estimated GFR 56 L (>60) mL/min BUN/Creatinine Ratio 16.3 (6-22) Glucose 167 H (80-110) mg/dL Lactate 1.3 (0.7-2.1) mmol/L Calcium 10.3 H (8.4-10.2) mg/dL Total Bilirubin 1.8 H (0.2-1.3) mg/dL AST 36 (17-59) IU/L ALT 26 (<50) IU/L Alkaline Phosphatase 66 (38-126) U/L Total Protein 8.0 (6.3-8.2) g/dL Albumin 4.7 (3.5-5.0) g/dL Globulin 3.3 (1.7-4.1) g/dL Albumin/Globulin Ratio 1.4 (1.0-2.8) Lipase 107 (23-300) U/L Imaging Data CT scan - abdomen/pelvis: Radiologist's Impression: PROCEDURE: CT ABDOMEN PELVIS W CON INDICATIONS: pain vomiting hx of obstruction TECHNIQUE: After the administration of intravenous contrast, axial sections acquired from the lung bases to the pubic symphysis. Coronal and sagittal reformats were performed. For radiation dose reduction, the following was used: automated exposure control, adjustment of mA and/or kV according to patient size. COMPARISON: [facility], CT, CT ABDOMEN PELVIS W CON, 07/27/2020, 17:56. FINDINGS: Image quality: Diagnostic. Lower Chest: Stable left lower lobe subpleural 3 millimeter (11/08). ABDOMEN: Liver: No solid mass. Gallbladder: No radiopaque gallstones or wall thickening. Biliary ducts: No biliary dilation. Pancreas: No ductal dilation. Spleen: Size is within normal limits. Adrenal Glands: No adrenal nodules. Kidneys and Ureters: No hydronephrosis. No solid mass. No complex renal cystic lesion which requires follow up. Stomach and Bowel: Small hiatal hernia. And dilated fluid-filled loops of small bowel consistent with obstruction. Dilated loops of small bowel extend to the anastomosis in the right lower quadrant which may represent a transition point. Peritoneum: No abnormal intraperitoneal fluid. No free air. Ventral Wall: No significant ventral hernia. Abdominal Nodes: No retroperitoneal or mesenteric adenopathy by size criteria. Vessels: Aorta and inferior vena cava are normal in size. Atherosclerotic vascular calcifications. PELVIS: Pelvic Organs: Unremarkable. Bladder: Bladder is absent. Right hydrocele is partially visualized. Pelvic Nodes: No enlarged lymph nodes. Miscellaneous: Small bilateral fat containing inguinal hernias are seen. Bones: No aggressive osseous abnormality. Mild degenerative changes. Bilateral L5 pars interarticularis defects. No significant spondylolisthesis. IMPRESSION: 1. Findings consistent with small-bowel obstruction with dilated loops of small bowel extending to the anastomosis in the right lower quadrant which may serve as the transition point. 2. Stable appearance of right lower quadrant ureterostomy. No hydronephrosis. Dictated by: Tino Stroud M.D. on 11/27/2023 at 8:28 MDM Narrative Medical decision making narrative: Patient 73-year-old male presenting today with abdominal pain. He has a history of hypertension and memory loss. Sudden onset pain last night some nausea and vomiting. On exam he is quite tender in his lower abdomen no obvious distention. He has previously had a small bowel obstruction and sent to the [facility] by their choice. He has not required surgery for previous obstructions. Blood work has been reviewed, no leukocytosis or anemia, creatinine 1.35 previously 1.18, calcium 10.3, bilirubin 1.8 CT scan confirms small bowel obstruction with possible transition point in right lower quadrant He was given morphine and Zofran and IV fluids. He has not vomited in the ED no longer feels nauseous. At this time no indication for NG tube. Pain is much better after morphine as well. Dr. Davis updated patient's symptoms test results agrees with consultation and admit to medicine. Dr. Silva updated patient's symptoms test results and admit Discharge Plan Departure Patient Disposition: Admitted as Observation Clinical Impression: Small bowel obstruction Admit Date/Time: 11/27/23 09:33 Admit Provider: Juan Silva
[2023-11-27] MEDS: MORPHINE 2 MG/ML INJ IV (07:23)
[2023-11-27] MEDS: ONDANSETRON 4 MG/2 ML INJ IV (07:23)
[2023-11-27] MEDS: SODIUM CHLORIDE 0.9% 1,000 ML 1000 ML IV (07:23)
[2023-11-27 07:36] LABS: Add Manual Diff / Slide Review NO; Basophils Absolute Auto 100 /uL (0-100); Basophils Percent Auto 0.7 % (0-2); Eosinophils Absolute Auto 0 /uL (0-450); Eosinophils Percent Auto 0.2 % (2-4); Hematocrit 48.7 % (41-53); Hemoglobin 16.9 g/dL (13.5-17.5); Lymphocytes Absolute Auto 800 /uL (1100-4500); Lymphocytes Percent Auto 8.9 % (25-40); Mean Corpuscular HGB Conc 34.6 % (30-36); Mean Corpuscular Hemoglobin 40.9 PG (26-34); Mean Corpuscular Volume 118.1 fL (80-100); Monocytes Absolute Auto 400 /uL (0-900); Monocytes Percent Auto 4.6 % (3-14); Neutrophils Absolute Auto 8100 /uL (1500-7000); Neutrophils Percent Auto 85.6 % (50-75); Platelet Count 259 X10^3/uL (150-400); Red Blood Cell Count 4.12 X10^6/uL (4.5-5.9); Red Cell Distribution Width 14.5 % (11.6-14.8); White Blood Cell Count 9.4 X10^3/uL (4.5-11.0)
[2023-11-27 07:42] LABS: Alanine Aminotransferase 26 IU/L (<50); Albumin 4.7 g/dL (3.5-5.0); Albumin Globulin Ratio 1.4 (1.0-2.8); Alkaline Phosphatase 66 U/L (38-126); Aspartate Aminotransferase 36 IU/L (17-59); BUN Creatinine Ratio 16.3 (6-22); Bilirubin Total 1.8 mg/dL (0.2-1.3); Blood Urea Nitrogen 22 mg/dL (9-20); Calcium 10.3 mg/dL (8.4-10.2); Carbon Dioxide 28 mmol/L (22-32); Chloride 104 mmol/L (98-107); Estimated Glomerular Filt Rate 56 mL/min (>60); Globulin 3.3 g/dL (1.7-4.1); Glucose 167 mg/dL (80-110); HEMOLYSIS < 15 (0-50); Lipase 107 U/L (23-300); Potassium 4.6 mmol/L (3.4-5.1); Sodium 139 mmol/L (137-145)
[2023-11-27 07:43] LABS: Lactate (Lactic Acid) 1.3 mmol/L (0.7-2.1)
[2023-11-27 09:14] LABS: Microcytosis 2+; Poikilocytosis 1+
--- NOTE | 2023-11-27 10:05 | PM.HP.1 ---
History of Present Illness History of Present Illness Date Patient Seen: 11/27/23 Date of Onset of Symptoms: 11/27/23 Chief complaint: Bowel obstruction Narrative: 73-year-old patient well known to me admitted via emergency department with small-bowel obstruction Apparently within the last 24 hours develop generalized abdominal pain with nausea and vomiting consistent with his prior episodes of a bowel obstruction. He presented to the ER where CT scan confirmed the presence of a small-bowel obstruction with probable transition point at his anastomosis in the right lower quadrant. He has a course got a right lower quadrant ureterostomy after surgical treatment of his bladder cancer Laboratory work was unremarkable white count normal chemistries essentially unremarkable slight bump in his creatinine suggesting perhaps an acute kidney injury Patient is admitted for continued conservative management and surgery has been consulted by the emergency department physician Patient was admitted to the hospital in July 2020 with similar although seemingly more dramatic presentation. He would NG tube placed and continued to drain fairly large volume of bilious material for several days and both myself and General surgery felt like he would require surgical intervention for his bowel obstruction. Given the complex nature of his intra-abdominal organs after his cystectomy and reconstruction for bladder cancer etcetera. He was transferred to [facility] where given the benign nature of his presentation they elected to continue with conservative management need did eventually resolve his bowel obstruction without requiring surgery. 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) History of malignant neoplasm of bladder (08/06/17) Erectile dysfunction after radical cystectomy (08/06/17) Surgical History S/P ileal conduit (~08/2015) History of urostomy History of vasectomy Family History Brother Age: 74 Diabetes mellitus Hypertension PTSD (post-traumatic stress disorder) Father Age: 92 Obese Vertigo Prostate cancer Hypertension History of radical prostatectomy Mother Age: 91 Breast cancer Hypertension Mental health problem S/P breast lumpectomy Grandmother Heart disease Hypertension Sister Age: 68 Pulmonary hypertension Social History household members: spouse Smoking Status: Never smoker alcohol intake: current Meds Home Medications and Allergies Home Medications Medication Instructions Recorded Confirmed Type [D-MANNOSE] 500 mg PO Q DAY #30 mg 09/02/17 10/15/23 History hydroxyurea 500 mg capsule 500 mg PO BID 04/15/18 10/15/23 History cyclobenzaprine 10 mg tablet 10 mg PO TID PRN muscle spasm #30 03/17/22 10/15/23 Rx tabs donepezil 10 mg tablet 10 mg PO DAILY 04/16/23 10/15/23 History lorazepam 1 mg tablet 1 mg PO TID PRN anxiety #20 tabs 07/16/23 10/15/23 Rx amlodipine 5 mg tablet 5 mg PO DAILY #90 tabs 10/05/23 10/15/23 Rx escitalopram oxalate 10 mg tablet 10 mg PO DAILY Stabilize moods 10/15/23 10/15/23 History Allergies Allergy/AdvReac Type Severity Reaction Status Date / Time Sulfa (Sulfonamide Allergy Intermediate RASH Verified 11/27/23 07:24 Antibiotics) (DON'T [SULFA (SULFONAMIDE KNOW IF IT ANTIBIOTICS)] WAS THIS OR THE PYRIDIUM) phenazopyridine AdvReac Intermediate RASH Verified 11/27/23 07:24 [From PYRIDIUM] (UNSURE IF IT WAS THIS OR THE SULFA) Review of Systems Review of Systems ROS: Yes All systems reviewed with the patient and are negative except as otherwise documented Exam Vital Signs (past 8 hours): - 11/27/23 07:11 Temperature 97.5 F L Pulse Rate 65 Respiratory Rate 16 Blood Pressure 152/89 H Pulse Oximetry 99 Oxygen Delivery Method Room Air Oxygen Delivery Method Room Air Narrative Exam Narrative: Non acutely ill-appearing male lying in hospital bed HEENT-unremarkable Lungs-clear with good breath sounds Heart-regular rate and rhythm no murmur rub or gallop Abdomen-nondistended bowel tones not present, no rebound or guarding mild generalized tenderness to deep palpation without rebound or guarding Extremities-no cyanosis clubbing or edema Neuro-alert oriented x3 no obvious focal defects Objective Imaging CT scan - abdomen: Radiologist's impression: PROCEDURE: CT ABDOMEN PELVIS W CON INDICATIONS: pain vomiting hx of obstruction TECHNIQUE: After the administration of intravenous contrast, axial sections acquired from the lung bases to the pubic symphysis. Coronal and sagittal reformats were performed. For radiation dose reduction, the following was used: automated exposure control, adjustment of mA and/or kV according to patient size. COMPARISON: [facility], CT, CT ABDOMEN PELVIS W CON, 07/27/2020, 17:56. FINDINGS: Image quality: Diagnostic. Lower Chest: Stable left lower lobe subpleural 3 millimeter (11/08). ABDOMEN: Liver: No solid mass. Gallbladder: No radiopaque gallstones or wall thickening. Biliary ducts: No biliary dilation. Pancreas: No ductal dilation. Spleen: Size is within normal limits. Adrenal Glands: No adrenal nodules. Kidneys and Ureters: No hydronephrosis. No solid mass. No complex renal cystic lesion which requires follow up. Stomach and Bowel: Small hiatal hernia. And dilated fluid-filled loops of small bowel consistent with obstruction. Dilated loops of small bowel extend to the anastomosis in the right lower quadrant which may represent a transition point. Peritoneum: No abnormal intraperitoneal fluid. No free air. Ventral Wall: No significant ventral hernia. Abdominal Nodes: No retroperitoneal or mesenteric adenopathy by size criteria. Vessels: Aorta and inferior vena cava are normal in size. Atherosclerotic vascular calcifications. PELVIS: Pelvic Organs: Unremarkable. Bladder: Bladder is absent. Right hydrocele is partially visualized. Pelvic Nodes: No enlarged lymph nodes. Miscellaneous: Small bilateral fat containing inguinal hernias are seen. Bones: No aggressive osseous abnormality. Mild degenerative changes. Bilateral L5 pars interarticularis defects. No significant spondylolisthesis. IMPRESSION: 1. Findings consistent with small-bowel obstruction with dilated loops of small bowel extending to the anastomosis in the right lower quadrant which may serve as the transition point. 2. Stable appearance of right lower quadrant ureterostomy. No hydronephrosis. Dictated by: Tino Stroud M.D. on 11/27/2023 at 8:28 Labs 11/27/23 07:14 11/27/23 07:14 Labs: Laboratory Results - last 24 hr 11/27/23 07:14 WBC 9.4 RBC 4.12 L Hgb 16.9 Hct 48.7 MCV 118.1 H MCH 40.9 H MCHC 34.6 RDW 14.5 Plt Count 259 Neut % (Auto) 85.6 H Lymph % (Auto) 8.9 L [place] % (Auto) 4.6 Eos % (Auto) 0.2 L Baso % (Auto) 0.7 Neut # (Auto) 8100 H Lymph # (Auto) 800 L [place] # (Auto) 400 Eos # (Auto) 0 Baso # (Auto) 100 RBC Morphology See below Poikilocytosis 1+ H Microcytosis 2+ H Sodium 139 Potassium 4.6 Chloride 104 Carbon Dioxide 28 BUN 22 H Creatinine 1.35 H Estimated GFR 56 L BUN/Creatinine Ratio 16.3 Glucose 167 H Lactate 1.3 Calcium 10.3 H Total Bilirubin 1.8 H AST 36 ALT 26 Alkaline Phosphatase 66 Total Protein 8.0 Albumin 4.7 Globulin 3.3 Albumin/Globulin Ratio 1.4 Lipase 107 Assessment & Plan Assessment & Plan narrative: 1. Small-bowel obstruction-patient to be admitted kept NPO with IV fluids. He may have a bit of relative volume depletion associated with an acute kidney injury so I think volume replacement least to start with his important. If need be NG tube will be placed and we will be able to more carefully monitor output. Hopefully this will resolve on its own as it did back 3+ years ago. If he does require surgical intervention would likely be a much more complex than typical surgery for bowel obstruction I appreciate input from the general surgery team here as well 2. Hypertension-continue monitor his numbers. He will need to be off his meds until his GI symptoms begin to resolve. If need be we can use either parental or topical meds for control of blood pressure 3. Acute kidney injury-hopefully with appropriate IV fluids as above we will be able to normalize his renal function. Plan to recheck numbers tomorrow 4. Alzheimer's-patient is on multiple medications to help deal with his early onset Alzheimer's disease as per medical staff at the [facility]. Will restart those soon as he is able to take oral medications 5. VTE prophylaxis-Lovenox makes sense. Do not anticipate surgical intervention at this time. Lovenox therefore ordered. 6. Code status-patient has previously requested full code in the setting of a sudden cardiac or respiratory arrest which is not at all anticipated at this time and those orders are entered again for this hospitalization as well [place] Charge Codes Initial inpatient/observation care: [id number]
[2023-11-27] MEDS: DEXTROSE 5%-0.9% NS 1,000 ML 100 ML IV ×2 (11:32→22:00)
--- NOTE | 2023-11-27 14:08 | P.CONS_ITS ---
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 1st one was 4 yrs ago, did not require surgery. Complaint of lower abdominal pain, emesis, and not having BM. Started yesterday. With abdominal pain intensity worsening last night to 06/09. No emesis since admission. Meds Home Medications and Allergies Home Medications Medication Instructions Recorded Confirmed Type hydroxyurea 500 mg capsule 500 mg PO BID 04/15/18 11/27/23 History donepezil 10 mg tablet 10 mg PO DAILY 04/16/23 11/27/23 History lorazepam 1 mg tablet 1 mg PO TID PRN anxiety #20 tabs 07/16/23 11/27/23 Rx amlodipine 5 mg tablet 5 mg PO DAILY #90 tabs 10/05/23 11/27/23 Rx escitalopram oxalate 10 mg tablet 10 mg PO DAILY Stabilize moods 10/15/23 11/27/23 History Allergies Allergy/AdvReac Type Severity Reaction Status Date / Time Sulfa (Sulfonamide Allergy Intermediate RASH Verified 11/27/23 07:24 Antibiotics) (DON'T [SULFA (SULFONAMIDE KNOW IF IT ANTIBIOTICS)] WAS THIS OR THE PYRIDIUM) phenazopyridine AdvReac Intermediate RASH Verified 11/27/23 07:24 [From PYRIDIUM] (UNSURE IF IT WAS THIS OR THE SULFA) Review of Systems Review of Systems ROS: Yes All systems reviewed with the patient and are negative except as otherwise documented Exam Vital Signs (past 8 hours): - 11/27/23 07:11 11/27/23 07:12 11/27/23 07:30 Temperature 97.5 F L Pulse Rate 65 58 L 61 Respiratory Rate 16 19 Blood Pressure 152/89 H Pulse Oximetry 99 98 99 Oxygen Delivery Method Room Air Oxygen Flow Rate 11/27/23 07:30 11/27/23 08:00 11/27/23 08:00 Temperature Pulse Rate 63 Respiratory Rate 19 Blood Pressure 154/87 H 155/83 H Pulse Oximetry 96 Oxygen Delivery Method Oxygen Flow Rate 11/27/23 08:24 11/27/23 08:24 11/27/23 08:30 Temperature Pulse Rate 62 61 Respiratory Rate 16 Blood Pressure 172/89 H Pulse Oximetry 100 99 Oxygen Delivery Method Oxygen Flow Rate 11/27/23 08:31 11/27/23 08:31 11/27/23 09:00 Temperature Pulse Rate 62 Respiratory Rate 17 Blood Pressure 163/85 H 168/89 H Pulse Oximetry 99 Oxygen Delivery Method Oxygen Flow Rate 11/27/23 09:00 11/27/23 09:30 11/27/23 09:30 Temperature Pulse Rate 61 57 L Respiratory Rate 15 15 Blood Pressure 165/87 H Pulse Oximetry 95 97 Oxygen Delivery Method Oxygen Flow Rate 11/27/23 10:00 11/27/23 10:00 11/27/23 10:30 Temperature Pulse Rate 61 Respiratory Rate 16 Blood Pressure 147/74 H 139/77 Pulse Oximetry 97 Oxygen Delivery Method Oxygen Flow Rate 11/27/23 10:30 11/27/23 11:20 11/27/23 12:47 Temperature 98.9 F Pulse Rate 61 75 Respiratory Rate 18 14 Blood Pressure 141/84 H Pulse Oximetry 97 98 Oxygen Delivery Method Oxygen Flow Rate 0 Oxygen Delivery Method Room Air Oxygen Flow Rate 0 Const General: cooperative, comfortable and well groomed Nutritional Appearance: underweight Orientation: alert, awake and oriented x3 [facility] Head: normocephalic and atraumatic Ears: hearing grossly normal bilaterally Eyes Periorbital: periorbital findings normal Sclera: sclerae normal Neck Neck: trachea midline and No tender Resp Effort & Inspection: normal respiratory effort and able to speak in complete sentences Cardio Rate: regular rate Rhythm: regular rhythm GI Inspection: distended Palpation: tender Skin General: atrophy and dry skin Neuro General: patient alert, patient awake and patient oriented x3 Cognition: abnormal cognition (comprehension and attention span abnormal) Speech: speech normal Psych Appearance: well kempt Affect: animated Attitude: cooperative Judgment: limited Objective Labs 11/27/23 07:14 11/27/23 07:14 Labs: Laboratory Results - last 24 hr 11/27/23 07:14 WBC 9.4 RBC 4.12 L Hgb 16.9 Hct 48.7 MCV 118.1 H MCH 40.9 H MCHC 34.6 RDW 14.5 Plt Count 259 Neut % (Auto) 85.6 H Lymph % (Auto) 8.9 L [place] % (Auto) 4.6 Eos % (Auto) 0.2 L Baso % (Auto) 0.7 Neut # (Auto) 8100 H Lymph # (Auto) 800 L [place] # (Auto) 400 Eos # (Auto) 0 Baso # (Auto) 100 RBC Morphology See below Poikilocytosis 1+ H Microcytosis 2+ H Sodium 139 Potassium 4.6 Chloride 104 Carbon Dioxide 28 BUN 22 H Creatinine 1.35 H Estimated GFR 56 L BUN/Creatinine Ratio 16.3 Glucose 167 H Lactate 1.3 Calcium 10.3 H Total Bilirubin 1.8 H AST 36 ALT 26 Alkaline Phosphatase 66 Total Protein 8.0 Albumin 4.7 Globulin 3.3 Albumin/Globulin Ratio 1.4 Lipase 107 PFSH Medical History Alzheimer disease Cerebral amyloid angiopathy Cognitive impairment Chronic renal failure, stage 3a Raynauds phenomenon Essential hypertension H/O prostate cancer 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 Polycythemia vera Hyperbilirubinemia Depression (09/02/17) 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) History of malignant neoplasm of bladder (08/06/17) Erectile dysfunction after radical cystectomy (08/06/17) Surgical History S/P ileal conduit (~08/2015) History of urostomy History of vasectomy Family History Brother Age: 74 Diabetes mellitus Hypertension PTSD (post-traumatic stress disorder) Father Age: 92 Obese Vertigo Prostate cancer Hypertension History of radical prostatectomy Mother Age: 91 Breast cancer Hypertension Mental health problem S/P breast lumpectomy Grandmother Heart disease Hypertension Sister Age: 68 Pulmonary hypertension Social History household members: spouse Tobacco & Substance Use Smoking Status: Never smoker alcohol intake: current Assessment & Plan Assessment & Plan narrative: Recurrent small bowel obstruction with transition RLQ. Plan: conservative treatment of bowel rest and hydration. Time Spent With Patient Time with patient: 30 to 49 minutes with 50% spent counseling/coordinating care
--- NOTE | 2023-11-27 14:35 | PC.NURSE ---
Pt arrived from ED at 1050, A&Ox4, VSS on RA, able to ambulate without assistance to the bed. c/o 4.5/10 pain to abdomen, no nausea, no SOB. Bowel sounds hypoactive. Patient and oriented to room and call light. Bed in low position, call light within reach, bed alarm activated, SCDs on.
[2023-11-27] MEDS: ESCITALOPRAM 10 MG TABLET PO (21:56)
[2023-11-27] MEDS: DONEPEZIL 5 MG TABLET 10 MG PO (22:08)
[2023-11-28 06:00] VITALS: BP 144/78; PULSE 74; RESP 16; TEMP 37; O2SAT 96
[2023-11-28 06:53] LABS: Add Manual Diff / Slide Review NO; Basophils Absolute Auto 0 /uL (0-100); Basophils Percent Auto 0.9 % (0-2); Eosinophils Absolute Auto 100 /uL (0-450); Eosinophils Percent Auto 1.3 % (2-4); Hematocrit 41.9 % (41-53); Hemoglobin 14.3 g/dL (13.5-17.5); Lymphocytes Absolute Auto 1100 /uL (1100-4500); Lymphocytes Percent Auto 20.4 % (25-40); Mean Corpuscular HGB Conc 34.1 % (30-36); Mean Corpuscular Hemoglobin 40.7 PG (26-34); Mean Corpuscular Volume 119.5 fL (80-100); Monocytes Absolute Auto 600 /uL (0-900); Monocytes Percent Auto 12.1 % (3-14); Neutrophils Absolute Auto 3400 /uL (1500-7000); Neutrophils Percent Auto 65.3 % (50-75); Platelet Count 196 X10^3/uL (150-400); Red Cell Distribution Width 14.6 % (11.6-14.8); White Blood Cell Count 5.2 X10^3/uL (4.5-11.0)
[2023-11-28 07:06] LABS: BUN Creatinine Ratio 11.3 (6-22); Blood Urea Nitrogen 15 mg/dL (9-20); Calcium 8.4 mg/dL (8.4-10.2); Carbon Dioxide 28 mmol/L (22-32); Chloride 111 mmol/L (98-107); Estimated Glomerular Filt Rate 57 mL/min (>60); Glucose 109 mg/dL (80-110); HEMOLYSIS < 15 (0-50); Sodium 140 mmol/L (137-145)
[2023-11-28 07:35] LABS: RBC Morphology Normal Morphology
--- NOTE | 2023-11-28 08:00 | DI.RAD.S_ITS ---
PROCEDURE: XR ABDOMEN MIN 2V INDICATIONS: SBO TECHNIQUE: 2 views of the abdomen were acquired. COMPARISON: [facility], CR, XR ABDOMEN MIN 2V, 07/29/2020, 7:49. FINDINGS: Surgical changes and devices: None. Bowel: No pneumoperitoneum. Mild to moderately distended small bowel loops are seen most notably involving left upper quadrant and measures up to 3.5 cm in diameter. Moderate amount of fecal matter is seen in descending colon extending to sigmoid colon and rectum. Soft tissues: No masses; visualized solid organ contours appear normal in size. No suspicious abdominal calcifications. Bones: No suspicious bony abnormalities. IMPRESSION: Finding is suggestive of resolving small bowel obstruction with mildly distended small bowel loops in upper abdomen. Fecal stasis in distal colon. No gross pneumoperitoneum. Dictated by: Nelson Flores M.D. on 11/28/2023 at 10:40 Approved by: Nelson Flores M.D. on 11/28/2023 at 10:41
[2023-11-28] MEDS: ENOXAPARIN 40 MG/0.4 ML SYRINGE SUBCUT (08:53)
[2023-11-28] MEDS: DEXTROSE 5%-0.9% NS 1,000 ML 100 ML IV (08:55)
--- NOTE | 2023-11-28 09:25 | PM.CALLCOV.1 ---
Call Coverage Note Note Date of Patient Contact: 11/28/23 Narrative of Care Provided: My read of abd films is decrease small bowel dilation. No recorded emesis. Plan: clear liquid diet.
--- NOTE | 2023-11-28 10:10 | P.PN_ITS ---
Subjective Subjective Date Patient Seen: 11/28/23 Time Patient Seen: 10:10 Interval history: Patient with no further emesis since admission. No further antiemetics either Was given his antidepressant and generic Aricept last night with small sips of water without adverse effect X-ray done this morning by my interpretation shows slight improvement with evidence of air if nothing else into the sigmoid colon Patient reports to me as I see him this morning that he just had a medium-sized bowel movement No abdominal pain no real nausea Has not yet had any thing really to drink. Was advanced to clear liquids by Dr. Davis earlier this morning Exam Vital Signs (past 8 hours): - 11/28/23 06:00 Temperature 98.6 F Pulse Rate 74 Respiratory Rate 16 Blood Pressure 144/78 H Pulse Oximetry 96 Oxygen Flow Rate 0 Oxygen Delivery Method Room Air Oxygen Flow Rate 0 Objective Labs 11/28/23 06:15 11/28/23 06:15 Labs: Laboratory Results - last 24 hr 11/28/23 06:15 WBC 5.2 RBC 3.50 L Hgb 14.3 Hct 41.9 MCV 119.5 H MCH 40.7 H MCHC 34.1 RDW 14.6 Plt Count 196 Neut % (Auto) 65.3 D Lymph % (Auto) 20.4 L [place] % (Auto) 12.1 Eos % (Auto) 1.3 L Baso % (Auto) 0.9 Neut # (Auto) 3400 Lymph # (Auto) 1100 [place] # (Auto) 600 Eos # (Auto) 100 Baso # (Auto) 0 RBC Morphology Normal morphology Sodium 140 Potassium 4.0 Chloride 111 H Carbon Dioxide 28 BUN 15 Creatinine 1.33 H Estimated GFR 57 L BUN/Creatinine Ratio 11.3 Glucose 109 Calcium 8.4 PFSH Medical History Alzheimer disease Cerebral amyloid angiopathy Cognitive impairment Chronic renal failure, stage 3a Raynauds phenomenon Essential hypertension H/O prostate cancer 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 Polycythemia vera Hyperbilirubinemia Depression (09/02/17) 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) History of malignant neoplasm of bladder (08/06/17) Erectile dysfunction after radical cystectomy (08/06/17) Surgical History S/P ileal conduit (~08/2015) History of urostomy History of vasectomy Family History Brother Age: 74 Diabetes mellitus Hypertension PTSD (post-traumatic stress disorder) Father Age: 92 Obese Vertigo Prostate cancer Hypertension History of radical prostatectomy Mother Age: 91 Breast cancer Hypertension Mental health problem S/P breast lumpectomy Grandmother Heart disease Hypertension Sister Age: 68 Pulmonary hypertension Social History household members: spouse Smoking Status: Never smoker alcohol intake: current Assessment & Plan Assessment & Plan narrative: 1. Small-bowel obstruction-appears to be clearing if not already cleared. Will continue to re-feed and advance as tolerated. If doing well probably okay for discharge sometime in the next 24 hours 2. Question acute kidney injury-patient's creatinine actually at or near baseline. Numbers this morning are relatively unchanged. Will continue IV fluids for now but discontinue if able to advance diet. Doubt there is any significant kidney issue here 3. Hypertension-will restart patient's amlodipine 4. Dementia/anxiety-continue with his Aricept and escitalopram 5. Polycythemia vera-will plan to restart hydroxyurea upon discharge but I think I will continue to hold it during this hospitalization Quality VTE Deep Vein Thrombosis/Pulmonary Embolism Present on Admission: No Profee Charge codes Subsequent inpatient/observation care: [id number]
[2023-11-28] MEDS: AMLODIPINE 5 MG TABLET PO (11:08)
--- NOTE | 2023-11-28 13:48 | CM.DANOTE ---
Initial DCP Assessment Note Pt is a 73 yo male, resident of [place], admitted with small-bowel obstruction PCP: Juan Silva Payer: CLYDE/Juanjose Reviewed chart, met w/patient and his at bedside, introduced self and role. Spouse reports she and patient are active and independent in all aspects and putt around the house. No mention this visit of patient's cognitive decline. Spouse reports that they have a supportive daughter, Cherise, that lives a few miles away from them with her spouse and three children. No hx of HH or SNF. No barriers identified at this time to patient's safe discharge home w/family to assist; close outpatient f/u recommended. CM team will plan to follow closely in case any DC needs or concerns arise. DESI Flowers Discharge Planning/Care Management Discharge Assessment Start: 11/28/23 13:42 Freq: Status: Active Protocol: Document 11/28/23 13:42 DOV (Rec: 11/28/23 13:48 DOV [id number]) Discharge Planning Assessment Assigned Channel Business Manager DESI Ruano DPOA/Assigned Designee Name Lilly Donovan, spouse Contact Information [phone] Advance Directives? Yes Advance Directives on File No History Provided By Patient,Family Member,Medical Record Prior Living Arrangements House Household Members spouse Type of transporation used prior to Relies on Others admit Independent with ADL's Yes Is patient alert and oriented? No: Alzheimer disease, unable to assess severity Needs Assistance With Meal Prep,Managing Medications ,Home Chores / Shopping Barriers to Discharge No Comment Home w/family expected Discharge Plan Home Transportation Arrangement Family Referrals Initiated None needed Whiteboard Updated in Patient Room with Yes name and ext. # of Channel Business Manager
[2023-11-28 14:00] VITALS: BP 127/74; PULSE 57; RESP 16; TEMP 36.6; O2SAT 97
[2023-11-28 20:00] VITALS: BP 134/80; PULSE 60; RESP 17; TEMP 36.2; O2SAT 95
[2023-11-28] MEDS: ESCITALOPRAM 10 MG TABLET PO (21:15)
[2023-11-28] MEDS: DONEPEZIL 5 MG TABLET 10 MG PO (21:15)
[2023-11-29 03:57] VITALS: BP 158/80; PULSE 60; RESP 17; TEMP 36.6; O2SAT 97
--- NOTE | 2023-11-29 04:06 | PC.NURSE ---
rn shift mgr: Patient is AxOx4. Vital signs are stable. Denies N/V, bowel tones are active, patient tolerating CLD. Had applesauce w/ bedtime meds, tolerated well. Had multiple, soft BMs overnight. 1200cc urine out via urostomy. Ambulating in the hallway. Patient states he has some pain when palpating the abdomen, otherwise he states he feels he is improving. Oriented to room & call-light. Plan of care ongoing.
--- NOTE | 2023-11-29 08:00 | PM.PN.1 ---
Subjective Subjective Date Patient Seen: 11/29/23 Time Patient Seen: 08:01 Interval history: Patient with uneventful day yesterday Has had no further nausea vomiting. Still some abdominal pain just lateral to his ostomy, question related to vomiting Had further small bowel movements IV fluids have been discontinued and he is doing well with orals only Exam Vital Signs (past 8 hours): - 11/29/23 03:57 Temperature 97.8 F Pulse Rate 60 Respiratory Rate 17 Blood Pressure 158/80 H Pulse Oximetry 97 Oxygen Flow Rate 0 Oxygen Delivery Method Room Air Oxygen Flow Rate 0 Narrative Exam Narrative: Positive bowel tones, no tenderness rebound or guarding present in the abdomen, no distention Objective Labs 11/28/23 06:15 11/28/23 06:15 [facility] Medical History Alzheimer disease Cerebral amyloid angiopathy Cognitive impairment Chronic renal failure, stage 3a Raynauds phenomenon Essential hypertension H/O prostate cancer 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 Polycythemia vera Hyperbilirubinemia Depression (09/02/17) 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) History of malignant neoplasm of bladder (08/06/17) Erectile dysfunction after radical cystectomy (08/06/17) Surgical History S/P ileal conduit (~08/2015) History of urostomy History of vasectomy Family History Brother Age: 74 Diabetes mellitus Hypertension PTSD (post-traumatic stress disorder) Father Age: 92 Obese Vertigo Prostate cancer Hypertension History of radical prostatectomy Mother Age: 91 Breast cancer Hypertension Mental health problem S/P breast lumpectomy Grandmother Heart disease Hypertension Sister Age: 68 Pulmonary hypertension Social History household members: spouse Smoking Status: Never smoker alcohol intake: current Assessment & Plan Assessment & Plan narrative: 1. Small-bowel obstruction-I will advance his diet this morning and if he tolerates that just fine than he can likely be discharged later today 2. Question acute kidney injury-patient is off IV fluids. I believe his renal function is at baseline 3. Hypertension-blood pressure adequately controlled for the most part as patient continues on his amlodipine 4. Dementia/anxiety-continue with his Aricept and escitalopram 5. Polycythemia vera-restart hydroxyurea upon discharge Quality VTE Deep Vein Thrombosis/Pulmonary Embolism Present on Admission: No
--- NOTE | 2023-11-29 08:02 | PM.DS.1 ---
History of Present Illness History of Present Illness Date Patient Seen: 11/29/23 Chief complaint: Bowel obstruction Narrative: 73-year-old patient well known to me admitted via emergency department with small-bowel obstruction Apparently within the last 24 hours develop generalized abdominal pain with nausea and vomiting consistent with his prior episodes of a bowel obstruction. He presented to the ER where CT scan confirmed the presence of a small-bowel obstruction with probable transition point at his anastomosis in the right lower quadrant. He has a course got a right lower quadrant ureterostomy after surgical treatment of his bladder cancer Laboratory work was unremarkable white count normal chemistries essentially unremarkable slight bump in his creatinine suggesting perhaps an acute kidney injury Patient is admitted for continued conservative management and surgery has been consulted by the emergency department physician Patient was admitted to the hospital in July 2020 with similar although seemingly more dramatic presentation. He would NG tube placed and continued to drain fairly large volume of bilious material for several days and both myself and General surgery felt like he would require surgical intervention for his bowel obstruction. Given the complex nature of his intra-abdominal organs after his cystectomy and reconstruction for bladder cancer etcetera. He was transferred to [facility] where given the benign nature of his presentation they elected to continue with conservative management need did eventually resolve his bowel obstruction without requiring surgery. He does not appear to have had any issues since that time, least in this regard Patient also with early-onset Alzheimer's hypertension polycythemia vera in chronic renal failure stage 3 a Discharge Providers Provider Date of admission: 11/27/23 09:33 Discharge Date: 11/29/23 Primary care physician: Juan Silva MD Consults: 11/27/23 11:10 Consult to Physician Routine Comment: Consulting Provider: Jada Davis Reason for consultation: SBO Has provider been notified: Yes Discharge provider: Juan Silva MD Summary Hospital Course Discharge Diagnosis: 1. Small-bowel obstruction 2. Essential hypertension 3. Chronic renal failure stage 3 a 4. Acute kidney injury, resolved 5. Polycythemia vera 6. Depression Hospital Course: Patient was admitted as above. He had no further emesis during his hospitalization. He was continue IV fluids and given clear liquids and then full liquids without additional symptoms. Patient had bowel movements. Patient's diet was advanced he had no further symptoms. IV fluids were discontinued. Renal function remained stable/at baseline. Blood pressure was adequately controlled on medication Hydroxyurea was held during hospitalization but can be restarted upon discharge Exam Vital Signs (past 8 hours): - 11/29/23 03:57 Temperature 97.8 F Pulse Rate 60 Respiratory Rate 17 Blood Pressure 158/80 H Pulse Oximetry 97 Oxygen Flow Rate 0 Oxygen Delivery Method Room Air Oxygen Flow Rate 0 Objective Labs 11/28/23 06:15 11/28/23 06:15 [facility] Medical History Alzheimer disease Cerebral amyloid angiopathy Cognitive impairment Chronic renal failure, stage 3a Raynauds phenomenon Essential hypertension H/O prostate cancer 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 Polycythemia vera Hyperbilirubinemia Depression (09/02/17) 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) History of malignant neoplasm of bladder (08/06/17) Erectile dysfunction after radical cystectomy (08/06/17) Surgical History S/P ileal conduit (~08/2015) History of urostomy History of vasectomy Family History Brother Age: 74 Diabetes mellitus Hypertension PTSD (post-traumatic stress disorder) Father Age: 92 Obese Vertigo Prostate cancer Hypertension History of radical prostatectomy Mother Age: 91 Breast cancer Hypertension Mental health problem S/P breast lumpectomy Grandmother Heart disease Hypertension Sister Age: 68 Pulmonary hypertension Social History household members: spouse Smoking Status: Never smoker alcohol intake: current Discharge Assessment & Plan Assessment and Plan Plan of Treatment: No change in overall medications upon discharge. Monitor diet continue with low residue diet for a week or 10 days post discharge Plan to be seen in the clinic by Dr. Silva his PCP in a proximally 10-14 days' time Resume all pre-hospital medications upon discharge Discharge Plan Discharge Plan Patient Disposition: Home Discharge orders & Medications Prescriptions: Continued lorazepam 1 mg tablet 1 mg PO TID PRN (Reason: anxiety) Qty: 20 0RF amlodipine 5 mg tablet 5 mg PO DAILY Qty: 90 3RF donepezil 10 mg tablet 10 mg PO DAILY escitalopram oxalate 10 mg tablet 10 mg PO DAILY Changed hydroxyurea 500 mg Capsule 1,000 mg PO DAILY Qty: 60 0RF Follow up/Referrals: Juan Silva MD [Primary Care Provider] - 2 Weeks Discharge Health Status Multidrug resistant organism: No MDRO Diet/Activity/Treatments Diet: Diet as Tolerated Diet comment: Low residue for 7-10 days, as able Visit Report/Discharge Packet Instructions: Small Bowel Obstruction, DI for Small Bowel Obstruction Stand Alone Forms: Patient Portal/API Discharge Data Primary Care Provider: Juan Silva Quality VTE Deep Vein Thrombosis/Pulmonary Embolism Present on Admission: No Profee Charge Codes Discharge inpatient/observation: [id number]
--- NOTE | 2023-11-29 08:19 | PM.PN.1 ---
Subjective Subjective Date Patient Seen: 11/29/23 Time Patient Seen: 08:19 Interval history: Having Bms and tolerating clear liquids Exam Vital Signs (past 8 hours): - 11/29/23 03:57 Temperature 97.8 F Pulse Rate 60 Respiratory Rate 17 Blood Pressure 158/80 H Pulse Oximetry 97 Oxygen Flow Rate 0 Oxygen Delivery Method Room Air Oxygen Flow Rate 0 Narrative Exam Narrative: no acute abdomen, pain resolved. 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) History of malignant neoplasm of bladder (08/06/17) Erectile dysfunction after radical cystectomy (08/06/17) Surgical History S/P ileal conduit (~08/2015) History of urostomy History of vasectomy Family History Brother Age: 74 Diabetes mellitus Hypertension PTSD (post-traumatic stress disorder) Father Age: 92 Obese Vertigo Prostate cancer Hypertension History of radical prostatectomy Mother Age: 91 Breast cancer Hypertension Mental health problem S/P breast lumpectomy Grandmother Heart disease Hypertension Sister Age: 68 Pulmonary hypertension Social History household members: spouse Smoking Status: Never smoker alcohol intake: current Assessment & Plan Assessment & Plan narrative: advance diet as tolerated. General surgery to sign off. Time Spent With Patient Time with patient: less than 30 minutes Quality VTE Deep Vein Thrombosis/Pulmonary Embolism Present on Admission: No
--- NOTE | 2023-11-29 08:49 | CM.DPC ---
DCP Cont. Reviewed EMR and team rounds for status updates. Pt has been medically cleared for d/c, his family will transport him home later this morning. No further DCP needs indicated at this time.
--- NOTE | 2023-11-29 08:53 | PC.NURSE ---
Assess- Patient is alert and oriented x4, he denies abdominal pain at this time and is tolerating his breakfast well. He has been ambulating in the halls and is tolerating this well. Patient does have a discharge and if he tolerates his meal well, we will discharge him this morning. BT+x4 but hypoactive. Patient is comfortable and finishing his breakfast.
[2023-11-29] MEDS: AMLODIPINE 5 MG TABLET PO (09:56)
[2023-11-29] MEDS: ENOXAPARIN 40 MG/0.4 ML SYRINGE SUBCUT (09:56)
[2023-11-29 10:55] VITALS: BP 140/84; PULSE 61; RESP 16; TEMP 36.6; O2SAT 98
== END 2023-11-29 11:00 | disposition home or self-care (01) | DRG 390 ==
LOC: ED 09:13 → AC 10:02
PROVIDERS: Admitting Provider Internal Medicine; Emergency Provider Emergency Medicine; PCP Internal Medicine; Referring Provider Emergency Medicine; Visit Provider Internal Medicine
DX: K56.609 Unspecified intestinal obstruction, unspecified as to partial versus complete obstruction (principal); D45 Polycythemia vera; G30.9 Alzheimer's disease, unspecified; F02.80 Dementia in other diseases classified elsewhere, unspecified severity, without behavioral disturbance, psychotic disturbance, mood disturbance, and anxiety; F41.9 Anxiety disorder, unspecified; I12.9 Hypertensive chronic kidney disease with stage 1 through stage 4 chronic kidney disease, or unspecified chronic kidney disease; N18.31 Chronic kidney disease, stage 3a; F32.A Depression, unspecified
CPT/HCPCS: 36415; 74019; 74177; 80048; 80053; 83605; 83690; 85025; 96374; 96375; 99223; 99231; 99232; 99238; 99284; G0378; J1650; J2270; J2405; Q9967

== ENCOUNTER → 2024-01-19 11:07 | Outpatient (CLI) | payer MEDICARE, OTHER, SELFPAY ==
[2023-11-27 12:38] VITALS: BMI 25.7
[2024-01-19 12:48] LABS: Add Manual Diff / Slide Review NO; Basophils Absolute Auto 100 /uL (0-100); Basophils Percent Auto 1.7 % (0-2); Eosinophils Absolute Auto 0 /uL (0-450); Eosinophils Percent Auto 0.4 % (2-4); Hematocrit 44.2 % (41-53); Hemoglobin 15.1 g/dL (13.5-17.5); Lymphocytes Absolute Auto 1100 /uL (1100-4500); Mean Corpuscular HGB Conc 34.1 % (30-36); Mean Corpuscular Hemoglobin 39.8 PG (26-34); Mean Corpuscular Volume 116.9 fL (80-100); Monocytes Absolute Auto 400 /uL (0-900); Neutrophils Absolute Auto 3000 /uL (1500-7000); Neutrophils Percent Auto 64.9 % (50-75); Platelet Count 171 X10^3/uL (150-400); Red Blood Cell Count 3.78 X10^6/uL (4.5-5.9); Red Cell Distribution Width 14.7 % (11.6-14.8); White Blood Cell Count 4.6 X10^3/uL (4.5-11.0)
[2024-01-19 13:02] LABS: Albumin 4.1 g/dL (3.5-5.0); Albumin Globulin Ratio 1.9 (1.0-2.8); Aspartate Aminotransferase 42 IU/L (17-59); BUN Creatinine Ratio 13.8 (6-22); Bilirubin Total 1.4 mg/dL (0.2-1.3); Blood Urea Nitrogen 19 mg/dL (9-20); Calcium 8.8 mg/dL (8.4-10.2); Carbon Dioxide 31 mmol/L (22-32); Estimated Glomerular Filt Rate 54 mL/min (>60); Globulin 2.2 g/dL (1.7-4.1); Glucose 86 mg/dL (80-110); HEMOLYSIS < 15 (0-50); Potassium 4.5 mmol/L (3.4-5.1); Sodium 140 mmol/L (137-145); Total Protein 6.3 g/dL (6.3-8.2)
[2024-01-19 13:04] LABS: Alanine Aminotransferase 35 IU/L (<50); Alkaline Phosphatase 66 U/L (38-126); Chloride 105 mmol/L (98-107); Lactate Dehydrogenase 180 U/L (120-246)
[2024-01-19 13:22] LABS: Macrocytosis 2+
== END ==
PROVIDERS: PCP Internal Medicine; Referring Provider Internal Medicine; Visit Provider Internal Medicine
DX: D45 Polycythemia vera (principal)
CPT/HCPCS: 36415; 80053; 83615; 85025

== ENCOUNTER → 2024-08-09 11:38 | Outpatient (CLI) | payer MEDICARE, OTHER, SELFPAY ==
[2023-11-27 12:38] VITALS: BMI 25.7
[2024-08-09 12:22] LABS: Add Manual Diff / Slide Review NO; Basophils Absolute Auto 0 /uL (0-100); Basophils Percent Auto 0.5 % (0-2); Eosinophils Absolute Auto 0 /uL (0-450); Eosinophils Percent Auto 0.6 % (2-4); Hemoglobin 13.8 g/dL (13.5-17.5); Lymphocytes Absolute Auto 1300 /uL (1100-4500); Lymphocytes Percent Auto 25.4 % (25-40); Mean Corpuscular HGB Conc 34.6 % (30-36); Mean Corpuscular Volume 121.3 fL (80-100); Monocytes Absolute Auto 400 /uL (0-900); Monocytes Percent Auto 7.6 % (3-14); Neutrophils Absolute Auto 3400 /uL (1500-7000); Neutrophils Percent Auto 65.9 % (50-75); Platelet Count 270 X10^3/uL (150-400); White Blood Cell Count 5.2 X10^3/uL (4.5-11.0)
[2024-08-09 12:51] LABS: Anisocytosis 1+
[2024-08-09 12:52] LABS: Macrocytosis 1+
[2024-08-09 15:54] LABS: Alanine Aminotransferase 21 IU/L (<50); Albumin Globulin Ratio 1.5 (1.0-2.8); Alkaline Phosphatase 54 U/L (38-126); Aspartate Aminotransferase 31 IU/L (17-59); BUN Creatinine Ratio 12.9 (6-22); Bilirubin Total 1.3 mg/dL (0.2-1.3); Blood Urea Nitrogen 21 mg/dL (9-20); Calcium 9.4 mg/dL (8.4-10.2); Carbon Dioxide 26 mmol/L (22-32); Chloride 105 mmol/L (98-107); Estimated Glomerular Filt Rate 44 mL/min (>60); Globulin 2.7 g/dL (1.7-4.1); Glucose 112 mg/dL (80-110); HEMOLYSIS < 15 (0-50); Potassium 4.2 mmol/L (3.4-5.1); Sodium 138 mmol/L (137-145); Total Protein 6.7 g/dL (6.3-8.2)
[2024-08-09 23:07] LABS: Lactate Dehydrogenase 194 U/L (120-246)
== END ==
PROVIDERS: PCP Internal Medicine; Referring Provider Internal Medicine; Visit Provider Internal Medicine
DX: D45 Polycythemia vera (principal)
CPT/HCPCS: 36415; 80053; 83615; 85025; 85045

== ENCOUNTER → 2024-10-03 14:18 | Outpatient (CLI) | payer MEDICARE, OTHER, SELFPAY ==
[2023-11-27 12:38] VITALS: BMI 25.7
[2024-10-03 14:49] LABS: Appearance Urine UA CLEAR; Bilirubin Urine UA NEGATIVE (NEGATIVE); Color Urine UA YELLOW; Glucose Urine UA NEGATIVE (Negative); Ketones Urine UA NEGATIVE (NEGATIVE); Leukocyte Esterase Urine UA NEGATIVE (NEGATIVE); Nitrite Urine UA NEGATIVE (Negative); Occult Blood Urine UA TRACE-LYSED (Negative); Protein Urine UA NEGATIVE (Negative); Specific Gravity Urine UA 1.015 (1.000-1.035); Urine Volume 10mL (spun); Urobilinogen Urine UA 0.2 E.U./dL (0.2)
[2024-10-03 14:50] LABS: Bacteria Urine None Seen; Culture Indicated Urine Specimen Cultured; RBC Urine None Seen (0-5/HPF); Squamous Epithelial Cell Urine None Seen (0-5/HPF); WBC Urine 5-10/HPF (0-5/HPF)
[2024-10-03 15:16] LABS: Alanine Aminotransferase 27 IU/L (<50); Albumin 4.5 g/dL (3.5-5.0); Albumin Globulin Ratio 1.6 (1.0-2.8); Alkaline Phosphatase 52 U/L (38-126); Aspartate Aminotransferase 34 IU/L (17-59); BUN Creatinine Ratio 13.9 (6-22); Bilirubin Total 2.2 mg/dL (0.2-1.3); Blood Urea Nitrogen 21 mg/dL (9-20); Calcium 9.5 mg/dL (8.4-10.2); Carbon Dioxide 27 mmol/L (22-32); Chloride 105 mmol/L (98-107); Estimated Glomerular Filt Rate 48 mL/min (>60); Globulin 2.9 g/dL (1.7-4.1); Glucose 108 mg/dL (80-110); HEMOLYSIS < 15 (0-50); Potassium 4.5 mmol/L (3.4-5.1); Sodium 139 mmol/L (137-145); Total Protein 7.4 g/dL (6.3-8.2)
[2024-10-03 15:20] LABS: Add Manual Diff / Slide Review NO; Basophils Absolute Auto 100 /uL (0-100); Basophils Percent Auto 1.1 % (0-2); Eosinophils Absolute Auto 0 /uL (0-450); Eosinophils Percent Auto 0.6 % (2-4); Hemoglobin 15.3 g/dL (13.5-17.5); Lymphocytes Absolute Auto 1000 /uL (1100-4500); Lymphocytes Percent Auto 20.1 % (25-40); Mean Corpuscular HGB Conc 34.1 % (30-36); Mean Corpuscular Hemoglobin 41.2 PG (26-34); Monocytes Absolute Auto 300 /uL (0-900); Neutrophils Absolute Auto 3600 /uL (1500-7000); Neutrophils Percent Auto 72.2 % (50-75); Platelet Count 250 X10^3/uL (150-400); Red Blood Cell Count 3.72 X10^6/uL (4.5-5.9); Red Cell Distribution Width 14.1 % (11.6-14.8); White Blood Cell Count 4.9 X10^3/uL (4.5-11.0)
[2024-10-03 15:33] LABS: Anisocytosis 1+
[2024-10-03 15:34] LABS: Macrocytosis 1+
== END ==
PROVIDERS: PCP Internal Medicine; Referring Provider Internal Medicine; Visit Provider Internal Medicine
DX: G30.9 Alzheimer's disease, unspecified (principal); F02.80 Dementia in other diseases classified elsewhere, unspecified severity, without behavioral disturbance, psychotic disturbance, mood disturbance, and anxiety; I10 Essential (primary) hypertension; N39.0 Urinary tract infection, site not specified
CPT/HCPCS: 36415; 80053; 81001; 85025; 87077; 87086; 87186

== ENCOUNTER → 2024-10-10 12:52 | Outpatient (CLI) | payer MEDICARE, OTHER, SELFPAY ==
[2023-11-27 12:38] VITALS: BMI 25.7
[2024-10-10 13:36] LABS: Appearance Urine UA CLEAR; Bilirubin Urine UA NEGATIVE (NEGATIVE); Color Urine UA YELLOW; Glucose Urine UA NEGATIVE (Negative); Ketones Urine UA NEGATIVE (NEGATIVE); Leukocyte Esterase Urine UA NEGATIVE (NEGATIVE); Nitrite Urine UA NEGATIVE (Negative); Occult Blood Urine UA NEGATIVE (Negative); Protein Urine UA NEGATIVE (Negative); Specific Gravity Urine UA 1.015 (1.000-1.035); Urobilinogen Urine UA 0.2 E.U./dL (0.2)
[2024-10-10 13:42] LABS: Bacteria Urine None Seen; Culture Indicated Urine Cult Not Indicated; RBC Urine None Seen (0-5/HPF); Squamous Epithelial Cell Urine None Seen (0-5/HPF); Urine Volume 10mL (spun); WBC Urine None Seen (0-5/HPF)
== END ==
PROVIDERS: PCP Internal Medicine; Referring Provider Internal Medicine; Visit Provider Internal Medicine
DX: G30.9 Alzheimer's disease, unspecified (principal); F02.80 Dementia in other diseases classified elsewhere, unspecified severity, without behavioral disturbance, psychotic disturbance, mood disturbance, and anxiety; R41.0 Disorientation, unspecified; R82.90 Unspecified abnormal findings in urine
CPT/HCPCS: 81001

== ENCOUNTER 2024-10-19 18:03 | Emergency (ER) | payer MEDICARE, OTHER, SELFPAY ==
[2023-11-27 12:38] VITALS: BMI 25.7
[2024-10-19 18:07] VITALS: BP 141/80; PULSE 64; RESP 18; TEMP 36.3; O2SAT 98; BMI 26.2
--- NOTE | 2024-10-19 18:17 | DI.US.S_ITS ---
PROCEDURE: US SCROTUM INDICATIONS: swelling, pain TECHNIQUE: Real-time scanning was performed of the scrotum and testicles, with image documentation. Color and pulse Doppler interrogation was performed of both testicles. COMPARISON: None. FINDINGS: Right: Testicle measures 3.1 x 2.1 x 1.9 cm, and homogenous in echotexture. Two small calcifications are present, nonspecific. Epididymis is normal in overall size and morphology. Large hydrocele. No varicocele. Overlying scrotal skin is normal in thickness. Left: Testicle measures 2.8 x 2.3 x 2 cm, and homogeneous in echotexture. Epididymis is normal in overall size and morphology. Moderate hydrocele, no varicocele. Overlying scrotal skin is normal in thickness. Epididymal cyst is present measuring 4 mm. Doppler: Color and pulse Doppler demonstrate normal and symmetric arterial flow in both testicles. IMPRESSION: Large right and moderate left hydroceles. No evidence of acute torsion Dictated by: Gokul Donahue M.D. on 10/19/2024 at 19:16 Approved by: Gokul Donahue M.D. on 10/19/2024 at 19:18
[2024-10-19 18:36] LABS: Bacteria Urine Occasional (0-1); Culture Indicated Urine Specimen Cultured; RBC Urine 0-1/HPF (0-5/HPF); Squamous Epithelial Cell Urine 0-1 /HPF (0-5/HPF); Urine Volume 10mL (spun); WBC Urine 5-10/HPF (0-5/HPF)
--- NOTE | 2024-10-19 19:26 | ED.MALEGU ---
HPI - Male Genitourinary General Chief complaint: Urogenital-Male Stated complaint: recent UTI, swollen and painful scrotum Time Seen by Provider: 10/19/24 19:26 Source: patient Mode of arrival: Ambulatory History of Present Illness HPI Narrative: 74-year-old male with history of Alzheimer's, history of bladder cancer, status post remote urostomy, followed by [facility] urology, treated with 10 day course of cefuroxime for UTI that was completed on 08/12/2025, now having scrotal pain predominantly right-sided, no injury recalled, pain seems worse with movement and not present with rest. attempted to have him take a shower wondering if there might be jock itch her some findings on examination, noticed the scrotum seemed swollen, no trauma known. Seems tender to direct examination scrotal skin per , worse with movement, better when still. No hives, bites, stings. Related Data Home Medications Medication Instructions Recorded Confirmed donepezil 10 mg tablet 10 mg PO DAILY 04/16/23 08/09/24 escitalopram oxalate 20 mg tablet 20 mg PO DAILY Stabilize mood 04/14/24 08/09/24 gabapentin 600 mg tablet 600 mg PO DAILY PRN itching/skin 04/14/24 08/09/24 lesions Previous Rx's Medication Instructions Recorded lorazepam 1 mg tablet 1 mg PO TID PRN anxiety #20 tabs 07/16/23 hydroxyurea 500 mg capsule 1,000 mg (2 x 500 mg) PO DAILY #60 11/29/23 caps naltrexone 50 mg tablet 50 mg PO DAILY #30 tabs 07/04/24 amlodipine 5 mg tablet 5 mg PO DAILY #90 tabs 09/07/24 cefuroxime axetil 500 mg tablet 500 mg PO BID 10 days #20 tabs 10/03/24 Allergies Allergy/AdvReac Type Severity Reaction Status Date / Time Sulfa (Sulfonamide Allergy Intermediate RASH Verified 08/09/24 11:06 Antibiotics) (DON'T [SULFA (SULFONAMIDE KNOW IF IT ANTIBIOTICS)] WAS THIS OR THE PYRIDIUM) memantine AdvReac Intermediate gi Verified 08/09/24 11:24 disurbance phenazopyridine AdvReac Intermediate RASH Verified 08/09/24 11:06 [From PYRIDIUM] (UNSURE IF IT WAS THIS OR THE SULFA) Patient History Medical History (Updated 10/19/24 @ 20:06 by Beto Rocha MD) Small bowel obstruction Alzheimer disease Cerebral amyloid angiopathy Cognitive impairment Chronic renal failure, stage 3a Raynauds phenomenon Essential hypertension H/O prostate cancer 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 Polycythemia vera Hyperbilirubinemia Depression (09/02/17) 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) History of malignant neoplasm of bladder (08/06/17) Erectile dysfunction after radical cystectomy (08/06/17) Surgical History S/P ileal conduit (~08/2015) History of urostomy History of vasectomy Family History Brother Age: 74 Diabetes mellitus Hypertension PTSD (post-traumatic stress disorder) Father Age: 92 Obese Vertigo Prostate cancer Hypertension History of radical prostatectomy Mother Age: 91 Breast cancer Hypertension Mental health problem S/P breast lumpectomy Grandmother Heart disease Hypertension Sister Age: 68 Pulmonary hypertension Social History household members: spouse Smoking Status: Never smoker alcohol intake: current Smoking Status: Never smoker alcohol intake frequency: holidays/special occasions only Alcohol type: beer Exam Narrative Exam Narrative: GENERAL: Well-developed patient, in mild distress. HEAD: Atraumatic. Normocephalic. EYES: Pupils equal round and reactive. Extraocular motions intact. No scleral icterus. No injection or drainage. ENT: Nose without bleeding, purulent drainage. Throat without erythema, tonsillar hypertrophy or exudate. Airway patent. NECK: Trachea midline. Non tender CARDIOVASCULAR: Regular rate and rhythm without murmurs, gallops, or rubs. RESPIRATORY: Clear to auscultation. Breath sounds equal bilaterally. No wheezes, rales, or rhonchi. GASTROINTESTINAL: Abdomen soft, non-tender, nondistended. Left-sided urostomy site with bag intact, no surrounding induration or tenderness. Genitourinary: Circumcised male genitalia without phallic/coronal lesions, scrotum slight swelling right greater than left, no tenderness seems to be present on palpation to testis or along epididymis, no obvious hernia with cough Valsalva. No skin changes and no erythema or rash in the crease there side. No obvious bruising or external trauma obvious. No inguinal lymphadenopathy. EXTREMITIES: No edema or joint tenderness. BACK: Nontender without deformity or crepitance. No flank tenderness. NEURO: AOx3. SKIN: No rash or erythema of visible areas Initial Vital Signs Initial Vital Signs: Vital Signs Temperature 97.4 F L 10/19/24 18:07 Pulse Rate 64 10/19/24 18:07 Respiratory Rate 18 10/19/24 18:07 Blood Pressure 141/80 H 10/19/24 18:07 Pulse Oximetry 98 10/19/24 18:07 Oxygen Delivery Method Room Air 10/19/24 18:07 Course Orders Ordered: ED Orders 10/19/24 18:14 Urine Culture Stat Urine Microscopic Stat 10/19/24 18:17 US scrotum Stat Discontinued Medications Hydrocodone Bitart/Acetaminophen (Hydrocodone/Acet 5/325 Prepack) 1 bottle MISC DIRECTED ONE Stop: 10/19/24 19:57 Last Admin: 10/19/24 20:14 Dose: 1 bottle Documented By: ANDRES Vital Signs Vital signs: Vital Signs - 8 hr 10/19/24 20:35 Pulse Rate 65 Respiratory Rate 16 Blood Pressure 128/86 Pulse Oximetry 98 Oxygen Delivery Method Room Air MDM - Male Genitourinary Lab Data Attestation: I reviewed the patient's lab results. Lab results narrative: Urinalysis negative. Labs: Lab Results 10/19/24 Range/Units 18:14 Urine RBC 0-1/hpf (0-5/HPF) Urine WBC 5-10/hpf H (0-5/HPF) Ur Squamous Epith Cells 0-1 /hpf (0-5/HPF) Urine Bacteria Occasional (0-1) (None) Ur Culture Indicated? Specimen cultured Vol Urine Centrifuged 10ml (spun) Urine Dip Bedside Urine Glucose Negative Bedside Urine Bilirubin - Negative Bedside Urine Ketone - Negative Urine Specific [place] 1.025 Bedside Urine Occult Blood +/- Bedside Urine pH 6.0 Bedside Urine Protein - Negative Bedside Urine Urobilinogen - Negative Bedside Urine Nitrite - Negative Bedside Urine Leukocytes - Negative Esterase Imaging Data Scrotal ultrasound: Radiologist's Impression: [address] [address] Ultrasound Report Signed Patient: Demetrio Donovan MR#: [id number] : 1950 Acct:[id number] Age/Sex: 74 / M Date of Service: 10/19/24 Loc: ED Accession Number: [id number] Procedure: US scrotum Ordering Provider: Beto Rocha MD PROCEDURE: US SCROTUM INDICATIONS: swelling, pain TECHNIQUE: Real-time scanning was performed of the scrotum and testicles, with image documentation. Color and pulse Doppler interrogation was performed of both testicles. COMPARISON: None. FINDINGS: Right: Testicle measures 3.1 x 2.1 x 1.9 cm, and homogenous in echotexture. Two small calcifications are present, nonspecific. Epididymis is normal in overall size and morphology. Large hydrocele. No varicocele. Overlying scrotal skin is normal in thickness. Left: Testicle measures 2.8 x 2.3 x 2 cm, and homogeneous in echotexture. Epididymis is normal in overall size and morphology. Moderate hydrocele, no varicocele. Overlying scrotal skin is normal in thickness. Epididymal cyst is present measuring 4 mm. Doppler: Color and pulse Doppler demonstrate normal and symmetric arterial flow in both testicles. IMPRESSION: Large right and moderate left hydroceles. No evidence of acute torsion Dictated by: Gokul Donahue M.D. on 10/19/2024 at 19:16 Approved by: Gokul Donahue M.D. on 10/19/2024 at 19:18 [facility] Narrative Medical decision making narrative: 74-year-old male with history of bladder cancer status post remote urostomy, recent cefuroxime course of antibiotics completed a few days ago for UTI, now with scrotal pain and swelling, no known trauma but history of Alzheimer's there could be some unknown occult trauma. Some swelling to the scrotum on examination, but no discrete tenderness to the epididymis or testis, some scrotal skin tenderness, without erythema or induration or rash, no vesicles. Ultrasound scrotum ordered Ultrasound shows [id number]-[id number]-[id number]-left hydrocele changes, good flow to both testes, no inflammatory changes or thickening to the epididymis or the testes. See radiology report. Urinalysis negative, no further antibiotics for now. Hydrocele likely it has been present, not likely cause of painful condition, no torsion confirmed, no inflammatory changes orchitis or epididymitis. We will give home pack of hydrocodone which she has tolerated in the past, to use for pain control if it were needed. Follow up with Urology as an outpatient for hydrocele finding. Patient will be accompanying tomorrow back to [facility] for training urostomy care that the will have, they could consult Urology or ED there if they feel like the pain is persisting if they feel like the pain is persisting. was given a copy of the ultrasound report to present to care providers there if needed. Return precautions discussed. Discharge Plan Departure Patient Disposition: Home Clinical Impression: Pain in scrotum, Hydrocele in adult Activity Restrictions/Additional Instructions: Mr Donovan, History of bladder cancer with remote urostomy, recent urinary tract infection treated with a course of cefuroxime antibiotic that was finished on 10/13/2024, now with scrotal pain, no known trauma but history of Alzheimer's known, there could be occult trauma not recalled. Urinalysis today here was reassuring and negative. On examination there is no obvious bruising, there seems to be sensitivity to touch to the skin, not necessarily when there is palpation or squeezing of the testis or the epididymis on the right or left side. Ultrasound was obtained and showed good flow of blood to both testes, no inflammatory changes to the testes or the epididymal cord, no acute changes, but did show euthv-xkbqfqq-gwyi-left hydrocele which might be an incidental finding and perhaps not an acute change. Unclear cause of the discomfort, no obvious rash on skin exam although there seems to be some skin hypersensitivity on palpation. We could start some antibiotics but he just recently court had a course of antibiotics and there is no definite infectious process identified so far. Home pack of hydrocodone/acetaminophen given for pain control to use if needed. is having training with urostomy care team at [facility] tomorrow, where will you will be in proximity of your urologist and your established urology care providers. Consider consultation their emergency department or with their urologist if there is ongoing pain of concern. Bring copy of your ultrasound report from your visit today. Take pain medications as needed. Return earlier to this/nearest emergency department for any change worsening symptoms or any concerns prior. Thank you for allowing our team to evaluate you today. Prescriptions: No Action lorazepam 1 mg tablet 1 mg PO TID PRN (Reason: anxiety) Qty: 20 0RF naltrexone 50 mg tablet 50 mg PO DAILY Qty: 30 3RF amlodipine 5 mg tablet 5 mg PO DAILY Qty: 90 3RF cefuroxime axetil 500 mg tablet 500 mg PO BID 10 Days Qty: 20 1RF donepezil 10 mg tablet 10 mg PO DAILY escitalopram oxalate 20 mg tablet 20 mg PO DAILY gabapentin 600 mg tablet 600 mg PO DAILY PRN (Reason: itching/skin lesions) hydroxyurea 500 mg Capsule 1,000 mg PO DAILY Qty: 60 0RF Referrals: Juan Silva MD [Primary Care Provider] - Stand Alone Forms: Patient Portal/API/Survey
[2024-10-19] MEDS: HYDROCODONE/ACET 5/325 PREPACK 1 BOTTLE MISC (20:14)
[2024-10-19 20:35] VITALS: BP 128/86; PULSE 65; RESP 16; O2SAT 98
== END 2024-10-19 20:35 | disposition home or self-care (01) ==
PROVIDERS: Emergency Provider Emergency Medicine; PCP Internal Medicine
DX: N50.82 Scrotal pain (principal); N43.3 Hydrocele, unspecified; Z93.6 Other artificial openings of urinary tract status; Z85.51 Personal history of malignant neoplasm of bladder; Z87.440 Personal history of urinary (tract) infections
CPT/HCPCS: 76870; 81003; 81015; 87086; 93975; 99282; 99283

== ENCOUNTER → 2025-02-06 14:54 | Outpatient (CLI) | payer MEDICARE, OTHER, SELFPAY ==
[2025-01-09 11:43] VITALS: BMI 25.7
[2025-02-06 15:47] LABS: Add Manual Diff / Slide Review NO; Basophils Absolute Auto 100 /uL (0-100); Basophils Percent Auto 1.5 % (0-2); Eosinophils Absolute Auto 100 /uL (0-450); Eosinophils Percent Auto 1.7 % (2-4); Hematocrit 42.3 % (41-53); Hemoglobin 15.1 g/dL (13.5-17.5); Lymphocytes Absolute Auto 1500 /uL (1100-4500); Lymphocytes Percent Auto 32.6 % (25-40); Mean Corpuscular HGB Conc 35.7 % (30-36); Mean Corpuscular Hemoglobin 42.2 PG (26-34); Mean Corpuscular Volume 118.4 fL (80-100); Monocytes Absolute Auto 400 /uL (0-900); Monocytes Percent Auto 8.9 % (3-14); Neutrophils Absolute Auto 2600 /uL (1500-7000); Neutrophils Percent Auto 55.3 % (50-75); Platelet Count 245 X10^3/uL (150-400); Red Blood Cell Count 3.57 X10^6/uL (4.5-5.9); Red Cell Distribution Width 14.8 % (11.6-14.8); White Blood Cell Count 4.7 X10^3/uL (4.5-11.0)
[2025-02-06 15:48] LABS: Alanine Aminotransferase 28 IU/L (<50); Albumin 4.1 g/dL (3.5-5.0); Albumin Globulin Ratio 1.8 (1.0-2.8); Alkaline Phosphatase 78 U/L (38-126); Aspartate Aminotransferase 37 IU/L (17-59); BUN Creatinine Ratio 14.8 (6-22); Bilirubin Total 1.2 mg/dL (0.2-1.3); Blood Urea Nitrogen 23 mg/dL (9-20); Calcium 8.9 mg/dL (8.4-10.2); Carbon Dioxide 26 mmol/L (22-32); Chloride 106 mmol/L (98-107); Estimated Glomerular Filt Rate 47 mL/min (>60); Globulin 2.3 g/dL (1.7-4.1); Glucose 100 mg/dL (70-99); HEMOLYSIS 15 (0-50); Lactate Dehydrogenase 206 U/L (120-246); Potassium 4.8 mmol/L (3.4-5.1); Sodium 138 mmol/L (137-145); Total Protein 6.4 g/dL (6.3-8.2)
[2025-02-06 16:23] LABS: Anisocytosis 1+
[2025-02-06 16:24] LABS: Macrocytosis 2+
== END ==
LOC: LAB 14:57
PROVIDERS: PCP Internal Medicine; Referring Provider Internal Medicine; Visit Provider Internal Medicine
DX: D45 Polycythemia vera (principal)
CPT/HCPCS: 36415; 80053; 83615; 85025

== ENCOUNTER 2025-08-06 12:27 | Emergency (ER) | payer MEDICARE, OTHER, SELFPAY ==
[2025-01-09 11:43] VITALS: BMI 25.7
[2025-08-06] VITALS (7 sets, daily range): BP systolic 101–132; BP diastolic 65–75; PULSE 59–79; RESP 17–30; O2SAT 84–95; BMI 29.2
--- NOTE | 2025-08-06 12:40 | DI.RAD.S_ITS ---
PROCEDURE: XR CHEST 1V INDICATIONS: syncope TECHNIQUE: One view of the chest was acquired. COMPARISON: [facility], CR, XR CHEST 1V, 07/28/2020, 3:06. FINDINGS: Surgical changes and devices: None. Lungs and pleura: Low lung volumes with bibasilar atelectasis. No pleural effusions or pneumothorax. Mediastinum: Mediastinal contours appear normal. Heart size is normal. Bones and chest wall: No suspicious bony lesions. Overlying soft tissues appear unremarkable. IMPRESSION: No acute cardiopulmonary abnormality is seen. Dictated by: Tyler Crockett M.D. on 08/06/2025 at 12:32 Approved by: Tyler Crockett M.D. on 08/06/2025 at 12:33
--- NOTE | 2025-08-06 12:41 | DI.CT.S_ITS ---
PROCEDURE: CT HEAD/BRAIN WO CON INDICATIONS: syncope TECHNIQUE: Noncontrast 4.5 mm thick angled axial sections acquired from the foramen magnum to the vertex, with coronal and sagittal reformats. For radiation dose reduction, the following was used: automated exposure control, adjustment of mA and/or kV according to patient size. COMPARISON: None. FINDINGS: Image quality: Diagnostic. CSF spaces: Basal cisterns are patent. No extra-axial fluid collections. The ventricles are symmetric in size and shape. Brain: No intracranial bleeds or mass effect. There is cerebral volume loss, with resultant ventricular and sulcal prominence. Parenchymal calcifications within the bilateral dentate nuclei. There are periventricular and deep white matter chronic small vessel ischemic changes. There is intracranial internal carotid artery atherosclerosis. Skull and face: Calvarium and visualized facial bones appear intact, without suspicious lesions. Sinuses: Visualized sinuses and mastoids are clear. IMPRESSION: No acute intracranial pathology. Dictated by: Tyler Crockett M.D. on 08/06/2025 at 12:22 Approved by: Tyler Crockett M.D. on 08/06/2025 at 12:24
--- NOTE | 2025-08-06 12:42 | ED.SYNCOPE ---
HPI - Syncope General Chief Complaint: Altered Mental Status Stated Complaint: syncope/AMS Time Seen by Provider: 08/06/25 12:50 History of Present Illness HPI narrative: This 74-year-old white male with a history of Alzheimer's dementia who according to the he had 2 syncopal episodes earlier this morning. According to the at the time he did have a decreased level of consciousness. However according to the now he is at his baseline mental status. No head trauma no neck pain no chest pain or shortness of breath because of the Alzheimer's history is limited. Related Data Home Medications ?Medication ?Instructions ?Recorded ?Confirmed donepezil 10 mg tablet 10 mg PO DAILY 04/16/23 08/09/24 escitalopram oxalate 20 mg tablet 20 mg PO DAILY Stabilize mood 04/14/24 08/09/24 quetiapine 50 mg tablet 50 mg PO DAILY agitation 01/09/25 01/09/25 trazodone 100 mg tablet 100 mg PO BEDTIME sleep aide 07/10/25 07/10/25 trazodone 50 mg tablet 50 mg PO TID Agitation, 07/10/25 07/10/25 restlessness Previous Rx's ?Medication ?Instructions ?Recorded lorazepam 1 mg tablet 1 mg PO TID PRN anxiety #20 tabs 07/16/23 hydroxyurea 500 mg capsule 1,000 mg (2 x 500 mg) PO DAILY #60 11/29/23 caps cephalexin 500 mg capsule 500 mg PO Q8H 10 days #30 caps 08/06/25 Allergies Allergy/AdvReac Type Severity Reaction Status Date / Time Sulfa (Sulfonamide Allergy Intermediate RASH Verified 08/06/25 12:48 Antibiotics) (SULFA (DON'T (SULFONAMIDE ANTIBIOTICS)) KNOW IF IT WAS THIS OR THE PYRIDIUM) memantine AdvReac Intermediate gi Verified 08/06/25 12:48 disurbance phenazopyridine (From AdvReac Intermediate RASH Verified 08/06/25 12:48 PYRIDIUM) (UNSURE IF IT WAS THIS OR THE SULFA) Review of Systems Review of Systems ROS Unobtainable: Unobtainable due to mental status/LOC Patient History Medical History (Updated 08/06/25 @ 13:53 by Beto Ledezma MD) Small bowel obstruction Alzheimer disease Cerebral amyloid angiopathy Cognitive impairment Chronic renal failure, stage 3a Raynauds phenomenon Essential hypertension H/O prostate cancer 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 Polycythemia vera Hyperbilirubinemia Depression (09/02/17) 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) History of malignant neoplasm of bladder (08/06/17) Erectile dysfunction after radical cystectomy (08/06/17) Surgical History S/P ileal conduit (~08/2015) History of urostomy History of vasectomy Family History Brother Age: 74 Diabetes mellitus Hypertension PTSD (post-traumatic stress disorder) Father Age: 92 Obese Vertigo Prostate cancer Hypertension History of radical prostatectomy Mother Age: 91 Breast cancer Hypertension Mental health problem S/P breast lumpectomy Grandmother Heart disease Hypertension Sister Age: 68 Pulmonary hypertension Social History household members: spouse Smoking Status: Never smoker alcohol intake: current alcohol intake frequency: holidays/special occasions only Alcohol type: beer Exam Narrative Exam Narrative: GENERAL:74 year old patient appears stated age. Well-developed patient, in mild distress. HEAD: Atraumatic. Normocephalic. EYES: Pupils equal round and reactive. Extraocular motions intact. No scleral icterus. No injection or drainage. ENT: Nose without bleeding, purulent drainage. Throat without erythema, tonsillar hypertrophy or exudate. Airway patent. NECK: Trachea midline. Non tender CARDIOVASCULAR: Regular rate and rhythm without murmurs, gallops, or rubs. RESPIRATORY: Clear to auscultation. Breath sounds equal bilaterally. No wheezes, rales, or rhonchi. GASTROINTESTINAL: Abdomen soft, non-tender, nondistended. EXTREMITIES: No edema or joint tenderness. BACK: Nontender without deformity or crepitance. No flank tenderness. NEURO: Alert awake but confused. No focal neurological deficits. SKIN: No rash or erythema of visible areas Initial Vital Signs Initial Vital Signs: Vital Signs Pulse Rate 79 08/06/25 12:30 Respiratory Rate 30 H 08/06/25 12:30 Pulse Oximetry 84 L 08/06/25 12:30 Course Orders Ordered: ED Orders 08/06/25 12:35 Complete Blood Count AUTO DIFF Stat Comprehensive Metabolic Panel Stat PTT Partial Thromboplastin Jose Stat Prothrombin Time INR Stat Thyroid Stimulating Hormone Stat Troponin I Stat 08/06/25 12:40 XR chest 1V Stat Ammonia (NH3) Stat 08/06/25 12:41 CT head/brain wo con Stat Urinalysis and Microscopic Stat Urine Culture Stat EKG-12 Lead Stat Discontinued Medications Ceftriaxone Sodium 1,000 mg/ (Sodium Chloride) 100 mls @ 200 mls/hr IV NOW ONE Stop: 08/06/25 13:48 Vital Signs Vital signs: Vital Signs - 8 hr 08/06/25 12:30 08/06/25 12:32 08/06/25 12:32 Pulse Rate 79 78 Respiratory Rate 30 H 28 H Blood Pressure 113/75 Pulse Oximetry 84 L 87 L 08/06/25 13:00 08/06/25 13:00 Pulse Rate 69 Respiratory Rate 25 H Blood Pressure 101/65 Pulse Oximetry 94 MDM - Syncope Lab Data 08/06/25 12:35 08/06/25 12:35 Labs: Lab Results 08/06/25 08/06/25 08/06/25 Range/Units 12:35 12:40 12:41 WBC 8.8 (4.5-11.0) X10^3/uL RBC 3.39 L (4.5-5.9) X10^6/uL Hgb 14.6 (13.5-17.5) g/dL Hct 41.6 (41-53) % MCV 122.6 H (80-100) fL MCH 42.9 H (26-34) PG MCHC 35.0 (30-36) % RDW 14.9 H (11.6-14.8) % Plt Count 320 (150-400) X10^3/uL Neut % (Auto) 82.5 H (50-75) % Lymph % (Auto) 9.4 L (25-40) % Oliver % (Auto) 7.2 (3-14) % Eos % (Auto) 0.3 L (2-4) % Baso % (Auto) 0.6 (0-2) % Neut # (Auto) 7300 H (9327-9171) /uL Lymph # (Auto) 800 L (2307-6450) /uL Oliver # (Auto) 600 (0-900) /uL Eos # (Auto) 0 (0-450) /uL Baso # (Auto) 100 (0-100) /uL Nucleated RBCs Cancelled Hypersegmented Neuts Cancelled Hypogranular Neuts Cancelled Reactive Lymphocytes Cancelled Smudge Cells Cancelled Other Cell Type Cancelled Toxic Granulation Cancelled Toxic Vacuolation Cancelled Dohle Bodies Cancelled Miguel Rods Cancelled WBC Morphology Comment Cancelled Platelet Estimate Cancelled Clumped Platelets Cancelled Plt Morphology Comment Cancelled RBC Morphology Cancelled Dimorphic RBCs Cancelled Polychromasia Cancelled Hypochromasia Cancelled Poikilocytosis Cancelled Basophilic Stippling Cancelled Anisocytosis Cancelled Microcytosis Cancelled Macrocytosis Cancelled Spherocytes Cancelled Pappenheimer Bodies Cancelled Sickle Cells Cancelled Target Cells Cancelled Tear Drop Cells Cancelled Ovalocytes Cancelled Stomatocytes Cancelled Helmet Cells Cancelled Gupta-[place] Bodies Cancelled [place] Rings Cancelled [place] Cells Cancelled Acanthocytes (Spur) Cancelled Rouleaux Cancelled Schistocytes Cancelled PT 12.3 (9.4-12.5) SECONDS INR 1.1 (0.9-1.3) APTT 29 (25.1-36.5) SECONDS Sodium 139 (137-145) mmol/L Potassium 4.2 (3.4-5.1) mmol/L Chloride 107 (98-107) mmol/L Carbon Dioxide 21 L (22-32) mmol/L BUN 18 (9-20) mg/dL Creatinine 1.87 H (0.66-1.25) mg/dL Estimated GFR 37 L (>60) mL/min BUN/Creatinine Ratio 9.6 (6-22) Glucose 155 H (70-99) mg/dL Calcium 8.7 (8.4-10.2) mg/dL Total Bilirubin 1.1 (0.2-1.3) mg/dL AST 31 (17-59) IU/L ALT 20 (<50) IU/L Alkaline Phosphatase 78 (38-126) U/L Ammonia < 9 L (9-30) umol/L Troponin I < 0.012 (0.01-0.034) ng/mL Total Protein 7.3 (6.3-8.2) g/dL Albumin 4.2 (3.5-5.0) g/dL Globulin 3.1 (1.7-4.1) g/dL Albumin/Globulin Ratio 1.4 (1.0-2.8) TSH 2.14 (0.47-4.68) uIU/mL Urine Color Yellow Urine Appearance Sl cloudy Urine pH 7.0 (4.5-8.0) Ur Specific [place] 1.015 (1.000-1.035) Urine Protein 1+ H (Negative) Urine Glucose (UA) Negative (Negative) g/dL Urine Ketones Trace H (NEGATIVE) Urine Occult Blood Trace-intact (Negative) Urine Nitrate Positive H (Negative) Urine Bilirubin Negative (NEGATIVE) Urine Urobilinogen 0.2 (0.2) E.U./dL Ur Leukocyte Esterase 2+ H (NEGATIVE) Urine RBC 1-5/hpf (0-5/HPF) Urine WBC 10-30/hpf H (0-5/HPF) Ur Squamous Epith Cells 0-1 /hpf (0-5/HPF) Urine Bacteria Many (>30) H (None) Urine Mucus 1+ H (Negative) Ur Culture Indicated? Specimen cultured Vol Urine Centrifuged Low vol <10ml (spun) A Point of Care Testing Glucose POC 160 MDM Narrative Medical decision making narrative: The patient had a CT of the head read by the radiologist negative patient had chest x-ray read by the radiologist negative patient had EKG reveals sinus rhythm 67 beats per minute normal axis no blocks no acute changes patient had a CBC within normal limits a chemistry remarkable for glucose of 155 and creatinine 1.9 urinalysis was positive for leukocytes nitrates and temp 30? WBCs. Ammonia was negative troponin was negative TSH was normal. In the emergency room patient was given a bolus of normal saline. Patient was then given a g of IV Rocephin. At this point at think his D like was due to urinary tract infection. I will send the patient home on Keflex 500 q.i.d. and get follow up with his doctor next 1-2 days. Patient should also be encouraged to increase his p.o. fluid intake. Differential diagnosis is stroke seizure sepsis pneumonia UTI Discharge Plan Departure Patient Disposition: Home Clinical Impression: Acute alteration in mental status, Complicated UTI (urinary tract infection) Instructions: DI for Urinary Tract Infection (UTI), DI for Altered Mental Status Prescriptions: New cephalexin 500 mg capsule 500 mg PO Q8H 10 Days Qty: 30 0RF No Action lorazepam 1 mg tablet 1 mg PO TID PRN (Reason: anxiety) Qty: 20 0RF quetiapine 50 mg tablet 50 mg PO DAILY Patient Comments: Take in PM. Take 1 additional in AM if needed Rx Instructions: 1 additional tab in AM if needed. trazodone 100 mg tablet 100 mg PO BEDTIME donepezil 10 mg tablet 10 mg PO DAILY escitalopram oxalate 20 mg tablet 20 mg PO DAILY trazodone 50 mg tablet 50 mg PO TID Patient Comments: Up to 3x per day as needed in addition to 100mg at bedtime hydroxyurea 500 mg Capsule 1,000 mg PO DAILY Qty: 60 0RF Referrals: Juan Silva MD [Primary Care Provider, Internal Medicine] - As soon as possible Stand Alone Forms: Patient Portal/API
[2025-08-06 12:49] LABS: Add Manual Diff / Slide Review NO; Hematocrit 41.6 % (41-53); Hemoglobin 14.6 g/dL (13.5-17.5); INR 1.1 (0.9-1.3); Lymphocytes Absolute Auto 800 /uL (1100-4500); Mean Corpuscular HGB Conc 35.0 % (30-36); Mean Corpuscular Hemoglobin 42.9 PG (26-34); Mean Corpuscular Volume 122.6 fL (80-100); Platelet Count 320 X10^3/uL (150-400); Prothrombin Time 12.3 SECONDS (9.4-12.5)
[2025-08-06 12:52] LABS: PTT Partial Thromboplastin Tim 29 SECONDS (25.1-36.5)
--- NOTE | 2025-08-06 12:54 | EKG_ITS ---
[place] [id number] [address] [place] [id number] Test Date: 2025-08-06 Pat Name: Demetrio Donovan Department: [facility] Room: Gender: Male Research Scholar: : 1950 Requested By: Order Number: [id number] Reading MD: Juan Silva MD Measurements Intervals [place] Rate: 67 P: 49 [place]: 182 QRS: 13 QRSD: 90 T: 46 QT: 430 QTc: 454 Interpretive Statements Sinus rhythm with premature atrial complexes with aberrant conduction Low voltage QRS Electronically Signed On 08-06-2025 15:39:00 PST by Juan Silva MD
[2025-08-06 12:59] LABS: Alanine Aminotransferase 20 IU/L (<50); Albumin 4.2 g/dL (3.5-5.0); Albumin Globulin Ratio 1.4 (1.0-2.8); Alkaline Phosphatase 78 U/L (38-126); Blood Urea Nitrogen 18 mg/dL (9-20); Calcium 8.7 mg/dL (8.4-10.2); Carbon Dioxide 21 mmol/L (22-32); Chloride 107 mmol/L (98-107); Estimated Glomerular Filt Rate 37 mL/min (>60); Globulin 3.1 g/dL (1.7-4.1); Glucose 155 mg/dL (70-99); HEMOLYSIS 24 (0-50); Potassium 4.2 mmol/L (3.4-5.1); Sodium 139 mmol/L (137-145); Total Protein 7.3 g/dL (6.3-8.2)
--- NOTE | 2025-08-06 13:01 | PC.NURSE ---
Pt unable to cooperate with [facility]. distracted with pulling at lines and asking questions.
[2025-08-06 13:10] LABS: Appearance Urine UA SL CLOUDY; Bilirubin Urine UA NEGATIVE (NEGATIVE); Color Urine UA YELLOW; Glucose Urine UA NEGATIVE (Negative); Ketones Urine UA TRACE (NEGATIVE); Leukocyte Esterase Urine UA 2+ (NEGATIVE); Nitrite Urine UA POSITIVE (Negative); Occult Blood Urine UA TRACE-INTACT (Negative); Protein Urine UA 1+ (Negative); Specific Gravity Urine UA 1.015 (1.000-1.035); Urobilinogen Urine UA 0.2 E.U./dL (0.2); pH Urine UA 7.0 (4.5-8.0)
[2025-08-06 13:10] LABS: Ammonia (NH3) < 9 umol/L (9-30)
[2025-08-06 13:11] LABS: Troponin I < 0.012 ng/mL (0.01-0.034)
[2025-08-06 13:17] LABS: Culture Indicated Urine Specimen Cultured
[2025-08-06 13:32] LABS: Thyroid Stimulating Hormone 2.14 uIU/mL (0.47-4.68)
== END 2025-08-06 14:53 | disposition home or self-care (01) ==
PROVIDERS: Emergency Provider Emergency Medicine; PCP Internal Medicine
DX: N39.0 Urinary tract infection, site not specified (principal); B96.29 Other Escherichia coli [E. coli] as the cause of diseases classified elsewhere; B96.1 Klebsiella pneumoniae [K. pneumoniae] as the cause of diseases classified elsewhere; R41.82 Altered mental status, unspecified
CPT/HCPCS: 70450; 71045; 80053; 81001; 82140; 84443; 84484; 85025; 85610; 85730; 87077; 87086; 87186; 93005; 93010; 96365; 99284; J0696; J7050

== ENCOUNTER 2025-08-09 10:46 | Observation (INO) | payer MEDICARE, OTHER, SELFPAY ==
[2025-01-09 11:43] VITALS: BMI 25.7
--- NOTE | 2025-08-09 10:39 | ED.GENADULT ---
HPI - General Adult General Chief complaint: Altered Mental Status Stated complaint: UTI worsening confusion Time Seen by Provider: 08/09/25 10:48 History of Present Illness HPI narrative: 74-year-old gentleman with a history of hypertension, dementia, has had an ileal conduit lives at home this morning is not oriented to person time and place. His ER visit on the he was diagnosed with a urinary tract infection that has grown out Klebsiella and E coli was treated with Augmentin that we believe he has been taking. He is not currently febrile Review of recent ER records primary care notes indicate additional history of polycythemia vera, prior small bowel obstruction, he is followed at the [facility] and does a geriatric psychiatrist. There has been more issues with his dementia worsening with agitation and poor sleep. I do not see his indication for his ileal conduit. Patient is not able to offer any additional history. Related Data Home Medications ?Medication ?Instructions ?Recorded ?Confirmed donepezil 10 mg tablet 10 mg PO DAILY 04/16/23 08/09/24 escitalopram oxalate 20 mg tablet 20 mg PO DAILY Stabilize mood 04/14/24 08/09/24 quetiapine 50 mg tablet 50 mg PO DAILY agitation 01/09/25 01/09/25 trazodone 100 mg tablet 100 mg PO BEDTIME sleep aide 07/10/25 07/10/25 trazodone 50 mg tablet 50 mg PO TID Agitation, 07/10/25 07/10/25 restlessness Previous Rx's ?Medication ?Instructions ?Recorded lorazepam 1 mg tablet 1 mg PO TID PRN anxiety #20 tabs 07/16/23 hydroxyurea 500 mg capsule 1,000 mg (2 x 500 mg) PO DAILY #60 11/29/23 caps cephalexin 500 mg capsule 500 mg PO Q8H 10 days #30 caps 08/06/25 amoxicillin 875 mg-potassium 1 tab PO BID #14 tabs 08/08/25 clavulanate 125 mg tablet Allergies Allergy/AdvReac Type Severity Reaction Status Date / Time Sulfa (Sulfonamide Allergy Intermediate RASH Verified 08/06/25 12:48 Antibiotics) (SULFA (DON'T (SULFONAMIDE ANTIBIOTICS)) KNOW IF IT WAS THIS OR THE PYRIDIUM) memantine AdvReac Intermediate gi Verified 08/06/25 12:48 disurbance phenazopyridine (From AdvReac Intermediate RASH Verified 08/06/25 12:48 PYRIDIUM) (UNSURE IF IT WAS THIS OR THE SULFA) Review of Systems Review of Systems Narrative: Patient is too confused to meaningfully answer review of systems questions Patient History Medical History (Updated 08/09/25 @ 15:49 by Citlali Hobson MD) Small bowel obstruction Alzheimer disease Cerebral amyloid angiopathy Cognitive impairment Chronic renal failure, stage 3a Raynauds phenomenon Essential hypertension H/O prostate cancer 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 Polycythemia vera Hyperbilirubinemia Depression (09/02/17) 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) History of malignant neoplasm of bladder (08/06/17) Erectile dysfunction after radical cystectomy (08/06/17) Surgical History S/P ileal conduit (~08/2015) History of urostomy History of vasectomy Family History Brother Age: 74 Diabetes mellitus Hypertension PTSD (post-traumatic stress disorder) Father Age: 92 Obese Vertigo Prostate cancer Hypertension History of radical prostatectomy Mother Age: 91 Breast cancer Hypertension Mental health problem S/P breast lumpectomy Grandmother Heart disease Hypertension Sister Age: 68 Pulmonary hypertension Social History household members: spouse alcohol intake: current alcohol intake frequency: holidays/special occasions only Alcohol type: beer Exam Initial Vital Signs Initial Vital Signs: Vital Signs Temperature 97.8 F 08/09/25 10:47 Pulse Rate 81 08/09/25 10:47 Respiratory Rate 16 08/09/25 10:47 Blood Pressure 146/80 H 08/09/25 10:47 Pulse Oximetry 99 08/09/25 10:47 Oxygen Delivery Method Room Air 08/09/25 10:47 General: Healthy appearing, he is not alert to person time and place HEENT: Moist mucous membranes, normal sclera with reactive pupils, Respiratory: Lungs are clear to auscultation, no wheezing no rales no rhonchi. Full and symmetrical air movement Cardiac: Regular rate and rhythm Abdomen: Diffusely tender somewhat distended. Nonlocalizing. No pain behaviors with palpation of the flanks Skin: Warm and dry, no rashes Neurologic: Moving all extremities, Extremities: No trauma, Psych: Not oriented to person time and place, occasionally will talk to himself. Attempting to be cooperative. Not able to meaningfully answer questions or participate in conversation Course Orders Ordered: ED Orders 08/09/25 10:46 CT abdomen pelvis wo con Stat 08/09/25 10:47 Urinalysis and Microscopic Stat 08/09/25 11:00 Complete Blood Count AUTO DIFF Stat Comprehensive Metabolic Panel Stat Lactate (Lactic Acid) Stat Lipase Stat Magnesium Stat Procalcitonin Stat 08/09/25 11:10 Blood Culture Stat 08/09/25 14:26 Consult to [facility] - [employer] Stock Grader Stat 08/09/25 16:08 CT chest w con Stat Donepezil HCl (Donepezil 5 Mg Tablet) 10 mg PO DAILY SAMMY Escitalopram Oxalate (Escitalopram 10 Mg Tablet) 20 mg PO DAILY SAMMY Hydroxyurea (Hydroxyurea 500 Mg Capsule) 1,000 mg PO DAILY SAMMY Lorazepam (Lorazepam 1 Mg Tablet) 1 mg PO TID PRN PRN Reason: Anxiety Quetiapine Fumarate (Quetiapine 25 Mg Tablet) 50 mg PO DAILY SAMMY Trazodone HCl (Trazodone 50 Mg Tablet) 100 mg PO BEDTIME SAMMY Discontinued Medications Bisacodyl (Bisacodyl 5 Mg Tablet) 10 mg PO NOW ONE Stop: 08/09/25 16:12 Ceftriaxone Sodium 2,000 mg/ (Sodium Chloride) 100 mls @ 200 mls/hr IV NOW ONE Stop: 08/09/25 12:34 Last Infusion: 08/09/25 14:05 Dose: Infused Documented By: Admin: 08/09/25 13:06 Dose: 200 mls/hr Documented By: YOBANY Sodium Chloride (Normal Saline 0.9%) 1,000 mls @ 1,000 mls/hr IV BOLUS ONE Stop: 08/09/25 13:32 Last Infusion: 08/09/25 15:03 Dose: Infused Documented By: Admin: 08/09/25 13:05 Dose: 1,000 mls/hr Documented By: YOBANY Vital Signs Vital signs: Vital Signs - 8 hr 08/09/25 13:31 08/09/25 17:13 Pulse Rate 74 71 Respiratory Rate 20 18 Blood Pressure 156/83 H 147/83 H Pulse Oximetry 95 93 Oxygen Delivery Method Room Air Room Air Medical Decision Making Lab Data 08/09/25 11:00 08/09/25 11:00 Labs: Lab Results 08/09/25 Range/Units 11:00 WBC 6.7 (4.5-11.0) X10^3/uL RBC 3.57 L (4.5-5.9) X10^6/uL Hgb 15.1 (13.5-17.5) g/dL Hct 43.5 (41-53) % MCV 122.0 H (80-100) fL MCH 42.2 H (26-34) PG MCHC 34.6 (30-36) % RDW 14.9 H (11.6-14.8) % Plt Count 353 (150-400) X10^3/uL Neut % (Auto) 68.7 (50-75) % Lymph % (Auto) 17.1 L (25-40) % [place] % (Auto) 12.0 (3-14) % Eos % (Auto) 0.5 L (2-4) % Baso % (Auto) 1.7 (0-2) % Neut # (Auto) 4600 (3596-9596) /uL Lymph # (Auto) 1100 (7115-5698) /uL [place] # (Auto) 800 (0-900) /uL Eos # (Auto) 0 (0-450) /uL Baso # (Auto) 100 (0-100) /uL RBC Morphology Not Reportable Anisocytosis 2+ H Sodium 141 (137-145) mmol/L Potassium 4.3 (3.4-5.1) mmol/L Chloride 109 H (98-107) mmol/L Carbon Dioxide 22 (22-32) mmol/L BUN 20 (9-20) mg/dL Creatinine 1.83 H (0.66-1.25) mg/dL Estimated GFR 38 L (>60) mL/min BUN/Creatinine Ratio 10.9 (6-22) Glucose 125 H (70-99) mg/dL Lactate 0.9 (0.7-2.1) mmol/L Calcium 9.1 (8.4-10.2) mg/dL Magnesium 2.3 (1.6-2.3) mg/dL Total Bilirubin 0.7 (0.2-1.3) mg/dL AST 35 (17-59) IU/L ALT 23 (<50) IU/L Alkaline Phosphatase 90 (38-126) U/L Total Protein 7.6 (6.3-8.2) g/dL Albumin 4.4 (3.5-5.0) g/dL Globulin 3.2 (1.7-4.1) g/dL Albumin/Globulin Ratio 1.4 (1.0-2.8) Lipase 78 (23-300) U/L Procalcitonin 0.079 (<0.5) ng/mL Imaging Data CT scan - abdomen/pelvis: Radiologist's Impression: PROCEDURE: CT ABDOMEN PELVIS WO CON INDICATIONS: Abdominal distention, acutely altered mental status TECHNIQUE: CT of the abdomen and pelvis was obtained without intravenous contrast. Coronal and sagittal reformats were performed. For radiation dose reduction, the following was used: automated exposure control, adjustment of mA and/or kV according to patient size. COMPARISON: [facility], CT, ABDOMEN/PELVIS WITHOUT CONTRAS, 08/13/2015, 10:51. FINDINGS: Image quality: Diagnostic. Lower Chest: Minimal bibasilar atelectasis. Small hiatal hernia. Heart size is within normal limits. ABDOMEN: Liver: No contour-deforming mass. Gallbladder: Layering calcified gallstone. No gallbladder wall thickening. Biliary ducts: No biliary dilation. Pancreas: No ductal dilation. Spleen: Size is within normal limits. Adrenal Glands: No adrenal nodules. Kidneys and Ureters: No hydronephrosis. No contour-deforming mass. Stomach and Bowel: Normal colonic caliber, without significant wall thickening. Right colonic surgical clips. A right inguinal hernia contains nonobstructed ileum. The cecum is mobile, present in the right upper abdomen, anterior to the proximal transverse colon. The appendix is present. It is fluid-filled. It measures approximately 5 mm in diameter. It is likely a noninflamed appendix that happens to be filled with fluid. Peritoneum: No abnormal intraperitoneal fluid. No free air. Ventral Wall: No significant hernia. Abdominal Nodes: No retroperitoneal or mesenteric adenopathy by size criteria. Vessels: Aorta and inferior vena cava are normal in size. PELVIS: Pelvic Organs: Unremarkable. Bladder: Unremarkable. Pelvic Nodes: No enlarged lymph nodes. Miscellaneous: Right inguinal hernia contains nonobstructed ileum. Small fat containing left inguinal hernia. Bones: No aggressive osseous abnormality. Bilateral L5 pars defects. IMPRESSION: 1. Minimal bibasilar atelectasis. 2. Probable normal fluid-filled appendix. 3. Cholelithiasis. 4. Right inguinal hernia containing nonobstructed ileum. Dictated by: Sam Turner M.D. on 08/09/2025 at 11:47 MDM Narrative Medical decision making narrative: CC: Weakness and confusion Complicating co-morbidities: Alzheimer's disease recently diagnosed with urinary tract infection positive for Data collected from: Medics, , daughter. Patient is not able to offer much information Social determinants of health that may influence the patients condition: is taking care of him at home with his progressive Alzheimer's dementia. She does have somebody that comes in and will help with mobility and frequently is able to take him for a walk Medical records reviewed: Primary care notes are reviewed, recent ER visit and microbiology reviewed Differential considered: Sepsis, persistent urinary tract infection, bowel obstruction, abdominal pain exacerbating cognitive findings Exam documented above, pertinent findings include: Patient is not alert to person time and place. Abdomen is slightly distended and seems to be tender with palpation. No obvious trauma Lab Test results independently reviewed as above. Pertinent findings: CBC is unremarkable Chemistries show no change to his baseline kidney disease, liver studies and renal function is otherwise unremarkable Procalcitonin does not suggest significant infection Imaging studies independently reviewed: CT of the abdomen does not show dramatic abnormalities, he does not have evidence of pyelonephritis, bowel obstruction. He does have quite a bit of gas throughout his colon as well as stool Treatments: 2 g of IV ceftriaxone based on microbiology from the 7th, 1 L of fluid Re-evaluations: After a L of fluid we attempted to get the patient out of bed he was too weak to sit unassisted and absolutely unable to stand. This is a significant change from yesterday. Discussion: 74-year-old gentleman with progressive dementia still being cared for at home. Diagnosed with urinary tract infection, antibiotics were changed to Augmentin and got in a dose last night. This morning he was confused and weak enough that his and daughter when your unable to eating get him to sit up in bed. Medics were called for transport to the emergency department. Workup is actually quite reassuring. There was no evidence of sepsis, significant infection of any type, worsening kidney function, new liver function. He does not have new significant pathology based on his CT scan, no evidence of pneumonia. Patient is acting bit more normal according to his after a L of fluid. She is still concerned about taking care of him at home and is worried that he has not had a bowel movement in 5 days. He has very much failed a ?road test? with significant increased weakness. We will recommend hospitalization with continued ceftriaxone to treat his Klebsiella and E coli urinary tract infection, will need more aggressive bowel protocol to see if we can get his bowels to move which should help with his overall abdominal pain. The abdominal pain may be contributing to his worsening symptoms. We will discuss care with the hospitalist service Discharge Plan Departure Patient Disposition: Admitted as Observation Clinical Impression: Weakness, Dementia Urinary tract infection Qualifiers: Urinary tract infection type: acute cystitis Hematuria presence: with hematuria Qualified Code(s): N30.01 - Acute cystitis with hematuria Admit Date/Time: 08/09/25 18:03 Admit Provider: Toño Bauer
--- NOTE | 2025-08-09 10:46 | DI.CT.S_ITS ---
PROCEDURE: CT ABDOMEN PELVIS WO CON INDICATIONS: Abdominal distention, acutely altered mental status TECHNIQUE: CT of the abdomen and pelvis was obtained without intravenous contrast. Coronal and sagittal reformats were performed. For radiation dose reduction, the following was used: automated exposure control, adjustment of mA and/or kV according to patient size. COMPARISON: [facility], CT, ABDOMEN/PELVIS WITHOUT CONTRAS, 08/13/2015, 10:51. FINDINGS: Image quality: Diagnostic. Lower Chest: Minimal bibasilar atelectasis. Small hiatal hernia. Heart size is within normal limits. ABDOMEN: Liver: No contour-deforming mass. Gallbladder: Layering calcified gallstone. No gallbladder wall thickening. Biliary ducts: No biliary dilation. Pancreas: No ductal dilation. Spleen: Size is within normal limits. Adrenal Glands: No adrenal nodules. Kidneys and Ureters: No hydronephrosis. No contour-deforming mass. Stomach and Bowel: Normal colonic caliber, without significant wall thickening. Right colonic surgical clips. A right inguinal hernia contains nonobstructed ileum. The cecum is mobile, present in the right upper abdomen, anterior to the proximal transverse colon. The appendix is present. It is fluid-filled. It measures approximately 5 mm in diameter. It is likely a noninflamed appendix that happens to be filled with fluid. Peritoneum: No abnormal intraperitoneal fluid. No free air. Ventral Wall: No significant hernia. Abdominal Nodes: No retroperitoneal or mesenteric adenopathy by size criteria. Vessels: Aorta and inferior vena cava are normal in size. PELVIS: Pelvic Organs: Unremarkable. Bladder: Unremarkable. Pelvic Nodes: No enlarged lymph nodes. Miscellaneous: Right inguinal hernia contains nonobstructed ileum. Small fat containing left inguinal hernia. Bones: No aggressive osseous abnormality. Bilateral L5 pars defects. IMPRESSION: 1. Minimal bibasilar atelectasis. 2. Probable normal fluid-filled appendix. 3. Cholelithiasis. 4. Right inguinal hernia containing nonobstructed ileum. Dictated by: Sam Turner M.D. on 08/09/2025 at 11:47 Approved by: Sam Turner M.D. on 08/09/2025 at 11:53
[2025-08-09 10:47] VITALS: BP 146/80; PULSE 81; RESP 16; TEMP 36.6; O2SAT 99; BMI 29.0
[2025-08-09 11:30] LABS: Lactate (Lactic Acid) 0.9 mmol/L (0.7-2.1)
[2025-08-09 11:31] LABS: Alanine Aminotransferase 23 IU/L (<50); Albumin 4.4 g/dL (3.5-5.0); Albumin Globulin Ratio 1.4 (1.0-2.8); Alkaline Phosphatase 90 U/L (38-126); Blood Urea Nitrogen 20 mg/dL (9-20); Calcium 9.1 mg/dL (8.4-10.2); Carbon Dioxide 22 mmol/L (22-32); Chloride 109 mmol/L (98-107); Estimated Glomerular Filt Rate 38 mL/min (>60); Globulin 3.2 g/dL (1.7-4.1); Glucose 125 mg/dL (70-99); HEMOLYSIS < 15 (0-50); Lipase 78 U/L (23-300); Magnesium 2.3 mg/dL (1.6-2.3); Potassium 4.3 mmol/L (3.4-5.1); Sodium 141 mmol/L (137-145); Total Protein 7.6 g/dL (6.3-8.2)
[2025-08-09 11:38] LABS: Add Manual Diff / Slide Review NO; Hematocrit 43.5 % (41-53); Hemoglobin 15.1 g/dL (13.5-17.5); Lymphocytes Absolute Auto 1100 /uL (1100-4500); Mean Corpuscular HGB Conc 34.6 % (30-36); Mean Corpuscular Hemoglobin 42.2 PG (26-34); Mean Corpuscular Volume 122.0 fL (80-100); Platelet Count 353 X10^3/uL (150-400)
[2025-08-09 11:47] LABS: Procalcitonin 0.079 ng/mL (<0.5)
[2025-08-09 11:51] LABS: Anisocytosis 2+
[2025-08-09] MEDS: SODIUM CHLORIDE 0.9% 1,000 ML 1000 ML IV (13:05)
[2025-08-09] MEDS: cefTRIAXone 2,000 MG in SODIUM CHLORIDE 0.9% 100 ML 200 MG IV (13:06)
[2025-08-09 13:31] VITALS: BP 156/83; PULSE 74; RESP 20; O2SAT 95
--- NOTE | 2025-08-09 14:45 | CM.SWNOTE ---
ED LAMP MECHANIC Brief Note LAMP MECHANIC is present while ED provider is discussing home care vs. memory care facility options. LAMP MECHANIC provides patient's spouse with lists of private pay caregivers, lists of caregiver agencies, tips on hiring a caregiver and lists of LTC facilities and information regarding them. Patient's spouse denies need for home health referral. Patient's spouse endorses preference to hire caregiver and keep patient at home. Patient to d/c to home upon medical clearance, family to follow up with superintendent terminal care planning needs. Kristy Jordan, MARINE ENGINEER
--- NOTE | 2025-08-09 16:08 | DI.CT.S_ITS ---
PROCEDURE: CT CHEST W CON INDICATIONS: Hemoptysis TECHNIQUE: After the administration of intravenous contrast, 5 mm thick sections acquired from the pulmonary apices to the posterior costophrenic angles. 1 mm axial lung, 5 mm thick coronal and sagittal reformats and 7 mm axial MIP were acquired. For radiation dose reduction, the following was used: automated exposure control, adjustment of mA and/or kV according to patient size. COMPARISON: Outside Facility, , CT THORAX W/O CONTRAST, 04/04/2016, 11:04. [facility], CR, XR CHEST 1V, 08/06/2025, 13:08. FINDINGS: Image quality: Diagnostic. Lower Neck: No enlarged lymph nodes. Thyroid: No thyroid nodules which require sonographic follow up, per consensus guidelines. Axillae: No enlarged lymph nodes. Chest Wall: Unremarkable. Bones: Unremarkable. Lungs and Pleura: No pneumothorax or pleural effusions. No consolidation or suspicious nodules. 3 mm fissural nodule on the right series 3, image 141. It is new compared to 2016. Adjacent fissural nodule also seen on series 3, image 141 measuring approximately 6 mm has increased in size from approximately 3 mm on prior exam. Dependent changes are present within the left lower lobe. Heart: Heart size is normal. No pericardial effusion. Thoracic Vessels: The aorta and pulmonary arteries demonstrate normal size. Mediastinum and Daria: No enlarged lymph nodes. Esophagus: No wall thickening. Moderate hiatal hernia. Upper Abdomen: Visualized upper abdomen solid organs and bowel loops appear normal. IMPRESSION: Nodules as described above. Given appearance since 2016, likely benign. If high risk patient, 1 year follow-up. Moderate hiatal hernia. Dictated by: Renetta Sanders M.D. on 08/09/2025 at 17:14 Approved by: Renetta Sanders M.D. on 08/09/2025 at 17:17
[2025-08-09 17:13] VITALS: BP 147/83; PULSE 71; RESP 18; O2SAT 93
--- NOTE | 2025-08-09 17:59 | CM.IDA ---
Initial DCP Assessment Note Patient is 74 y/o male who presents to ED via EMS due to concern for worsening LOC, AMS, recent UTI dx on 08/06/25. Patient has also been constipated for the last 5 days. Patient's PCP is Dr. Silva, patient has Medicare and [employer] insurance. Patient has hx of Alzheimer's Dementia, hx of bladder cancer, Polycythemia vera, prostate cancer, current ileostomy bag, chronic renal failure, hypertension and skin cancer. SUPPORT ARCHITECT enters room, present in room is patient's spouse and daughter. SUPPORT ARCHITECT speaks with patient's spouse and daughter. It is reported that patient resides with spouse in [place], patient can typically ambulate independently at baseline, patient requires assistance with most ADLs, sometimes has difficulty following commands. Patient's spouse reports a family friend comes to support patient 2 days a week for a few hours. Patient's spouse is looking into hiring someone to assist with hygiene care, dressing and showering for patient. Spouse discusses preference for patient's comfort and preference for patient to return home upon d/c. SUPPORT ARCHITECT discusses Hospice vs. Home health, patient would like to review this with Dr. Silva. It is reported that patient has current POLST form - DNR with comfort care. Patient's spouse plans to hire a caregiver, SUPPORT ARCHITECT provides patient with caregiver contacts and resources. Patient is pending admission at this time as patient was unable to ambulate in the ED, pending evaluation from Dr. Silva. Plan: pending admission, DCP to f/u with family for POC, Hospice vs. HH at home with caregiver support. SANDRA Gale Discharge Planning/Care Management CM Discharge Assessment Start: 08/09/25 17:43 Freq: Status: Active Protocol: Document 08/09/25 17:43 LN (Rec: 08/09/25 17:46 LN [id number]) Discharge Planning Assessment Assigned Discharge SANDRA Wagner Manager Database Provider Dr. Silva Insurance Medicare,[facility] DPOA/Assigned Lilly Donovan/Spouse Designee Name Contact Information [phone] Advance Directives? Yes Advance Directives No on File History Provided By Family Member,Medical Record Has Patient been No admitted in last 30 days? Prior Living House Arrangements Household Members spouse Type of Relies on Others transporation used prior to admit Independent with ADL No 's Is patient alert and No oriented? Needs Assistance Bathing,Grooming,Meal Prep,Managing Medications,Home With Chores / Shopping Comment Hospice vs. Home health with caregiver at home Comment Home w/family expected Discharge Plan Home Transportation Family Arrangement Additional Comment Hospice vs. Home health
--- NOTE | 2025-08-09 18:18 | PM.HP.IH.1 ---
History of Present Illness History of Present Illness Date Patient Seen: 08/09/25 Chief complaint: UTI worsening confusion Narrative: 74-year-old male patient of Dr. Silva with hypertension, CKD, Alzheimer's dementia, polycythemia vera, bladder cancer s/p urostomy. Initially presented to ER three days ago where he was diagnosed with UTI, received IV fluids and antibiotics then discharged home on oral antibiotic. Culture grew out Klebsiella and E coli, patient was called regarding results and switched to Augmentin yesterday. This morning, he became increasingly confused and weak, unable to get out of bed due to significant weakness so was brought back to ER for re-evaluation. On initial exam he was noted to be disoriented and unable to walk due to significant weakness and confusion. Since arrival has been awakening and complaining of lower back pain. ER evaluation notable for WBC 6.7, normal hemoglobin 15.1 with MCV 122, creatinine 1.83, GFR 38; remainder of CBC, CMP, lipase, procalcitonin without significant derangements. CT chest showed benign appearing fissural nodules and hiatal hernia. CT A/P generally unremarkable without evidence of pyelonephritis, bowel obstruction, appendicitis but does show moderate gas and stool throughout colon. Patient admitted for continued IV antibiotic treatment in the setting of increased confusion and weakness making him unsafe to discharge home. 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) History of malignant neoplasm of bladder (08/06/17) Erectile dysfunction after radical cystectomy (08/06/17) Surgical History S/P ileal conduit (~08/2015) History of urostomy History of vasectomy Family History Brother Age: 74 Diabetes mellitus Hypertension PTSD (post-traumatic stress disorder) Father Age: 92 Obese Vertigo Prostate cancer Hypertension History of radical prostatectomy Mother Age: 91 Breast cancer Hypertension Mental health problem S/P breast lumpectomy Grandmother Heart disease Hypertension Sister Age: 68 Pulmonary hypertension Social History household members: spouse alcohol intake: current Meds Home Medications and Allergies Home Medications ?Medication ?Instructions ?Recorded ?Confirmed ?Type donepezil 10 mg tablet 10 mg PO DAILY 04/16/23 08/09/24 History lorazepam 1 mg tablet 1 mg PO TID PRN anxiety #20 tabs 07/16/23 08/09/24 Rx hydroxyurea 500 mg capsule 1,000 mg (2 x 500 mg) PO DAILY #60 11/29/23 08/09/24 Rx caps escitalopram oxalate 20 mg tablet 20 mg PO DAILY Stabilize mood 04/14/24 08/09/24 History quetiapine 50 mg tablet 50 mg PO DAILY agitation 01/09/25 01/09/25 History trazodone 100 mg tablet 100 mg PO BEDTIME sleep aide 07/10/25 07/10/25 History trazodone 50 mg tablet 50 mg PO TID Agitation, 07/10/25 07/10/25 History restlessness cephalexin 500 mg capsule 500 mg PO Q8H 10 days #30 caps 08/06/25 Rx amoxicillin 875 mg-potassium 1 tab PO BID #14 tabs 08/08/25 Rx clavulanate 125 mg tablet Allergies Allergy/AdvReac Type Severity Reaction Status Date / Time Sulfa (Sulfonamide Allergy Intermediate RASH Verified 08/06/25 12:48 Antibiotics) (SULFA (DON'T (SULFONAMIDE ANTIBIOTICS)) KNOW IF IT WAS THIS OR THE PYRIDIUM) memantine AdvReac Intermediate gi Verified 08/06/25 12:48 disurbance phenazopyridine (From AdvReac Intermediate RASH Verified 08/06/25 12:48 PYRIDIUM) (UNSURE IF IT WAS THIS OR THE SULFA) Review of Systems Review of Systems ROS: Yes All systems reviewed with the patient and are negative except as otherwise documented Exam Vital Signs (past 8 hours): - 08/09/25 10:47 08/09/25 13:31 08/09/25 17:13 Temperature 97.8 F Pulse Rate 81 74 71 Respiratory Rate 16 20 18 Blood Pressure 146/80 H 156/83 H 147/83 H Pulse Oximetry 99 95 93 Oxygen Delivery Method Room Air Room Air Room Air Oxygen Delivery Method Room Air Narrative Exam Narrative: General: Asleep, NAD HEENT: NC/AT, EOMI, moist membranes CV: RRR, normal S1-S2, no m/g/r Resp: CTAB, comfortable WOB Abd: Somewhat distended, urostomy in place Ext: No edema Skin: No rash or lesions noted Neuro: Per report not oriented to person time and place, moves all extremities Objective Labs 08/09/25 11:00 08/09/25 11:00 Labs: Laboratory Results - last 24 hr 08/09/25 11:00 WBC 6.7 RBC 3.57 L Hgb 15.1 Hct 43.5 MCV 122.0 H MCH 42.2 H MCHC 34.6 RDW 14.9 H Plt Count 353 Neut % (Auto) 68.7 Lymph % (Auto) 17.1 L [place] % (Auto) 12.0 Eos % (Auto) 0.5 L Baso % (Auto) 1.7 Neut # (Auto) 4600 Lymph # (Auto) 1100 [place] # (Auto) 800 Eos # (Auto) 0 Baso # (Auto) 100 RBC Morphology Not Reportable Anisocytosis 2+ H Sodium 141 Potassium 4.3 Chloride 109 H Carbon Dioxide 22 BUN 20 Creatinine 1.83 H Estimated GFR 38 L BUN/Creatinine Ratio 10.9 Glucose 125 H Lactate 0.9 Calcium 9.1 Magnesium 2.3 Total Bilirubin 0.7 AST 35 ALT 23 Alkaline Phosphatase 90 Total Protein 7.6 Albumin 4.4 Globulin 3.2 Albumin/Globulin Ratio 1.4 Lipase 78 Procalcitonin 0.079 Assessment & Plan Assessment and plan (1) Urinary tract infection: Qualifiers: Hematuria presence: with hematuria Urinary tract infection type: acute cystitis Qualified Code(s): N30.01 - Acute cystitis with hematuria Status: Acute (2) Acute alteration in mental status: Status: Acute (3) Weakness: Status: Acute (4) Constipation: Qualifiers: Constipation type: slow transit constipation Qualified Code(s): K59.01 - Slow transit constipation Status: Acute (5) Alzheimer disease: Problem details: per [facility] Status: Chronic (6) Dementia: Qualifiers: Alzheimer's disease onset: unspecified onset Dementia behavioral or psychological symptom: with agitation Dementia severity: unspecified severity Dementia type: Alzheimer's Qualified Code(s): G30.9 - Alzheimer's disease, unspecified; F02.811 - Dementia in other diseases classified elsewhere, unspecified severity, with agitation Status: Acute (7) Depression: Qualifiers: Active/Remission status: currently active Depression Type: major depressive disorder Major depression episode severity: mild Major depression recurrence: single episode Qualified Code(s): F32.0 - Major depressive disorder, single episode, mild Status: Chronic (8) Chronic renal failure, stage 3a: Status: Acute (9) Polycythemia vera: Problem details: Patient is diagnosed with polycythemia vera with JAK2 Exon 12 mutation. He is being followed at [facility]. Status: Acute Assessment & Plan narrative: 74-year-old male patient of Dr. Silva with hypertension, CKD, Alzheimer's dementia, polycythemia vera, bladder cancer s/p urostomy admitted for UTI with metabolic encephalopathy and weakness. #UTI 08/06 culture positive for E coli and Klebsiella oxytoca generally sensitive to most antibiotic options. May have to consider keeping admitted for duration of IV treatment due to extreme difficulty with oral medication administration at home reported by . -ceftriaxone 2g daily (08/09- ) #acute metabolic encephalopathy #weakness Likely direct result of UTI as there is no evidence of significant metabolic derangement on labs or other source of systemic infection on imaging. -PT consult #constipation Potential contributing factor to reported complain of back pain as well as distended abdomen. -bowel regimen #Alzheimer's dementia #depression Baseline confusion with agitation per family report. Often requires lorazepam to achieve adequate cooperation for basic activities such as bathing. Certainly contributing to current altered mental status. Sees Geriatric Psychiatry on chart review, we will continue he is complex outpatient regimen to minimize agitation. -donepezil, escitalopram daily -quetiapine, trazodone q.h.s. -lorazepam TID prn #CKD Renal function stable near baseline, no evidence of pyelonephritis on CT. -mIVF -avoid nephrotoxic meds #PCV Source of significant pruritus on chart review. reports difficult to administer/swallow medication due to lack of patient cooperation. Mentions this may be 1st medication to be withdrawn based on recent conversations with primary physician. -hydroxyurea daily Dispo: Acute care Diet: Heart healthy DVT ppx: SCDs Code: DNR PCP: Shira MDM: (Lilly, ) Time-Based Coding :: 35 minutes spent with patient and on the chart (including review of chart, obtaining history, exam, reviewing outside data, placing orders, documenting exam and treatment plan, and counseling patient) on 08/09/2025. [employer]r Document charge(s): Yes Charge Codes Initial inpatient/observation care: [id number]
--- NOTE | 2025-08-09 19:30 | PC.NURSE ---
Report received from Oscar Munoz RN
[2025-08-09 19:37] VITALS: BP 121/74; PULSE 69; O2SAT 92
[2025-08-09 23:40] VITALS: BP 134/74; PULSE 61; RESP 18; TEMP 37.1; O2SAT 93
[2025-08-10] VITALS: BMI 29.0
[2025-08-10] MEDS: SODIUM CHLORIDE 0.9% 1,000 ML 100 ML IV ×2 (00:30→09:50)
--- NOTE | 2025-08-10 04:42 | PC.NURSE ---
Patient non-compliant with care. Refuses to open eyes or respond to either this RN or family member at bedside. Responsive to firm sternal rub but will immediately close eyes and begin to snore. Protecting airway respirations equal even unlabored, in no apparent distress, & eyes PERRLA when eyelids lifted by this RN. VSS. Refusing to open mouth for medication or fluids. Unable to complete full assessment.
[2025-08-10 06:00] VITALS: BP 146/79; PULSE 56; RESP 15; TEMP 36.6; O2SAT 94
--- NOTE | 2025-08-10 07:13 | P.PN_ITS ---
Subjective Subjective Date Patient Seen: 08/10/25 Time Patient Seen: 07:13 Interval history: 74-year-old male with significant dementia and polycythemia also with chronic urostomy after cystectomy for bladder cancer admitted with UTI not responding to outpatient treatment with altered mental status etcetera Overnight patient has remained afebrile Vital signs have been acceptable some borderline hypertension Overnight patient seems to be much more alert and awake, although still talking gibberish and currently obsessed by his left-sided IV. Still complaining in some sort of fashion of abdominal discomfort thought to be secondary to his constipation Exam Vital Signs (past 8 hours): - 08/09/25 23:40 08/10/25 00:00 08/10/25 06:00 Temperature 98.8 F 97.9 F Pulse Rate 61 56 L Respiratory Rate 18 15 Blood Pressure 134/74 146/79 H Pulse Oximetry 93 94 Oxygen Delivery Method Room Air Oxygen Delivery Method Room Air Objective Labs 08/09/25 11:00 08/09/25 11:00 Labs: Laboratory Results - last 24 hr 08/09/25 11:00 WBC 6.7 RBC 3.57 L Hgb 15.1 Hct 43.5 MCV 122.0 H MCH 42.2 H MCHC 34.6 RDW 14.9 H Plt Count 353 Neut % (Auto) 68.7 Lymph % (Auto) 17.1 L [place] % (Auto) 12.0 Eos % (Auto) 0.5 L Baso % (Auto) 1.7 Neut # (Auto) 4600 Lymph # (Auto) 1100 [place] # (Auto) 800 Eos # (Auto) 0 Baso # (Auto) 100 RBC Morphology Not Reportable Anisocytosis 2+ H Sodium 141 Potassium 4.3 Chloride 109 H Carbon Dioxide 22 BUN 20 Creatinine 1.83 H Estimated GFR 38 L BUN/Creatinine Ratio 10.9 Glucose 125 H Lactate 0.9 Calcium 9.1 Magnesium 2.3 Total Bilirubin 0.7 AST 35 ALT 23 Alkaline Phosphatase 90 Total Protein 7.6 Albumin 4.4 Globulin 3.2 Albumin/Globulin Ratio 1.4 Lipase 78 Procalcitonin 0.079 [facility] Medical History (Updated 08/09/25 @ 20:05 by Toño Bauer MD) Small bowel obstruction Alzheimer disease Cerebral amyloid angiopathy Cognitive impairment Chronic renal failure, stage 3a Raynauds phenomenon Essential hypertension H/O prostate cancer 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 Polycythemia vera Hyperbilirubinemia Depression (09/02/17) 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) History of malignant neoplasm of bladder (08/06/17) Erectile dysfunction after radical cystectomy (08/06/17) Surgical History S/P ileal conduit (~08/2015) History of urostomy History of vasectomy Family History Brother Age: 74 Diabetes mellitus Hypertension PTSD (post-traumatic stress disorder) Father Age: 92 Obese Vertigo Prostate cancer Hypertension History of radical prostatectomy Mother Age: 91 Breast cancer Hypertension Mental health problem S/P breast lumpectomy Grandmother Heart disease Hypertension Sister Age: 68 Pulmonary hypertension Social History household members: spouse Smoking Status: Never smoker alcohol intake: current Assessment & Plan Assessment & Plan narrative: 1. UTI with Klebsiella and E coli sensitive to most tested antibiotics. Continue with parental antibiotics as part of the issues hematuria been administering oral antibiotics in this individual with significant cognitive impairment/dementia. Blood culture results still pending but clearly has metabolic encephalopathy in part due to his UTI that will need to clear before he can be discharged 2. Metabolic encephalopathy-likely prompted by his UTI although factors including his underlying dementia as well as perhaps even his constipation may be contributing factors. Correction of his UTI hopefully we will return him closer to baseline, which seems to already be in progress 3. Constipation-continue with bowel meds to try and improve stool output. Thus far had great difficulty getting him to take anything orally including his usual medications will have to I think resort to a suppository 4. Alzheimer's dementia-patient was some behavioral symptoms attached his dementia. Patient on a complex regimen of medications as prescribed by geriatric psychiatry in [place]. Will continue those here, assuming we can get him to take oral medications which has been an ongoing issue for patient at home. Had brief discussion with spouse regarding placement of a feeding tube which would allow for more consistent medication but of course with patient's dementia not sure that would be a safe option as he is already likely to pull his IV etcetera 5. Disposition-the patient likely to be held return home once his encephalopathy clears. Time-Based Coding :: [TOTAL MINUTES] spent with patient and on the chart (including review of chart, obtaining history, exam, reviewing outside data, placing orders, documenting exam and treatment plan, and counseling patient) on [DATE].
[2025-08-10 08:02] VITALS: BP 148/85; PULSE 63; RESP 14; TEMP 37.1; O2SAT 94
[2025-08-10] MEDS: HYDROXYUREA 500 MG CAPSULE 1000 MG PO (09:51)
[2025-08-10] MEDS: DONEPEZIL 5 MG TABLET 10 MG PO (09:51)
[2025-08-10] MEDS: DOCUSATE 100 MG CAPSULE PO (09:51)
[2025-08-10] MEDS: ESCITALOPRAM 10 MG TABLET 20 MG PO (09:51)
--- NOTE | 2025-08-10 11:42 | PC.NURSE ---
Pt is dressed and ready for discharge home with Spouse. IV has been removed. IM abx. given. Went over d/c instructions with Pt and Spouse-discussed d/c meds, time of last dose, reviewed stroke education, reminded Pt to drink plenty of fluids to prevent constipation or dehdyration and to take his full course of abx as prescribed. Pt and Spouse denied further questions and Pt was taken out via w/c by [employer] to POV with Spouse and all belongings.
--- NOTE | 2025-08-10 12:03 | P.DS_ITS ---
History of Present Illness History of Present Illness Date Patient Seen: 08/10/25 Time Patient Seen: 07:40 Chief complaint: UTI worsening confusion Narrative: 74-year-old male patient of Dr. Silva with hypertension, CKD, Alzheimer's dementia, polycythemia vera, bladder cancer s/p urostomy. Initially presented to ER three days ago where he was diagnosed with UTI, received IV fluids and antibiotics then discharged home on oral antibiotic. Culture grew out Klebsiella and E coli, patient was called regarding results and switched to Augmentin yesterday. This morning, he became increasingly confused and weak, unable to get out of bed due to significant weakness so was brought back to ER for re-evaluation. On initial exam he was noted to be disoriented and unable to walk due to significant weakness and confusion. Since arrival has been awakening and complaining of lower back pain. ER evaluation notable for WBC 6.7, normal hemoglobin 15.1 with MCV 122, creatinine 1.83, GFR 38; remainder of CBC, CMP, lipase, procalcitonin without significant derangements. CT chest showed benign appearing fissural nodules and hiatal hernia. CT A/P generally unremarkable without evidence of pyelonephritis, bowel obstruction, appendicitis but does show moderate gas and stool throughout colon. Patient admitted for continued IV antibiotic treatment in the setting of increased confusion and weakness making him unsafe to discharge home. {from Dr. Bauer's H&P 08/09/25} Discharge Providers Provider Date of admission: 08/09/25 18:02 Discharge Date: 08/10/25 Primary care physician: Juan Silav MD Consults: 08/09/25 14:26 [place] [facility] [place] Retail Customer Service Representative Stat Comment: Retail Customer Service Representative Consult needed for:: Other reason (Comment) Comment: home health, bath aid, 08/09/25 22:33 Consult to Discharge Planning Routine Comment: 08/10/25 04:48 Consult to Dietitian, Adult Routine Comment: Reason For Exam: family reports severe decrease in PO intake Discharge provider: Juan Silva MD Summary Hospital Course Discharge Diagnosis: 1. Acute metabolic encephalopathy secondary to UTI 2. UTI with Klebsiella and E coli 3. Alzheimer's dementia 4. Polycythemia vera 5. Cerebral amyloid angiopathy 6. Hypertension 7. Constipation Hospital Course: As above patient was admitted via the emergency department because of altered mental status. He was treated with parenteral antibiotics and within 12-18 hours mental status seemed to improve significantly to the point where it became somewhat agitated pulled out his IV etcetera. He was felt to be much better and therefore was given an additional dose of IM antibiotic therapy and discharged home to continue with oral antibiotics as his organisms were sensitive to multiple oral antibiotics. Slightly different antibiotic was chosen because of pill size with the generic Augmentin which was too difficult for patient to swallow Was overall felt that patient will be better off in his home environment and setting rather than trying to manage him in a hospital setting given his dementia with behavioral disturbance has noted previously. He did take all of his usual medications Also he was complaining of some degree of abdominal pain felt secondary to constipation. With various medications in the hospital he did have a large bowel movement prior to discharge Status at Discharge Cognitive/behavioral status at discharge: at baseline, confused Functional status at discharge: independent ambulation Overall status at discharge: patient is progressing back to baseline Time Spent with Patient Time spent: Less than 30 minutes Exam Vital Signs (past 8 hours): - 08/10/25 06:00 08/10/25 08:02 Temperature 97.9 F 98.8 F Pulse Rate 56 L 63 Respiratory Rate 15 14 Blood Pressure 146/79 H 148/85 H Pulse Oximetry 94 94 Oxygen Flow Rate 0 Oxygen Delivery Method Room Air Oxygen Flow Rate 0 Objective Labs 08/09/25 11:00 08/09/25 11:00 [facility] Medical History Small bowel obstruction Alzheimer disease Cerebral amyloid angiopathy Cognitive impairment Chronic renal failure, stage 3a Raynauds phenomenon Essential hypertension H/O prostate cancer 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 Polycythemia vera Hyperbilirubinemia Depression (09/02/17) 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) History of malignant neoplasm of bladder (08/06/17) Erectile dysfunction after radical cystectomy (08/06/17) Surgical History S/P ileal conduit (~08/2015) History of urostomy History of vasectomy Family History Brother Age: 76 Diabetes mellitus Hypertension PTSD (post-traumatic stress disorder) Father Age: 94 Obese Vertigo Prostate cancer Hypertension History of radical prostatectomy Mother Age: 93 Breast cancer Hypertension Mental health problem S/P breast lumpectomy Grandmother Heart disease Hypertension Sister Age: 70 Pulmonary hypertension Social History household members: spouse alcohol intake: current Discharge Plan Discharge Plan Patient Disposition: Home Discharge orders & Medications Prescriptions: New doxycycline hyclate 100 mg capsule 100 mg PO BID 7 Days Qty: 14 0RF Continued lorazepam 1 mg tablet 1 mg PO TID PRN (Reason: anxiety) Qty: 20 0RF quetiapine 50 mg tablet 50 mg PO DAILY Patient Comments: Take in PM. Take 1 additional in AM if needed Rx Instructions: 1 additional tab in AM if needed. trazodone 100 mg tablet 100 mg PO BEDTIME donepezil 10 mg tablet 10 mg PO DAILY escitalopram oxalate 20 mg tablet 20 mg PO DAILY trazodone 50 mg tablet 50 mg PO TID Patient Comments: Up to 3x per day as needed in addition to 100mg at bedtime hydroxyurea 500 mg Capsule 1,000 mg PO DAILY Qty: 90 0RF Discontinued cephalexin 500 mg capsule 500 mg PO Q8H 10 Days Qty: 30 0RF amoxicillin-pot clavulanate 875-125 mg tablet 1 tab PO BID Qty: 14 0RF Follow up/Referrals: Juan Silva MD [Primary Care Provider, Internal Medicine] - 2 Weeks Discharge Health Status Multidrug resistant organism: No MDRO Diet/Activity/Treatments Diet: Diet as Tolerated Visit Report/Discharge Packet Instructions: DI for Urinary Tract Infection (UTI), Doxycycline (By mouth) Stand Alone Forms: Patient Portal/API, Stroke Signs & Symptoms Discharge Data Primary Care Provider: Juan Silva Attending Provider: Juan Silva Admit Date/Time: 08/09/25 18:02 [facility] PROFEE Charge Codes Discharge inpatient/observation: 12790
== END 2025-08-10 11:45 | disposition home or self-care (01) ==
LOC: ED 15:49 → AC 18:34 → LABOR 23:11 → ED 08-10 00:02 → LABOR 08-10 00:12
PROVIDERS: Admitting Provider Family Medicine; Emergency Provider Emergency Medicine; PCP Internal Medicine; Referring Provider Emergency Medicine; Visit Provider Internal Medicine
DX: N30.01 Acute cystitis with hematuria (principal); G93.41 Metabolic encephalopathy; B96.20 Unspecified Escherichia coli [E. coli] as the cause of diseases classified elsewhere; R82.71 Bacteriuria; R53.1 Weakness; G30.9 Alzheimer's disease, unspecified; F02.80 Dementia in other diseases classified elsewhere, unspecified severity, without behavioral disturbance, psychotic disturbance, mood disturbance, and anxiety; F02.811 Dementia in other diseases classified elsewhere, unspecified severity, with agitation; F32.0 Major depressive disorder, single episode, mild; I12.9 Hypertensive chronic kidney disease with stage 1 through stage 4 chronic kidney disease, or unspecified chronic kidney disease; N18.31 Chronic kidney disease, stage 3a; D45 Polycythemia vera; K59.00 Constipation, unspecified; L29.9 Pruritus, unspecified; E85.4 Organ-limited amyloidosis; I68.0 Cerebral amyloid angiopathy; Z85.51 Personal history of malignant neoplasm of bladder; Z66 Do not resuscitate
CPT/HCPCS: 36415; 71260; 74176; 80053; 83605; 83690; 83735; 84145; 85025; 87040; 96365; 96372; 99284; G0378; J0696; J7030; J7050; Q9967